=== PATIENT | male | born 1960 | race Caucasian/White ===

== ENCOUNTER 2017-02-06 14:15 | Inpatient (IN) | payer OTHER ==
[2017-02-06 14:24] VITALS: BMI 28.8
--- NOTE | 2017-02-06 14:26 | HP ---
CIWA Score - CIWA Score Nausea/Vomitin-Mild Nausea/No Vomiting Muscle Tremors: 4-Moderate,w/Arms Extend Anxiety: 4-Mod. Anxious/Guarded Agitation: 4-Moderately Restless Paroxysmal Sweats: 1-Minimal Palms Moist Orientation: 1-Uncertain about Date Tacttile Disturbances: 0-None Auditory Disturbances: 0-None Visual Disturbances: 0-None Headache: 1-Very Mild CIWA-Ar Total Score: 16 Admission ROS BHS - HPI Chief Complaint: withdrawal sx Allergies/Adverse Reactions: Allergies Allergy/AdvReac Type Severity Reaction Status Date / Time No Known Allergies Allergy Verified 02/06/17 14:22 History of Present Illness: 57 years old male with long history of alcohol nicotine dependence has hypertension history of pulmonary embolism treated with coumadin bipolar ii is admitted to detox Exam Limitations: No Limitations - Ebola screening Have you traveled outside of the country in the last 21 days: No Have you had contact with anyone from an Ebola affected area: No Have you been sick,other than usual withdrawal symptoms: No Do you have a fever: No - Review of Systems Constitutional: Changes in sleep, Weight Stable EENT: reports: Blurred Vision (eye glasses) Respiratory: reports: SOB with Exertion Cardiac: reports: No Symptoms Reported GI: reports: Diarrhea, Nausea, Poor Fluid Intake, Indigestion, Abdominal cramping : reports: No Symptoms Reported Musculoskeletal: reports: Back Pain, Joint Pain, Muscle Pain, Neck Pain Integumentary: reports: No Symptoms Reported, Other (history of skin cancer) Neuro: reports: Seizure (2014 alcohol withdrawal), Tremors Endocrine: reports: No Symptoms Reported Hematology: reports: Blood Clots (pulmonary) Psychiatric: reports: Judgement Intact, Anxious, Depressed Other Systems: Reviewed and Negative Patient History - Patient Medical History Hx Anemia: No Hx Asthma: No Hx Chronic Obstructive Pulmonary Disease (COPD): No Hx Cancer: No Hx Cardiac Disorders: No Hx Congestive Heart Failure: No Hx Hypertension: Yes Hx Hypercholesterolemia: Yes (non compliance) Hx Pacemaker: No HX Cerebrovascular Accident: No Hx Seizures: Yes (etoh related) Hx Dementia: No Hx Diabetes: No Hx Gastrointestinal Disorders: Yes Hx Liver Disease: No Hx Genitourinary Disorders: No Hx Sexually Transmitted Disorders: No Hx Renal Disease (ESRD): No Hx Thyroid Disease: No Hx Human Immunodeficiency Virus (HIV): No Hx Hepatitis C: No Hx Depression: No (manic) Hx Suicide Attempt: Yes (jump [place] bridge 12 years) Hx Bipolar Disorder: Yes Hx Schizophrenia: No - Patient Surgical History Past Surgical History: Yes Hx Neurologic Surgery: No Hx Cataract Extraction: No Hx Cardiac Surgery: No Hx Lung Surgery: No Hx Breast Surgery: No Hx Breast Biopsy: No Hx Abdominal Surgery: Yes (s/p repair of right inguinal hernia repair ) Hx Appendectomy: No Hx Cholecystectomy: No Hx Genitourinary Surgery: No Hx Orthopedic Surgery: No Other Surgical History: arthroscopic surgery right knee for torn meniscus 20 years ago Anesthesia Reaction: No - PPD History Previous Implant?: Yes Documented Results: Negative w/proof Implanted On Prior R Admission?: Yes Date: 08/21/13 PPD to be Administered?: Yes - Smoking Cessation Smoking history: Current every day smoker Have you smoked in the past 12 months: Yes Aproximately how many cigarettes per day: 20 Cigars Per Day: 0 Hx Chewing Tobacco Use: No Initiated information on smoking cessation: Yes 'Breaking Loose' booklet given: 02/06/17 - Substance & Tx. History Hx Alcohol Use: Yes Hx Substance Use: No Substance Use Type: Alcohol Hx Substance Use Treatment: Yes (07/2016 [facility]) - Substances Abused Alcohol Route: Oral Frequency: Daily Amount used: 2-3 PINTS HARD LIQUOR Age of first use: 15 Date of Last Use: 02/05/17 Family Disease History - Family Disease History Family Disease History: Diabetes: Father, Mother (alzheimer), Heart Disease: Father, Other: Grandparent (alcohol), Mother Admission Physical Exam S - Physical General Appearance: Yes: Appropriately Dressed, Mild Distress, Tremorous, Irritable, Sweating, Anxious HEENTM: Yes: Hearing grossly Normal, Normal ENT Inspection, Normocephalic, Normal Voice Respiratory: Yes: Chest Non-Tender, Lungs Clear, Normal Breath Sounds, No Respiratory Distress, No Accessory Muscle Use Neck: Yes: Supple, Trachea in good position Breast: Yes: Breasts Symetrical Cardiology: Yes: Regular Rhythm, S1, S2, Tachycardia Abdominal: Yes: Non Tender, Soft, Increased Bowel Sounds Genitourinary: Yes: Within Normal Limits Back: Yes: Normal Inspection Musculoskeletal: Yes: full range of Motion, Gait Steady, Back pain, Muscle Pain Extremities: Yes: Normal Inspection, Normal Range of Motion, Non-Tender, Tremors Neurological: Yes: Alert, Motor Strength 5/5, Normal Response, Depressed Affect Integumentary: Yes: Warm, Other (history of alcohol seizure) Lymphatic: Yes: Within Normal Limits - Diagnostic (1) Alcohol dependence with uncomplicated withdrawal Current Visit: Yes Status: Acute (2) Bipolar II disorder Current Visit: Yes Status: Suspected (3) Neuropathy, alcoholic Current Visit: Yes Status: Chronic (4) Seizure due to alcohol withdrawal Current Visit: Yes Status: Inactive (5) Pulmonary embolism Current Visit: Yes Status: Resolved Qualifiers: Pulmonary embolism type: other Chronicity: chronic Acute cor pulmonale presence: without acute cor pulmonale Qualified Code(s): I27.82 - Chronic pulmonary embolism (6) Essential hypertension Current Visit: Yes Status: Chronic (7) Gastroesophageal reflux disease Current Visit: Yes Status: Chronic (8) Hypercholesterolemia Current Visit: Yes Status: Chronic (9) Nicotine dependence Current Visit: Yes Status: Acute Qualifiers: Nicotine product type: cigarettes Substance use status: in withdrawal Qualified Code(s): F17.213 - Nicotine dependence, cigarettes, with withdrawal Cleared for Admission BHS - Detox or Rehab S Level of Care: Medically Managed Detox Regimen/Protocol: Librium S Breath Alcohol Content Breath Alcohol Content: 0
[2017-02-06] MEDS ORDERED: MAGNESIUM CITRATE 300 ML BOTTLE PO PRN (14:27)
[2017-02-06] MEDS ORDERED: MAG HYDROX/AL HYDROX/SIMETH 30 ML UNIT-DOSE CUP PO PRN (14:27)
[2017-02-06] MEDS ORDERED: ACETAMINOPHEN 325 MG TABLET (FP) PO PRN (14:27)
[2017-02-06] MEDS ORDERED: MENTHOL/PHENOL 1 EACH UD MM PRN (14:27)
[2017-02-06] MEDS ORDERED: chlordiazePOXIDE HCL 25 MG CAPSULE PO PRN (14:27)
[2017-02-06] MEDS ORDERED: MAGNESIUM HYDROX 2400MG/30ML ORAL SUSPENSION 30 ML CUP PO PRN (14:27)
[2017-02-06] MEDS ORDERED: guaiFENesin/D-METHORPHAN HB 10 ML UNIT-DOSE CUPS PO PRN (14:27)
[2017-02-06] MEDS ORDERED: NICOTINE POLACRILEX 4 MG GUM BUC PRN (14:27)
[2017-02-06] MEDS ORDERED: P-EPHED 60MG/TRIPROLIDI 2.5MG TABLET PO PRN (14:27)
[2017-02-06] MEDS ORDERED: chlordiazePOXIDE HCL 25 MG CAPSULE PO ONE (14:35)
[2017-02-06] MEDS ORDERED: chlordiazePOXIDE HCL 25 MG CAPSULE ONE (17:25)
[2017-02-06] MEDS ORDERED: ENALAPRIL MALEATE 10 MG TABLET (FP) PO ONE (17:38)
[2017-02-06] MEDS: RANITIDINE HCL 150 MG TABLET (FP) PO SCH (22:05)
[2017-02-06] MEDS: chlordiazePOXIDE HCL 25 MG CAPSULE PO SCH (22:05)
[2017-02-06] MEDS: THIAMINE HCL 100 MG TABLET (FP) PO SCH (22:05)
[2017-02-06 22:51] LABS: URINE APPEARANCE SLCLOUDY; URINE BILIRUBIN NEGATIVE (NEGATIVE); URINE BLOOD NEGATIVE (NEGATIVE); URINE COLOR AMBER; URINE GLUCOSE (UA) NEGATIVE (NEGATIVE); URINE KETONE NEGATIVE (NEGATIVE); URINE LEUK ESTERASE NEGATIVE (NEGATIVE); URINE NITRITE NEGATIVE (NEGATIVE); URINE PROTEIN NEGATIVE (NEGATIVE); URINE UROBILINOGEN NEGATIVE mg/dL (0.2-1.0)
[2017-02-07] MEDS: chlordiazePOXIDE HCL 25 MG CAPSULE PO SCH ×4 (05:22→22:04)
[2017-02-07 09:56] LABS: MCHC 32.4 g/dl (32.0-35.9); MEAN CELL VOLUME 92.4 fl (80-96); MEAN PLT VOLUME 7.9 fl (7.5-11.1); PLATELET COUNT 184 K/MM3 (134-434); RDW 15.9 % (11.9-15.9); WHITE BLOOD COUNT 5.9 K/mm3 (4.0-10.0)
[2017-02-07] MEDS: PRENATAL VITAMINS W/ FOLIC ACID TABLET (FP) PO SCH (10:02)
[2017-02-07] MEDS: RANITIDINE HCL 150 MG TABLET (FP) PO SCH ×2 (10:02→22:04)
[2017-02-07] MEDS: ENALAPRIL MALEATE 10 MG TABLET (FP) PO SCH (10:02)
[2017-02-07] MEDS: NICOTINE 21 MG/24 HOURS TOPICAL PATCH TD SCH (10:03)
[2017-02-07 10:20] LABS: INR 0.94 (0.82-1.09); PROTHROMBIN TIME (PATIENT) 10.6 SEC (9.98-11.88)
[2017-02-07 10:24] LABS: ALBUMIN 3.3 g/dl (3.4-5.0); ALK PHOS 77 U/L (45-117); ANION GAP 8 (8-16); BILIRUBIN,TOTAL 0.7 mg/dL (0.2-1.0); CALCIUM 8.6 mg/dL (8.5-10.1); CO2 28 mmol/L (21-32); GLUCOSE,RANDOM 100 mg/dL (74-106); SGOT/AST 12 U/L (15-37); SGPT/ALT 15 U/L (12-78); TOT PROT 6.3 g/dl (6.4-8.2)
--- NOTE | 2017-02-07 10:40 | CONSULT ---
[facility] Psychiatric Consult - Data Date of interview: 02/07/17 Admission source: [facility] Identifying data: Readmission to [facility] for this 57 y/o male seeking detox treatment on for alcohol dependence.Patient is ,a father of one,domiciled,unemployed andcurrently supported by relatives. Substance Abuse History: Discussed in this session.Mr Ortega admits to active use of alcohol on a daily basis.See current [facility] report for details : Smoking history: Current every day smoker. Have you smoked in the past 12 months: Yes. Aproximately how many cigarettes per day: 20. Cigars Per Day: 0. Hx Chewing Tobacco Use: No. Initiated information on smoking cessation: Yes. 'Breaking Loose' booklet given: 02/06/17. - Substance & Tx. History. Hx Alcohol Use: Yes. Hx Substance Use: No. Substance Use Type: Alcohol. Hx Substance Use Treatment: Yes (07/2016 [facility]). - Substances Abused. Alcohol. Route: Oral. Frequency: Daily. Amount used: 2-3 PINTS HARD LIQUOR. Age of first use : 15. Date of Last Use: 02/05/17 Medical History: Hypertension,dyslipidemia,withdrawal-related seizures,GERD, neuropathy,past history of right inguinal herniorraphy and arthroscopic surgery of right knee (years ago). Psychiatric History: Patient admits to a history of multiple psychiatric hospitalizations ([facility], [facility]).Diagnosed with Bipolar Disorder,OCD,ADHD as per self-report.Prescibed lamictal 150 mg po bid + trazodone 200 mg/hs + wellbutrin XL 300 mg/daily.Last taken in early December 2016.Mr Ortega reports that he stopped taking his medications immediately after his release from correction (four months of incarceration at the [facility]).Prior to his incarceration,the patient was followed at the [facility] clinic in [facility].No suicide attempt reported (was prevented by Police on the [facility],years ago,from attempting suicide). Physical/Sexual Abuse/Trauma History: Patient denies history of abuse. Additional Comment: No toxicology available on admission. Mental Status Exam - Mental Status Exam Alert and Oriented to: Time, Place, Person Cognitive Function: Good Patient Appearance: Unkempt, Disheveled (unshaven) Mood: Hopeful, Euthymic Affect: Appropriate, Normal Range Patient Behavior: Fatigued, Appropriate (pleasant and friendly), Cooperative Speech Pattern: Clear, Appropriate Voice Loudness: Normal Thought Process: Goal Oriented Thought Disorder: Not Present Hallucinations: Denies Suicidal Ideation: Denies Homicidal Ideation: Denies Insight/Judgement: Poor Sleep: Poorly, Difficulty falling asleep Appetite: Good Muscle strength/Tone: Normal Gait/Station: Normal Psychiatric Findings - Problem List ([place] 1, 2,3) (1) Alcohol dependence with uncomplicated withdrawal Current Visit: Yes Status: Acute (2) Nicotine dependence Current Visit: Yes Status: Acute Qualifiers: Nicotine product type: cigarettes Substance use status: in withdrawal Qualified Code(s): F17.213 - Nicotine dependence, cigarettes, with withdrawal (3) Substance induced mood disorder Current Visit: Yes Status: Acute (4) Bipolar disorder Current Visit: Yes Status: Chronic Comment: Self-report.Non-adherent to prescribed medications. (5) Insomnia Current Visit: Yes Status: Acute - Initial Treatment Plan Initial Treatment Plan: Psychoeducation.Detoxification.Sleep hygiene.Medications : wellbutrin XL 150 mg po hs + trazodone 100 mg po hs.Lamictal not restarted (patient declines to have the drug resumed at a reduced dose).Side effects/benefits of lamictal,wellbutrin/trazodone are discussed with patient (including risks for Smyth Sreekanth's syndrome,seizures and priapism) are discussed with the patient.Mr Ortega agrees with this careplan.Observation.Contact made with [employer] # [id number] ([phone]) for review of pharmacy claims : patient NOT on file.
--- NOTE | 2017-02-07 11:08 | PN ---
[facility] CIWA - CIWA Score Nausea/Vomitin-No Nausea/No Vomiting Muscle Tremors: 4-Moderate,w/Arms Extend Anxiety: 4-Mod. Anxious/Guarded Agitation: 4-Moderately Restless Paroxysmal Sweats: 1-Minimal Palms Moist Orientation: 0-Oriented Tacttile Disturbances: 3-Moderate Itch/Numb/Burn Auditory Disturbances: 0-None Visual Disturbances: 0-None Headache: 0-None Present CIWA-Ar Total Score: 16 BHS Progress Note (SOAP) Subjective: ANXIETY,SWEATS,TREMORS, INTERMITTENT SLEEP. Objective: 02/07/17 11:08 Vital Signs Temperature 97.6 F 02/07/17 09:15 Pulse Rate 83 02/07/17 09:15 Respiratory Rate 18 02/07/17 09:15 Blood Pressure 113/82 02/07/17 09:15 O2 Sat by Pulse Oximetry (%) Laboratory Last Values WBC 5.9 K/mm3 (4.0-10.0) 02/07/17 07:00 RBC 4.76 M/mm3 (4.00-5.60) 02/07/17 07:00 Hgb 14.3 GM/dL (11.7-16.9) 02/07/17 07:00 Hct 44.0 % (35.4-49) 02/07/17 07:00 MCV 92.4 fl (80-96) 02/07/17 07:00 MCH 30.0 pg (25.7-33.7) 02/07/17 07:00 MCHC 32.4 g/dl (32.0-35.9) 02/07/17 07:00 RDW 15.9 % (11.9-15.9) 02/07/17 07:00 Plt Count 184 K/MM3 (134-434) 02/07/17 07:00 MPV 7.9 fl (7.5-11.1) 02/07/17 07:00 PT with INR 10.60 SEC (9.98-11.88) 02/07/17 07:00 INR 0.94 (0.82-1.09) 02/07/17 07:00 Sodium 140 mmol/L (136-145) 02/07/17 07:00 Potassium 4.1 mmol/L (3.5-5.1) 02/07/17 07:00 Chloride 104 mmol/L (98-107) 02/07/17 07:00 Carbon Dioxide 28 mmol/L (21-32) 02/07/17 07:00 Anion Gap 8 (8-16) 02/07/17 07:00 BUN 14 mg/dL (7-18) D 02/07/17 07:00 Creatinine 1.0 mg/dL (0.7-1.3) 02/07/17 07:00 Creat Clearance w eGFR > 60 (>60) 02/07/17 07:00 Random Glucose 100 mg/dL (74-106) D 02/07/17 07:00 Calcium 8.6 mg/dL (8.5-10.1) 02/07/17 07:00 Total Bilirubin 0.7 mg/dL (0.2-1.0) 02/07/17 07:00 AST 12 U/L (15-37) L D 02/07/17 07:00 ALT 15 U/L (12-78) D 02/07/17 07:00 Alkaline Phosphatase 77 U/L (45-117) 02/07/17 07:00 Total Protein 6.3 g/dl (6.4-8.2) L 02/07/17 07:00 Albumin 3.3 g/dl (3.4-5.0) L 02/07/17 07:00 Urine Color Eli 02/06/17 20:00 Urine Appearance Slcloudy 02/06/17 20:00 Urine pH 5.0 (5.0-8.0) 02/06/17 20:00 Ur Specific [place] 1.020 (1.001-1.035) 02/06/17 20:00 Urine Protein Negative (NEGATIVE) 02/06/17 20:00 Urine Glucose (UA) Negative (NEGATIVE) 02/06/17 20:00 Urine Ketones Negative (NEGATIVE) 02/06/17 20:00 Urine Blood Negative (NEGATIVE) 02/06/17 20:00 Urine Nitrite Negative (NEGATIVE) 02/06/17 20:00 Urine Bilirubin Negative (NEGATIVE) 02/06/17 20:00 Urine Urobilinogen Negative mg/dL (0.2-1.0) 02/06/17 20:00 Assessment: 02/07/17 11:08 WITHDRAWAL SX Plan: CONTINUE DETOX
[2017-02-07] MEDS ORDERED: chlordiazePOXIDE HCL 25 MG CAPSULE PO ONE (14:30)
[2017-02-07] MEDS: WARFARIN NA 3 MG TABLET PO SCH (17:01)
[2017-02-07 17:17] LABS: URINE LEUK ESTERASE Negative (NEGATIVE)
[2017-02-07] MEDS: traZODone HCL 100 MG TABLET (FP) PO SCH (22:04)
[2017-02-07] MEDS: THIAMINE HCL 100 MG TABLET (FP) PO SCH (22:04)
--- NOTE | 2017-02-08 01:55 | EKG ---
Test Reason : Blood Pressure : / mmHG Vent. Rate : 100 BPM Atrial Rate : 100 BPM P-R Int : 156 ms QRS Dur : 114 ms QT Int : 382 ms P-R-T Axes : -10 -04 -01 degrees QTc Int : 492 ms NORMAL SINUS RHYTHM INCOMPLETE RIGHT BUNDLE BRANCH BLOCK INFERIOR INFARCT , AGE UNDETERMINED CANNOT RULE OUT ANTERIOR INFARCT , AGE UNDETERMINED ABNORMAL ECG NO PREVIOUS ECGS AVAILABLE Confirmed by MAYCO PRITCHETT MD ([id number]) on 02/08/2017 1:55:11 AM Referred By: Confirmed By:MAYCO PRITCHETT MD
[2017-02-08] MEDS: chlordiazePOXIDE HCL 25 MG CAPSULE PO SCH ×3 (05:34→17:19)
[2017-02-08] MEDS: PRENATAL VITAMINS W/ FOLIC ACID TABLET (FP) PO SCH (10:09)
[2017-02-08] MEDS: RANITIDINE HCL 150 MG TABLET (FP) PO SCH ×2 (10:09→22:04)
[2017-02-08] MEDS: NICOTINE 21 MG/24 HOURS TOPICAL PATCH TD SCH (10:09)
[2017-02-08] MEDS: ENALAPRIL MALEATE 10 MG TABLET (FP) PO SCH (10:10)
--- NOTE | 2017-02-08 10:57 | PN ---
[facility] CIWA - CIWA Score Nausea/Vomitin-No Nausea/No Vomiting Muscle Tremors: 4-Moderate,w/Arms Extend Anxiety: 5 Agitation: 4-Moderately Restless Paroxysmal Sweats: 1-Minimal Palms Moist Orientation: 0-Oriented Tacttile Disturbances: 3-Moderate Itch/Numb/Burn Auditory Disturbances: 0-None Visual Disturbances: 0-None Headache: 0-None Present CIWA-Ar Total Score: 17 S Progress Note (SOAP) Subjective: TREMULOUS, ANXIETY,CHILLS, FATIGUE. Objective: 02/08/17 10:56 Vital Signs Temperature 97.2 F L 02/08/17 08:59 Pulse Rate 76 02/08/17 08:59 Respiratory Rate 18 02/08/17 08:59 Blood Pressure 107/75 02/08/17 08:59 O2 Sat by Pulse Oximetry (%) Laboratory Last Values WBC 5.9 K/mm3 (4.0-10.0) 02/07/17 07:00 RBC 4.76 M/mm3 (4.00-5.60) 02/07/17 07:00 Hgb 14.3 GM/dL (11.7-16.9) 02/07/17 07:00 Hct 44.0 % (35.4-49) 02/07/17 07:00 MCV 92.4 fl (80-96) 02/07/17 07:00 MCH 30.0 pg (25.7-33.7) 02/07/17 07:00 MCHC 32.4 g/dl (32.0-35.9) 02/07/17 07:00 RDW 15.9 % (11.9-15.9) 02/07/17 07:00 Plt Count 184 K/MM3 (134-434) 02/07/17 07:00 MPV 7.9 fl (7.5-11.1) 02/07/17 07:00 PT with INR 10.60 SEC (9.98-11.88) 02/07/17 07:00 INR 0.94 (0.82-1.09) 02/07/17 07:00 Sodium 140 mmol/L (136-145) 02/07/17 07:00 Potassium 4.1 mmol/L (3.5-5.1) 02/07/17 07:00 Chloride 104 mmol/L (98-107) 02/07/17 07:00 Carbon Dioxide 28 mmol/L (21-32) 02/07/17 07:00 Anion Gap 8 (8-16) 02/07/17 07:00 BUN 14 mg/dL (7-18) D 02/07/17 07:00 Creatinine 1.0 mg/dL (0.7-1.3) 02/07/17 07:00 Creat Clearance w eGFR > 60 (>60) 02/07/17 07:00 Random Glucose 100 mg/dL (74-106) D 02/07/17 07:00 Calcium 8.6 mg/dL (8.5-10.1) 02/07/17 07:00 Total Bilirubin 0.7 mg/dL (0.2-1.0) 02/07/17 07:00 AST 12 U/L (15-37) L D 02/07/17 07:00 ALT 15 U/L (12-78) D 02/07/17 07:00 Alkaline Phosphatase 77 U/L (45-117) 02/07/17 07:00 Total Protein 6.3 g/dl (6.4-8.2) L 02/07/17 07:00 Albumin 3.3 g/dl (3.4-5.0) L 02/07/17 07:00 Urine Color Eli 02/06/17 20:00 Urine Appearance Slcloudy 02/06/17 20:00 Urine pH 5.0 (5.0-8.0) 02/06/17 20:00 Ur Specific [place] 1.020 (1.001-1.035) 02/06/17 20:00 Urine Protein Negative (NEGATIVE) 02/06/17 20:00 Urine Glucose (UA) Negative (NEGATIVE) 02/06/17 20:00 Urine Ketones Negative (NEGATIVE) 02/06/17 20:00 Urine Blood Negative (NEGATIVE) 02/06/17 20:00 Urine Nitrite Negative (NEGATIVE) 02/06/17 20:00 Urine Bilirubin Negative (NEGATIVE) 02/06/17 20:00 Urine Urobilinogen Negative mg/dL (0.2-1.0) 02/06/17 20:00 Ur Leukocyte Esterase Negative (NEGATIVE) 02/06/17 20:00 RPR Titer Nonreactive (NONREACTIVE) 02/07/17 07:00 Assessment: 02/08/17 10:56 WITHDRAWAL SX Plan: CONTINUE DETOX
[2017-02-08] MEDS: WARFARIN NA 3 MG TABLET PO SCH (17:19)
--- NOTE | 2017-02-08 18:00 | PN ---
[facility] Progress Note Note: received nurse call that the patient refuses his Coumadin needed to be seen by a provider inr 0.94, last dose 12/22/16 no shortness of breath, no difficulty in breathing patient is eating dinner and talking to the provider, denies dizziness, alert oriented x 3, no acute distress patient requests ultrasound recommend complete detox is priority at this time may follow up with the primary care provider continue detox
[2017-02-08] MEDS: traZODone HCL 100 MG TABLET (FP) PO SCH (22:04)
[2017-02-08] MEDS: chlordiazePOXIDE 5 MG CAPSULE PO SCH (22:04)
[2017-02-08] MEDS: THIAMINE HCL 100 MG TABLET (FP) PO SCH (22:04)
[2017-02-09] MEDS: chlordiazePOXIDE 5 MG CAPSULE PO SCH ×3 (07:17→18:00)
[2017-02-09] MEDS: LOPERAMIDE HCL 2 MG CAPSULE PO PRN ×3 (07:35→23:18)
[2017-02-09] MEDS ORDERED: TRIMETHOBENZAMIDE HCL 200MG/2ML INJ IM ONE (08:19)
[2017-02-09] MEDS: NICOTINE 21 MG/24 HOURS TOPICAL PATCH TD SCH (10:31)
[2017-02-09] MEDS: RANITIDINE HCL 150 MG TABLET (FP) PO SCH ×2 (10:31→22:11)
[2017-02-09] MEDS: ENALAPRIL MALEATE 10 MG TABLET (FP) PO SCH (10:31)
[2017-02-09] MEDS: PRENATAL VITAMINS W/ FOLIC ACID TABLET (FP) PO SCH (10:31)
--- NOTE | 2017-02-09 10:34 | PN ---
S Progress Note (SOAP) Subjective: ANXIETY,DIARRHEA,NAUSEA/VOMITING,INTERMITTENT SLEEP. Objective: 02/09/17 10:30 Vital Signs 02/09/17 02/09/17 02/09/17 03:38 05:54 09:04 Temperature 97.7 F 98.4 F Pulse Rate 107 H 99 H Respiratory 18 18 20 Rate Blood Pressure 110/76 93/69 Laboratory Last Values WBC 5.9 K/mm3 (4.0-10.0) 02/07/17 07:00 RBC 4.76 M/mm3 (4.00-5.60) 02/07/17 07:00 Hgb 14.3 GM/dL (11.7-16.9) 02/07/17 07:00 Hct 44.0 % (35.4-49) 02/07/17 07:00 MCV 92.4 fl (80-96) 02/07/17 07:00 MCH 30.0 pg (25.7-33.7) 02/07/17 07:00 MCHC 32.4 g/dl (32.0-35.9) 02/07/17 07:00 RDW 15.9 % (11.9-15.9) 02/07/17 07:00 Plt Count 184 K/MM3 (134-434) 02/07/17 07:00 MPV 7.9 fl (7.5-11.1) 02/07/17 07:00 PT with INR 10.60 SEC (9.98-11.88) 02/07/17 07:00 INR 0.94 (0.82-1.09) 02/07/17 07:00 Sodium 140 mmol/L (136-145) 02/07/17 07:00 Potassium 4.1 mmol/L (3.5-5.1) 02/07/17 07:00 Chloride 104 mmol/L (98-107) 02/07/17 07:00 Carbon Dioxide 28 mmol/L (21-32) 02/07/17 07:00 Anion Gap 8 (8-16) 02/07/17 07:00 BUN 14 mg/dL (7-18) D 02/07/17 07:00 Creatinine 1.0 mg/dL (0.7-1.3) 02/07/17 07:00 Creat Clearance w eGFR > 60 (>60) 02/07/17 07:00 Random Glucose 100 mg/dL (74-106) D 02/07/17 07:00 Calcium 8.6 mg/dL (8.5-10.1) 02/07/17 07:00 Total Bilirubin 0.7 mg/dL (0.2-1.0) 02/07/17 07:00 AST 12 U/L (15-37) L D 02/07/17 07:00 ALT 15 U/L (12-78) D 02/07/17 07:00 Alkaline Phosphatase 77 U/L (45-117) 02/07/17 07:00 Total Protein 6.3 g/dl (6.4-8.2) L 02/07/17 07:00 Albumin 3.3 g/dl (3.4-5.0) L 02/07/17 07:00 Urine Color Eli 02/06/17 20:00 Urine Appearance Slcloudy 02/06/17 20:00 Urine pH 5.0 (5.0-8.0) 02/06/17 20:00 Ur Specific [place] 1.020 (1.001-1.035) 02/06/17 20:00 Urine Protein Negative (NEGATIVE) 02/06/17 20:00 Urine Glucose (UA) Negative (NEGATIVE) 02/06/17 20:00 Urine Ketones Negative (NEGATIVE) 02/06/17 20:00 Urine Blood Negative (NEGATIVE) 02/06/17 20:00 Urine Nitrite Negative (NEGATIVE) 02/06/17 20:00 Urine Bilirubin Negative (NEGATIVE) 02/06/17 20:00 Urine Urobilinogen Negative mg/dL (0.2-1.0) 02/06/17 20:00 Ur Leukocyte Esterase Negative (NEGATIVE) 02/06/17 20:00 RPR Titer Nonreactive (NONREACTIVE) 02/07/17 07:00 Assessment: 02/09/17 10:31 WITHDRAWAL SX Plan: CONTINUE DETOX INCREASE PO FLUIDS. TIGAN DIRECTED IMODIUM PRN
[2017-02-09 14:35] LABS: INR 0.9 (0.82-1.09); PROTHROMBIN TIME (PATIENT) 10.2 SEC (9.98-11.88)
[2017-02-09] MEDS: WARFARIN NA 2 MG TABLET (UD) PO SCH (18:18)
[2017-02-09] MEDS: chlordiazePOXIDE HCL 10 MG CAPSULE PO SCH (22:11)
[2017-02-09] MEDS: THIAMINE HCL 100 MG TABLET (FP) PO SCH (22:11)
[2017-02-09] MEDS: traZODone HCL 100 MG TABLET (FP) PO SCH (22:11)
[2017-02-10] MEDS: chlordiazePOXIDE HCL 10 MG CAPSULE PO SCH ×3 (05:09→17:46)
[2017-02-10] MEDS ORDERED: TRIMETHOBENZAMIDE HCL 200MG/2ML INJ IM PRN (10:14)
[2017-02-10] MEDS: NICOTINE 21 MG/24 HOURS TOPICAL PATCH TD SCH (10:14)
[2017-02-10] MEDS: RANITIDINE HCL 150 MG TABLET (FP) PO SCH ×2 (10:14→22:09)
[2017-02-10] MEDS: PRENATAL VITAMINS W/ FOLIC ACID TABLET (FP) PO SCH (10:14)
[2017-02-10 11:13] LABS: INR 0.93 (0.82-1.09); PROTHROMBIN TIME (PATIENT) 10.5 SEC (9.98-11.88)
--- NOTE | 2017-02-10 11:45 | PN ---
[facility] Progress Note (SOAP) Subjective: Chills, tremor, sweating, interrupted sleep Objective: 02/10/17 11:43 Last Vital Signs Temp Pulse Resp BP Pulse Ox 98.0 F 104 H 18 100/72 02/10/17 09:13 02/10/17 09:13 02/10/17 09:13 02/10/17 09:13 Laboratory Tests 02/06/17 02/07/17 02/07/17 20:00 07:00 07:00 WBC 5.9 RBC 4.76 Hgb 14.3 Hct 44.0 MCV 92.4 MCH 30.0 MCHC 32.4 RDW 15.9 Plt Count 184 MPV 7.9 PT with INR 10.60 INR 0.94 Sodium Potassium Chloride Carbon Dioxide Anion Gap BUN Creatinine Creat Clearance w eGFR Random Glucose Calcium Total Bilirubin AST ALT Alkaline Phosphatase Total Protein Albumin Urine Color Eli Urine Appearance Slcloudy Urine pH 5.0 Ur Specific [place] 1.020 Urine Protein Negative Urine Glucose (UA) Negative Urine Ketones Negative Urine Blood Negative Urine Nitrite Negative Urine Bilirubin Negative Urine Urobilinogen Negative Ur Leukocyte Esterase Negative RPR Titer 02/07/17 02/07/17 02/09/17 07:00 07:00 12:40 WBC RBC Hgb Hct MCV MCH MCHC RDW Plt Count MPV PT with INR 10.20 INR 0.90 Sodium 140 Potassium 4.1 Chloride 104 Carbon Dioxide 28 Anion Gap 8 BUN 14 D Creatinine 1.0 Creat Clearance w eGFR > 60 Random Glucose 100 D Calcium 8.6 Total Bilirubin 0.7 AST 12 L D ALT 15 D Alkaline Phosphatase 77 Total Protein 6.3 L Albumin 3.3 L Urine Color Urine Appearance Urine pH Ur Specific [place] Urine Protein Urine Glucose (UA) Urine Ketones Urine Blood Urine Nitrite Urine Bilirubin Urine Urobilinogen Ur Leukocyte Esterase RPR Titer Nonreactive 02/10/17 07:00 WBC RBC Hgb Hct MCV MCH MCHC RDW Plt Count MPV PT with INR 10.50 INR 0.93 Sodium Potassium Chloride Carbon Dioxide Anion Gap BUN Creatinine Creat Clearance w eGFR Random Glucose Calcium Total Bilirubin AST ALT Alkaline Phosphatase Total Protein Albumin Urine Color Urine Appearance Urine pH Ur Specific [place] Urine Protein Urine Glucose (UA) Urine Ketones Urine Blood Urine Nitrite Urine Bilirubin Urine Urobilinogen Ur Leukocyte Esterase RPR Titer Labs noted Assessment: 02/10/17 11:44 Withdrawal symptoms Plan: Continue detox Encouraged to drink lots of water (at least 8 cups daily) for hydration
[2017-02-10] MEDS: WARFARIN NA 2 MG TABLET (UD) PO SCH (18:07)
[2017-02-10] MEDS: THIAMINE HCL 100 MG TABLET (FP) PO SCH (22:09)
[2017-02-10] MEDS: traZODone HCL 100 MG TABLET (FP) PO SCH (22:09)
[2017-02-11 10:14] LABS: INR 0.95 (0.82-1.09); PROTHROMBIN TIME (PATIENT) 10.7 SEC (9.98-11.88)
[2017-02-11] MEDS: NICOTINE 21 MG/24 HOURS TOPICAL PATCH TD SCH (10:33)
[2017-02-11] MEDS: PRENATAL VITAMINS W/ FOLIC ACID TABLET (FP) PO SCH (10:33)
[2017-02-11] MEDS: RANITIDINE HCL 150 MG TABLET (FP) PO SCH (10:33)
[2017-02-11] MEDS ORDERED: DIPHENOXYLATE 2.5/ATROPINE.025 1 COMBO TABLET PO PRN (13:04)
--- NOTE | 2017-02-11 13:13 | PN ---
S Progress Note (SOAP) Subjective: n/v/D (vomited x 2 this morning), interrupted sleep, tremor. Patient refused to continue imodium stating it doesn't help his diarrhea. Objective: 02/11/17 13:11 Last Vital Signs Temp Pulse Resp BP Pulse Ox 97.8 F 104 H 18 117/86 02/11/17 06:23 02/11/17 06:23 02/11/17 06:23 02/11/17 06:23 Laboratory Tests 02/06/17 02/07/17 02/07/17 20:00 07:00 07:00 WBC 5.9 RBC 4.76 Hgb 14.3 Hct 44.0 MCV 92.4 MCH 30.0 MCHC 32.4 RDW 15.9 Plt Count 184 MPV 7.9 PT with INR 10.60 INR 0.94 Sodium Potassium Chloride Carbon Dioxide Anion Gap BUN Creatinine Creat Clearance w eGFR Random Glucose Calcium Total Bilirubin AST ALT Alkaline Phosphatase Total Protein Albumin Urine Color Eli Urine Appearance Slcloudy Urine pH 5.0 Ur Specific [place] 1.020 Urine Protein Negative Urine Glucose (UA) Negative Urine Ketones Negative Urine Blood Negative Urine Nitrite Negative Urine Bilirubin Negative Urine Urobilinogen Negative Ur Leukocyte Esterase Negative RPR Titer 02/07/17 02/07/17 02/09/17 07:00 07:00 12:40 WBC RBC Hgb Hct MCV MCH MCHC RDW Plt Count MPV PT with INR 10.20 INR 0.90 Sodium 140 Potassium 4.1 Chloride 104 Carbon Dioxide 28 Anion Gap 8 BUN 14 D Creatinine 1.0 Creat Clearance w eGFR > 60 Random Glucose 100 D Calcium 8.6 Total Bilirubin 0.7 AST 12 L D ALT 15 D Alkaline Phosphatase 77 Total Protein 6.3 L Albumin 3.3 L Urine Color Urine Appearance Urine pH Ur Specific [place] Urine Protein Urine Glucose (UA) Urine Ketones Urine Blood Urine Nitrite Urine Bilirubin Urine Urobilinogen Ur Leukocyte Esterase RPR Titer Nonreactive 02/10/17 02/11/17 07:00 07:00 WBC RBC Hgb Hct MCV MCH MCHC RDW Plt Count MPV PT with INR 10.50 10.70 INR 0.93 0.95 Sodium Potassium Chloride Carbon Dioxide Anion Gap BUN Creatinine Creat Clearance w eGFR Random Glucose Calcium Total Bilirubin AST ALT Alkaline Phosphatase Total Protein Albumin Urine Color Urine Appearance Urine pH Ur Specific [place] Urine Protein Urine Glucose (UA) Urine Ketones Urine Blood Urine Nitrite Urine Bilirubin Urine Urobilinogen Ur Leukocyte Esterase RPR Titer Labs noted Assessment: 02/11/17 13:11 Withdrawal symptoms Plan: Continue detox Encouraged to drink lots of water for hydration Repeat BMP in AM D/C imodium and start lomotil q8hr prn (mdd 8 tablets) Hold off on discharge due to withdrawal symptoms
[2017-02-11] MEDS ORDERED: ONDANSETRON *ODT* 4 MG TABLET SL SCH (13:15)
[2017-02-11 13:29] VITALS: BP 105/78; PULSE 108; TEMP 97.5
--- NOTE | 2017-02-11 15:12 | DS ---
[facility] Detox Discharge Summary Admission Date: 02/06/17 Discharge Date: 02/11/17 - History Present History: Alcohol Dependence Additional Comments: Patient seen earlier today and discharge canceled as patient reported withdrawal symptoms. Patient now stating that he is feeling much better except for a little nausea but he is now ready for discharge. As per patient, a friend is coming to pick him up. Patient presently reported feeling better and insisted on leaving. Authorization Rep spoke with patient about his withdrawal symptoms and instructed patient to follow up with his PCP within 3 days and to proceed to ER if he feels sick. Patient verbalized understanding. Patient is tachycardic but still insisted on leaving. He is aware that he should at least stay until tomorrow morning but again insisted on leaving. - Physical Exam Results Vital Signs: Vital Signs Temperature 97.5 F L 02/11/17 13:28 Pulse Rate 108 H 02/11/17 13:28 Respiratory Rate 18 02/11/17 13:28 Blood Pressure 105/78 02/11/17 13:28 O2 Sat by Pulse Oximetry (%) Pertinent Admission Physical Exam Findings: Withdrawal symptoms Laboratory Tests 02/06/17 02/07/17 02/07/17 20:00 07:00 07:00 WBC 5.9 RBC 4.76 Hgb 14.3 Hct 44.0 MCV 92.4 MCH 30.0 MCHC 32.4 RDW 15.9 Plt Count 184 MPV 7.9 PT with INR 10.60 INR 0.94 Sodium Potassium Chloride Carbon Dioxide Anion Gap BUN Creatinine Creat Clearance w eGFR Random Glucose Calcium Total Bilirubin AST ALT Alkaline Phosphatase Total Protein Albumin Urine Color Eli Urine Appearance Slcloudy Urine pH 5.0 Ur Specific [place] 1.020 Urine Protein Negative Urine Glucose (UA) Negative Urine Ketones Negative Urine Blood Negative Urine Nitrite Negative Urine Bilirubin Negative Urine Urobilinogen Negative Ur Leukocyte Esterase Negative RPR Titer 02/07/17 02/07/17 02/09/17 07:00 07:00 12:40 WBC RBC Hgb Hct MCV MCH MCHC RDW Plt Count MPV PT with INR 10.20 INR 0.90 Sodium 140 Potassium 4.1 Chloride 104 Carbon Dioxide 28 Anion Gap 8 BUN 14 D Creatinine 1.0 Creat Clearance w eGFR > 60 Random Glucose 100 D Calcium 8.6 Total Bilirubin 0.7 AST 12 L D ALT 15 D Alkaline Phosphatase 77 Total Protein 6.3 L Albumin 3.3 L Urine Color Urine Appearance Urine pH Ur Specific Townsend Urine Protein Urine Glucose (UA) Urine Ketones Urine Blood Urine Nitrite Urine Bilirubin Urine Urobilinogen Ur Leukocyte Esterase RPR Titer Nonreactive 02/10/17 02/11/17 07:00 07:00 WBC RBC Hgb Hct MCV MCH MCHC RDW Plt Count MPV PT with INR 10.50 10.70 INR 0.93 0.95 Sodium Potassium Chloride Carbon Dioxide Anion Gap BUN Creatinine Creat Clearance w eGFR Random Glucose Calcium Total Bilirubin AST ALT Alkaline Phosphatase Total Protein Albumin Urine Color Urine Appearance Urine pH Ur Specific Townsend Urine Protein Urine Glucose (UA) Urine Ketones Urine Blood Urine Nitrite Urine Bilirubin Urine Urobilinogen Ur Leukocyte Esterase RPR Titer Labs noted - Treatment Hospital Course: Detox Protocol Followed, Detoxed Safely, Responded well, Discharged Condition Good - Medication Discharge Medications: Ambulatory Orders Enalapril Maleate [Vasotec -] 20 mg PO DAILY 08/19/13 Pravastatin Sodium [Pravachol -] 20 mg PO HS 08/19/13 Bupropion HCl [Wellbutrin Xl -] 300 mg PO DAILY #30 tab.sr.24h 08/20/13 Lamotrigine [Lamotrigine -] 150 mg PO BID #60 tablet 08/20/13 Trazodone HCl [Desyrel -] 300 mg PO HS #30 tablet 08/20/13 Warfarin Na [Coumadin] 3 mg PO DAILY 02/06/17 - Diagnosis (1) Alcohol dependence with uncomplicated withdrawal Current Visit: Yes Status: Acute (2) Nicotine dependence Current Visit: Yes Status: Chronic Qualifiers: Nicotine product type: cigarettes Substance use status: in withdrawal Qualified Code(s): F17.213 - Nicotine dependence, cigarettes, with withdrawal (3) Essential hypertension Current Visit: Yes Status: Chronic (4) Gastroesophageal reflux disease Current Visit: Yes Status: Chronic (5) Hypercholesterolemia Current Visit: Yes Status: Chronic (6) Neuropathy Current Visit: Yes Status: Chronic (7) Seizure due to alcohol withdrawal Current Visit: Yes Status: Chronic Qualifiers: Complication of substance-induced condition: with unspecified complication Qualified Code(s): F10.239 - Alcohol dependence with withdrawal, unspecified; R56.9 - Unspecified convulsions; R56.9 - Unspecified convulsions; R56.9 - Unspecified convulsions; R56.9 - Unspecified convulsions - AMA Did Patient Leave Against Medical Advice: No (F/U with PCP within 3 days, go to ER stat if feels sick)
--- NOTE | 2017-02-11 17:59 | PN ---
S Progress Note Note: Psychiatry Attending's note : Met briefly with patient earlier during the day. Issue : scripts for medications at discharge. Mr Ortega has declined to accept scripts for trazodone and wellbutrin.
== END 2017-02-11 15:33 | disposition home or self-care (01) | DRG 775 ==
LOC: YASAS 14:15 → Y3N 15:21
PROVIDERS: ADMIT Internal Medicine; ATTEND Internal Medicine
PROC: HZ2ZZZZ Detoxification Services for Substance Abuse Treatment (ICD-10-PCS; principal; 2017-02-06)
DX: F10.230 Alcohol dependence with withdrawal, uncomplicated (principal); F17.213 Nicotine dependence, cigarettes, with withdrawal; F31.81 Bipolar II disorder; I10 Essential (primary) hypertension; K21.9 Gastro-esophageal reflux disease without esophagitis; E78.5 Hyperlipidemia, unspecified; G62.9 Polyneuropathy, unspecified; G47.00 Insomnia, unspecified; Z86.69 Personal history of other diseases of the nervous system and sense organs; Z86.711 Personal history of pulmonary embolism; Z91.14 Patient's other noncompliance with medication regimen; Z91.5 Personal history of self-harm
CPT/HCPCS: 36415; 80053; 81003; 85027; 85610; 86593; 93005; 93010

== ENCOUNTER 2017-03-06 21:46 | Emergency (ER) | payer OTHER ==
[2017-03-06] MEDS ORDERED: FOLIC ACID INJECTION - 1 MG, THIAMINE HCL 100 MG, MULTIVIT INJECTION ADULT 10 ML in SOD... IVPB ONE (22:34)
--- NOTE | 2017-03-06 22:43 | PDOC ---
Attending Attestation - Resident Resident Name: Julio Wylie - ED Attending Attestation I have performed the following: I have examined & evaluated the patient, The case was reviewed & discussed with the resident, I agree w/resident's findings & plan - HPI HPI: 03/07/17 00:04 Pt comes with alcohol intox -tachy, slight withdrawal - and he wants detox. He is A+Ox3 No distress. - Physicial Exam PE: 03/07/17 00:04 Agree with resident exam. - Medical Decision Making 03/07/17 00:04 Pt's labs are normal; pt will be sent to detox with our hospital security. 03/07/17 00:05 Alcohol level 100.5 in the ER. Stabke to go to the other side. 03/07/17 00:06 K+ given by me
--- NOTE | 2017-03-06 22:58 | PDOC ---
History of Present Illness - General Chief Complaint: Alcohol intoxication Stated Complaint: INTOX Time Seen by Provider: 03/06/17 21:54 History Source: Patient Exam Limitations: No Limitations - History of Present Illness Initial Comments: 03/06/17 22:53 57m with pmh of hypertension, hcl and depression presents to the ED by foot, looking anxious asking to go to rehab and get detoxed. He admits to had just had alcohol but his hands show tremors. He states that he has high blood pressure but hasnt had it checked in a while. Used to be on sertraline, trazodone. Drinks a pint of vodka a day, but today drank 2 pints. wants to be rehabilitated. 03/06/17 22:58 03/06/17 23:32 Past History - Past Medical History Allergies/Adverse Reactions: Allergies Allergy/AdvReac Type Severity Reaction Status Date / Time No Known Allergies Allergy Verified 03/06/17 22:27 Home Medications: Ambulatory Orders Enalapril Maleate [Vasotec -] 20 mg PO DAILY 08/19/13 Pravastatin Sodium [Pravachol -] 20 mg PO HS 08/19/13 Bupropion HCl [Wellbutrin Xl -] 300 mg PO DAILY #30 tab.sr.24h 08/20/13 Lamotrigine [Lamotrigine -] 150 mg PO BID #60 tablet 08/20/13 Trazodone HCl [Desyrel -] 300 mg PO HS #30 tablet 08/20/13 Warfarin Na [Coumadin] 3 mg PO DAILY 02/06/17 Anemia: No Asthma: No Cancer: No Cardiac Disorders: No CVA: Yes (Brain bleed 2016) COPD: No CHF: No Dementia: No Diabetes: No GI Disorders: Yes Disorders: No HTN: Yes Hypercholesterolemia: Yes (non compliance) Kidney Stones: No Liver Disease: No Seizures: Yes (etoh related) Thyroid Disease: No - Surgical History Abdominal Surgery: Yes (s/p repair of right inguinal hernia repair ) Appendectomy: No Cardiac Surgery: No Cholecystectomy: No Lung Surgery: No Neurologic Surgery: No Orthopedic Surgery: No - Reproductive History Testicular Surgery: No - Suicide/Smoking/Psychosocial Hx Smoking History: Current every day smoker Have you smoked in the past 12 months: Yes Number of Cigarettes Smoked Daily: 20 Cigars Per Day: 0 Information on smoking cessation initiated: No 'Breaking Loose' booklet given: 02/06/17 Hx Alcohol Use: Yes (Daily 2 pints vodka) Drug/Substance Use Hx: No Substance Use Type: Alcohol Hx Substance Use Treatment: Yes (07/[facility]) Review of Systems - Review of Systems Able to Perform ROS?: Yes Constitutional: No: Symptoms Reported HEENTM: No: Symptoms Reported Respiratory: No: Symptoms reported Cardiac (ROS): No: Symptoms Reported ABD/GI: No: Symptoms Reported : No: Symptoms Reported Musculoskeletal: No: Symptoms Reported Integumentary: No: Symptoms Reported Neurological: Yes: Tingling, Tremors Psychiatric: Yes: Depression Endocrine: No: Symptoms Reported All Other Systems: Reviewed and Negative *Physical Exam - Vital Signs Last Vital Signs Temp Pulse Resp BP Pulse Ox 98.4 F 122 H 18 127/94 98 03/06/17 22:28 03/06/17 22:28 03/06/17 22:28 03/06/17 22:28 03/06/17 22:28 - Physical Exam General Appearance: Yes: Alcohol on Breath HEENT: positive: EOMI, LILIYA Respiratory/Chest: positive: Lungs Clear, Normal Breath Sounds. negative: Chest Tender Cardiovascular: positive: Regular Rhythm, S1, S2, Tachycardia Gastrointestinal/Abdominal: positive: Normal Bowel Sounds, Flat, Soft. negative : Tender ED Treatment Course - LABORATORY CBC & Chemistry Diagram: 03/06/17 23:00 03/06/17 23:00 Medical Decision Making - Medical Decision Making 03/06/17 23:00 etoh level, basic labs banana bag, ativan for etoh withdrawal 03/06/17 23:01 EKG: Accelerated Junctional rhythm with fusion complexes incomplete right bundle branch block possible lateral infarct, age undetermined Inferior infarct, age undertermined 03/06/17 23:41 03/06/17 23:52 [facility] called. Confirmed they have a bed for the patient. 03/06/17 23:58 PAtient d/c to [facility] will be taken to security *DC/Admit/Observation/Transfer Diagnosis at time of Disposition: Alcohol dependence, episodic drinking behavior, Alcohol dependence with uncomplicated withdrawal - Discharge Dispostion Disposition: HOME Admit: No - Referrals - Patient Instructions Printed Discharge Instructions: DI for Alcohol Abuse Additional Instructions: Good luck with your rehab at [facility]. Come back to the ER for any new, worsening or concerning symptoms unmanageable at the facility. - Post Discharge Activity
[2017-03-06 23:11] VITALS: BP 127/94; PULSE 122; TEMP 98.4; BMI 27.7
[2017-03-06 23:11] LABS: BASO % 0.6 % (0-2.0); EOS % 0.3 % (0-4.5); HEMATOCRIT 44.3 % (35.4-49); LYMPH % 23.1 % (8-40); MCH 30.8 pg (25.7-33.7); MCHC 33.9 g/dl (32.0-35.9); MEAN CELL VOLUME 90.9 fl (80-96); MEAN PLT VOLUME 7.6 fl (7.5-11.1); MONO % 5.9 % (3.8-10.2); NEUT % 70.1 % (42.8-82.8); PLATELET COUNT 218 K/MM3 (134-434); RBC 4.88 M/mm3 (4.00-5.60); RDW 15.2 % (11.9-15.9); WHITE BLOOD COUNT 7.5 K/mm3 (4.0-10.0)
[2017-03-06 23:42] LABS: ALBUMIN 3.4 g/dl (3.4-5.0); ALK PHOS 100 U/L (45-117); ANION GAP 14 (8-16); BILIRUBIN,TOTAL 0.5 mg/dL (0.2-1.0); BLOOD UREA NITROGEN 14 mg/dL (7-18); CALCIUM 8.5 mg/dL (8.5-10.1); CHLORIDE 108 mmol/L (98-107); CO2 21 mmol/L (21-32); CREATININE 0.9 mg/dL (0.7-1.3); GLUCOSE,RANDOM 113 mg/dL (74-106); POTASSIUM 3.2 mmol/L (3.5-5.1); SGOT/AST 20 U/L (15-37); SGPT/ALT 19 U/L (12-78); SODIUM 143 mmol/L (136-145)
--- NOTE | 2017-03-07 10:37 | EKG ---
Test Reason : Blood Pressure : / mmHG Vent. Rate : 117 BPM Atrial Rate : 058 BPM P-R Int : 000 ms QRS Dur : 112 ms QT Int : 346 ms P-R-T Axes : 000 -25 007 degrees QTc Int : 482 ms NORMAL SINUS RHYTHM FREQUENT PREMATURE VENTRICULAR BEATS INCOMPLETE RIGHT BUNDLE BRANCH BLOCK INFERIOR INFARCT (CITED ON OR BEFORE 06-FEB-2017) ABNORMAL ECG WHEN COMPARED WITH ECG OF 06-FEB-2017 17:59, FREQUENT PREMATURE VENTRICULAR COMPLEXES ARE NOW SEEN Confirmed by TAO PRATHER MD ([id number]) on 03/07/2017 10:36:50 AM Referred By: Confirmed By:TAO PRATHER MD
== END 2017-03-07 00:04 | disposition home or self-care (01) ==
LOC: JER 21:46
PROC: 3E033GC Introduction of Other Therapeutic Substance into Peripheral Vein, Percutaneous Approach (ICD-10-PCS; principal; 2017-03-06)
PROC: 3E033NZ Introduction of Analgesics, Hypnotics, Sedatives into Peripheral Vein, Percutaneous Approach (ICD-10-PCS; 2017-03-06)
DX: F10.230 Alcohol dependence with withdrawal, uncomplicated (principal); I10 Essential (primary) hypertension; E78.00 Pure hypercholesterolemia, unspecified; Z86.73 Personal history of transient ischemic attack (TIA), and cerebral infarction without residual deficits; Z79.01 Long term (current) use of anticoagulants; F17.210 Nicotine dependence, cigarettes, uncomplicated
CPT/HCPCS: 36415; 80053; 80307; 85025; 93005; 93010; 99283-25

== ENCOUNTER 2017-03-07 00:50 | Inpatient (IN) | payer OTHER ==
--- NOTE | 2017-03-07 01:11 | HP ---
CIWA Score - CIWA Score Nausea/Vomitin Muscle Tremors: 5 Anxiety: 4-Mod. Anxious/Guarded Agitation: 4-Moderately Restless Paroxysmal Sweats: 4-Forehead w/Sweat Beads Orientation: 1-Uncertain about Date Tacttile Disturbances: 3-Moderate Itch/Numb/Burn Auditory Disturbances: 0-None Visual Disturbances: 0-None Headache: 3-Moderate CIWA-Ar Total Score: 27 Admission ROS BHS - HPI Chief Complaint: seeking detox and rehab for alcohoilsm and withdrawal sx's. Allergies/Adverse Reactions: Allergies Allergy/AdvReac Type Severity Reaction Status Date / Time No Known Allergies Allergy Verified 03/06/17 22:27 History of Present Illness: 57 Y.O. MALE WITH ALCOHOLISM HERE FOR DETOX. CLIENT WAS SENT BY [facility] AFTER PRESENTING THERE FOR ALCOHOL INTOXICATION. CLIENT IS KNOWN TO THIS PROGRAM. LAST HERE 3 WEEKS AGO BUT HAS RELAPSED SINCE DC. REPORTS LONGEST CLEAN TIME 8 MONTHS. REPORTS PMHX OF HTN, HLD,AND PULMONARY EMBOLISM. CLIENT REPORTS HE IS NON COMPLAINT WITH HIS MED MGMT Exam Limitations: No Limitations - Ebola screening Have you traveled outside of the country in the last 21 days: No Have you had contact with anyone from an Ebola affected area: No Have you been sick,other than usual withdrawal symptoms: No Do you have a fever: No - Review of Systems Constitutional: Chills, Loss of Appetite, Malaise, Night Sweats, Changes in sleep EENT: reports: Dental Problems (MISSING TEETH) Respiratory: reports: No Symptoms reported Cardiac: reports: No Symptoms Reported GI: reports: Nausea, Poor Appetite, Poor Fluid Intake, Vomiting, Abdominal cramping : reports: No Symptoms Reported Musculoskeletal: reports: Back Pain, Joint Pain Integumentary: reports: Sweating Neuro: reports: Seizure (R/T ETOH WITHDRAWAL) Endocrine: reports: No Symptoms Reported Hematology: reports: Blood Clots (07/2016 DX WITH PULMONARY EMBOLISM NON COMPLAINT WITH PE), Easy Bleeding Psychiatric: reports: Anxious, Depressed Other Systems: Reviewed and Negative Patient History - Patient Medical History Hx Anemia: No Hx Asthma: No Hx Chronic Obstructive Pulmonary Disease (COPD): No Hx Cancer: No Hx Cardiac Disorders: No Hx Congestive Heart Failure: No Hx Hypertension: Yes (NON COMPLAITN WITH MEDS) Hx Hypercholesterolemia: Yes (non compliance) Hx Pacemaker: No HX Cerebrovascular Accident: Yes (Brain bleed 2017) Hx Seizures: Yes (etoh related) Hx Dementia: No Hx Diabetes: No Hx Gastrointestinal Disorders: Yes (GERD, GI BLEED, ? ULCERS) Hx Liver Disease: No Hx Genitourinary Disorders: No Hx Sexually Transmitted Disorders: No Hx Renal Disease (ESRD): No Hx Thyroid Disease: No Hx Human Immunodeficiency Virus (HIV): No Hx Hepatitis C: No Hx Depression: No (manic) Hx Suicide Attempt: Yes (jump off bridge 12 years) Hx Bipolar Disorder: Yes Hx Schizophrenia: No Other Medical History: PULMONARY EMBOLISM DX 07/2016 NON COMPLIANT WITH AC - Patient Surgical History Past Surgical History: Yes Hx Neurologic Surgery: No Hx Cataract Extraction: No Hx Cardiac Surgery: No Hx Lung Surgery: No Hx Breast Surgery: No Hx Breast Biopsy: No Hx Abdominal Surgery: Yes (s/p repair of right inguinal hernia repair ) Hx Appendectomy: No Hx Cholecystectomy: No Hx Genitourinary Surgery: No Hx Orthopedic Surgery: No Other Surgical History: arthroscopic surgery right knee for torn meniscus 20 years ago Anesthesia Reaction: No - PPD History Previous Implant?: Yes Documented Results: Negative w/proof Implanted On Prior [facility] Admission?: Yes Date: 02/08/17 Results: 0 MM PPD to be Administered?: No - Smoking Cessation Smoking history: Current every day smoker Have you smoked in the past 12 months: Yes Aproximately how many cigarettes per day: 20 Cigars Per Day: 0 Hx Chewing Tobacco Use: No Initiated information on smoking cessation: Yes 'Breaking Loose' booklet given: 03/07/17 - Substance & Tx. History Hx Alcohol Use: Yes Hx Substance Use: Yes Substance Use Type: Alcohol Hx Substance Use Treatment: Yes ([facility]) - Substances Abused VODKA Route: Oral Frequency: Daily Amount used: 2-4 PINT Age of first use: 14 Date of Last Use: 03/06/17 Family Disease History - Family Disease History Family Disease History: Diabetes: Father, Mother (alzheimer), Heart Disease: Father, Other: Grandparent (alcohol), Mother Admission Physical Exam [facility] - Physical General Appearance: Yes: Disheveled, Mild Distress, Alcohol on Breath, Intoxicated, Tremorous, Sweating, Anxious HEENTM: Yes: EOMI, Normocephalic, LILIYA, Pharynx Normal, Other (MISSING TEETH) Respiratory: Yes: Chest Non-Tender, Decreased Breath Sounds, No Respiratory Distress Neck: Yes: No masses,lesions,Nodules, Supple Breast: Yes: Breast Exam Deferred Cardiology: Yes: Regular Rhythm, S1, S2, Tachycardia Abdominal: Yes: Normal Bowel Sounds, Non Tender, Protuberent Genitourinary: Yes: Within Normal Limits Back: Yes: Normal Inspection Musculoskeletal: Yes: full range of Motion, Gait Steady Extremities: Yes: Normal Range of Motion, Non-Tender, Tremors Neurological: Yes: Alert, Motor Strength 5/5 Integumentary: Yes: Warm, Moist Lymphatic: Yes: Within Normal Limits - Diagnostic (1) Alcohol dependence with uncomplicated withdrawal Current Visit: No Status: Chronic (2) Essential hypertension Current Visit: No Status: Chronic (3) Gastroesophageal reflux disease Current Visit: No Status: Chronic (4) Hypercholesterolemia Current Visit: No Status: Chronic (5) Neuropathy Current Visit: No Status: Chronic (6) Nicotine dependence Current Visit: No Status: Chronic Qualifiers: Nicotine product type: cigarettes Substance use status: in withdrawal Qualified Code(s): F17.213 - Nicotine dependence, cigarettes, with withdrawal (7) Seizure due to alcohol withdrawal Current Visit: No Status: Chronic Qualifiers: Complication of substance-induced condition: with unspecified complication Qualified Code(s): F10.239 - Alcohol dependence with withdrawal, unspecified; R56.9 - Unspecified convulsions; R56.9 - Unspecified convulsions; R56.9 - Unspecified convulsions; R56.9 - Unspecified convulsions (8) Pulmonary embolism Current Visit: No Status: Suspected Qualifiers: Pulmonary embolism type: other Chronicity: chronic Cleared for Admission [facility] - Detox or Rehab [facility] Level of Care: Medically Managed Detox Regimen/Protocol: Librium [facility] Breath Alcohol Content Breath Alcohol Content: 0.078 Vital Signs - Vital Signs Vital Signs Refused: Yes Temperature: 97.7 F Temperature Source: Oral Pulse Rate: 113 Respiratory Rate: 22 Blood Pressure: 145/78 BP Location: Left Arm Blood Pressure Position: Sitting - Height Height: 6 ft 2 in - Weight Weight: 97.976 kg Weight Measurement Method: Stated by Patient Body Mass Index (BMI): 27.7 - Bowel Function Bowel Movement: No Urine Drug Screen - Test Device Lot Number: [id number] Expiration Date: 11/20/18 - Results Drug Screen Negative: No Urine Drug Screen Results: BZO-Benzodiazepines (GIVEN ATIVAN WHILE AT [facility])
[2017-03-07 01:18] VITALS: BMI 27.7
[2017-03-07] MEDS ORDERED: P-EPHED 60MG/TRIPROLIDI 2.5MG TABLET PO PRN (01:21)
[2017-03-07] MEDS ORDERED: NICOTINE POLACRILEX 2 MG GUM BC PRN (01:21)
[2017-03-07] MEDS ORDERED: MAGNESIUM CITRATE 300 ML BOTTLE PO PRN (01:21)
[2017-03-07] MEDS ORDERED: ACETAMINOPHEN 325 MG TABLET (FP) PO PRN (01:21)
[2017-03-07] MEDS ORDERED: IBUPROFEN 400 MG TABLET (FP) PO PRN (01:21)
[2017-03-07] MEDS ORDERED: MAG HYDROX/AL HYDROX/SIMETH 30 ML UNIT-DOSE CUP PO PRN (01:21)
[2017-03-07] MEDS ORDERED: MENTHOL/PHENOL 1 EACH UD MM PRN (01:21)
[2017-03-07] MEDS ORDERED: guaiFENesin/D-METHORPHAN HB 10 ML UNIT-DOSE CUPS PO PRN (01:21)
[2017-03-07] MEDS ORDERED: MAGNESIUM HYDROX 2400MG/30ML ORAL SUSPENSION 30 ML CUP PO PRN (01:21)
[2017-03-07] MEDS: chlordiazePOXIDE HCL 25 MG CAPSULE PO PRN (02:09)
[2017-03-07] MEDS: chlordiazePOXIDE HCL 25 MG CAPSULE PO SCH ×4 (05:33→22:02)
[2017-03-07 10:10] LABS: INR 0.96 (0.82-1.09); PROTHROMBIN TIME (PATIENT) 10.8 SEC (9.98-11.88)
[2017-03-07] MEDS: NICOTINE 21 MG/24 HOURS TOPICAL PATCH TD SCH (10:38)
--- NOTE | 2017-03-07 10:38 | EKG ---
Test Reason : Blood Pressure : / mmHG Vent. Rate : 108 BPM Atrial Rate : 108 BPM P-R Int : 162 ms QRS Dur : 118 ms QT Int : 370 ms P-R-T Axes : -02 -42 028 degrees QTc Int : 495 ms SINUS TACHYCARDIA LEFT AXIS DEVIATION LOW VOLTAGE QRS INCOMPLETE RIGHT BUNDLE BRANCH BLOCK INFERIOR INFARCT (CITED ON OR BEFORE 06-FEB-2017) CANNOT RULE OUT ANTERIOR INFARCT (CITED ON OR BEFORE 06-FEB-2017) ABNORMAL ECG WHEN COMPARED WITH ECG OF 06-MAR-2017 23:31, FREQUENT PREMATURE VENTRICULAR COMPLEXES ARE NO LONGER SEEN Confirmed by TAO PRATHER MD ([id number]) on 03/07/2017 10:38:00 AM Referred By: Confirmed By:TAO PRATHER MD
[2017-03-07] MEDS: ENALAPRIL MALEATE 10 MG TABLET (FP) PO SCH (10:39)
[2017-03-07] MEDS: PRENATAL VITAMINS W/ FOLIC ACID TABLET (FP) PO SCH (10:39)
--- NOTE | 2017-03-07 10:48 | CONSULT ---
[facility] Psychiatric Consult - Data Date of interview: 03/07/17 Admission source: Self-referred Identifying data: Mr Ortega is a 57 years old male, father of a 25 years old son, unemployed Substance Abuse History: Reports history of alcohol use. He started drinking alcohol at age 14, consumed 2-4 pints of vodka daily. Last Drank on 03/06/16 Medical History: Significant for hypertension, hyperlipdemia, GERD/ bleeding ulcer and a history of pulmonary emboli, cva(sudbdural hematoma) from a fall and surgery for right inguinal hernia repair and arthroscopic for torn meniscus right knee. Smokes cigarettes 1ppd Psychiatric History: Reports being diagnosed with ADHD at age 10 and Bipolar Disorder & OCD in his late 20's. Reports multiple psychiatric admissions to [facility](many times with 9 months stay once), [facility] in [place] and most recently to [facility] in 2017. Reports non-compliance with OPD care. Reports that he is on Wellbutrin XL 300 mg po daily, Lamictal 150 mg po BID and Trazadone 200 mg po HS. Claims that he last took medications when he was admitted to this facility last month. Record shows that he saw Dr No on 02/07/17 and only Wellbutrin XL 150 mg po daily and Trazadone 150 mg po HS were ordered. Lamictal was not given because he declined the drug to be given at a reduced dose. Reportedly, he has a history of suicidal attempt by trying to jump off a bridge. At present, reports feeling depressed and sleeping poorly Mental Status Exam - Mental Status Exam Alert and Oriented to: Time, Place, Person Cognitive Function: Fair Patient Appearance: Disheveled Mood: Depressed Affect: Appropriate Patient Behavior: Cooperative Speech Pattern: Clear Voice Loudness: Normal Thought Process: Intact, Goal Oriented Thought Disorder: Not Present Hallucinations: Denies Suicidal Ideation: Denies Homicidal Ideation: Denies Insight/Judgement: Poor Sleep: Poorly Appetite: Fair Muscle strength/Tone: Normal Gait/Station: Normal Psychiatric Findings - Problem List ([place] 1, 2,3) (1) Bipolar disorder Current Visit: No Status: Chronic Comment: Self-report.Non-adherent to prescribed medications. (2) OCD (obsessive compulsive disorder) Current Visit: Yes Status: Chronic - Initial Treatment Plan Initial Treatment Plan: 1) Start Wellbutrin XL 150 mg po daily and Trazadone 100 mg po HS. 2) Continue inpatient detoxification
[2017-03-07] MEDS ORDERED: FLU VACCINE QUAD 60 MCG/0.5 ML (MDV 17-18) IM ONE (12:00)
[2017-03-07] MEDS ORDERED: PNEUMOCOCCAL 23 VACCINE 0.5 ML VIAL IM ONE (12:00)
[2017-03-07] MEDS ORDERED: PNEUMOC 13-VAL CONJ-DIP CRM/PF 0.5 ML DISP.SYRIN IM ONE (12:00)
--- NOTE | 2017-03-07 14:40 | PN ---
[facility] Progress Note Note: PT WAS ADMITTED EARLIER TODAY. SLIGHT FATIGUE.INTERMITTENT SLEEP,TREMOR. ALERT O X3. Vital Signs Temperature 96.3 F L 03/07/17 09:54 Pulse Rate 89 03/07/17 09:54 Respiratory Rate 17 03/07/17 09:54 Blood Pressure 152/104 03/07/17 09:54 O2 Sat by Pulse Oximetry (%) Laboratory Last Values PT with INR 10.80 SEC (9.98-11.88) 03/07/17 07:30 INR 0.96 (0.82-1.09) 03/07/17 07:30 HIV 1&2 Antibody Screen Negative 03/07/17 07:30 HIV P24 Antigen Negative 03/07/17 07:30 OTHER LABS PENDING. CONTINUE DETOX. INCREASE PO FLUIDS.
[2017-03-07] MEDS: hydrOXYzine PAMOATE 50 MG CAPSULE (FP) PO PRN (21:22)
[2017-03-07] MEDS: traZODone HCL 100 MG TABLET (FP) PO SCH (21:22)
[2017-03-07] MEDS: THIAMINE HCL 100 MG TABLET (FP) PO SCH (21:22)
[2017-03-07] MEDS: ATORVASTATIN CA 10 MG TABLET (FP) PO SCH (21:22)
[2017-03-08] MEDS: chlordiazePOXIDE HCL 25 MG CAPSULE PO SCH ×4 (05:48→22:30)
[2017-03-08] MEDS: PRENATAL VITAMINS W/ FOLIC ACID TABLET (FP) PO SCH (10:37)
[2017-03-08] MEDS: NICOTINE 21 MG/24 HOURS TOPICAL PATCH TD SCH (10:38)
[2017-03-08] MEDS: ENALAPRIL MALEATE 10 MG TABLET (FP) PO SCH (10:38)
--- NOTE | 2017-03-08 11:17 | PN ---
[facility] CIWA - CIWA Score Nausea/Vomitin-No Nausea/No Vomiting Muscle Tremors: 4-Moderate,w/Arms Extend Anxiety: 4-Mod. Anxious/Guarded Agitation: 4-Moderately Restless Paroxysmal Sweats: 1-Minimal Palms Moist Orientation: 0-Oriented Tacttile Disturbances: 3-Moderate Itch/Numb/Burn Auditory Disturbances: 0-None Visual Disturbances: 0-None Headache: 0-None Present CIWA-Ar Total Score: 16 [facility] Progress Note (SOAP) Subjective: ANXIETY,SWEATS,DIARRHEA,TREMORS,NAUSEA,BODY ACHES. Objective: 03/08/17 11:13 Vital Signs Temperature 97.2 F L 03/08/17 10:13 Pulse Rate 83 03/08/17 10:13 Respiratory Rate 18 03/08/17 10:13 Blood Pressure 146/94 03/08/17 10:13 O2 Sat by Pulse Oximetry (%) Laboratory Last Values PT with INR 10.80 SEC (9.98-11.88) 03/07/17 07:30 INR 0.96 (0.82-1.09) 03/07/17 07:30 HIV 1&2 Antibody Screen Negative 03/07/17 07:30 HIV P24 Antigen Negative 03/07/17 07:30 PT HAD LABS DRAWN IN THE ER 03/06/17, IMMEDIATELY FOLLOWING ADMISSION TO DETOX ON 02/25/17. Assessment: 03/08/17 11:15 WITHDRAWAL SX Plan: CONTINUE DETOX
[2017-03-08 16:35] LABS: URINE APPEARANCE SLCLOUDY; URINE BILIRUBIN NEGATIVE (NEGATIVE); URINE BLOOD NEGATIVE (NEGATIVE); URINE COLOR DKYELLOW; URINE GLUCOSE (UA) NEGATIVE (NEGATIVE); URINE KETONE NEGATIVE (NEGATIVE); URINE LEUK ESTERASE NEGATIVE (NEGATIVE); URINE NITRITE NEGATIVE (NEGATIVE); URINE PROTEIN NEGATIVE (NEGATIVE); URINE UROBILINOGEN NEGATIVE mg/dL (0.2-1.0)
[2017-03-08] MEDS: chlordiazePOXIDE HCL 25 MG CAPSULE PO PRN (18:42)
[2017-03-08] MEDS: LOPERAMIDE HCL 2 MG CAPSULE PO PRN (20:03)
[2017-03-08] MEDS: ATORVASTATIN CA 10 MG TABLET (FP) PO SCH (22:30)
[2017-03-08] MEDS: traZODone HCL 100 MG TABLET (FP) PO SCH (22:30)
[2017-03-08] MEDS: THIAMINE HCL 100 MG TABLET (FP) PO SCH (22:31)
[2017-03-09] MEDS ORDERED: TRIMETHOBENZAMIDE HCL 200MG/2ML INJ IM ONE (00:02)
[2017-03-09] MEDS: chlordiazePOXIDE HCL 25 MG CAPSULE PO PRN ×2 (03:27→10:49)
[2017-03-09] MEDS: hydrOXYzine PAMOATE 50 MG CAPSULE (FP) PO PRN (03:27)
[2017-03-09] MEDS: LOPERAMIDE HCL 2 MG CAPSULE PO PRN ×2 (03:27→22:54)
[2017-03-09] MEDS: chlordiazePOXIDE 5 MG CAPSULE PO SCH ×4 (05:20→22:54)
[2017-03-09] MEDS ORDERED: WARFARIN NA 3 MG TABLET PO ONE (10:00)
[2017-03-09] MEDS ORDERED: WARFARIN NA 3 MG TABLET PO SCH (10:00)
[2017-03-09] MEDS ORDERED: DIPHENOXYLATE 2.5/ATROPINE.025 1 COMBO TABLET PO ONE (10:42)
[2017-03-09] MEDS: ENALAPRIL MALEATE 10 MG TABLET (FP) PO SCH (10:49)
[2017-03-09] MEDS: NICOTINE 21 MG/24 HOURS TOPICAL PATCH TD SCH (10:49)
[2017-03-09] MEDS: PRENATAL VITAMINS W/ FOLIC ACID TABLET (FP) PO SCH (10:49)
--- NOTE | 2017-03-09 12:16 | PN ---
[facility] CIWA - CIWA Score Nausea/Vomitin-No Nausea/No Vomiting Muscle Tremors: 4-Moderate,w/Arms Extend Anxiety: 4-Mod. Anxious/Guarded Agitation: 4-Moderately Restless Paroxysmal Sweats: 1-Minimal Palms Moist Orientation: 0-Oriented Tacttile Disturbances: 3-Moderate Itch/Numb/Burn Auditory Disturbances: 0-None Visual Disturbances: 0-None Headache: 0-None Present CIWA-Ar Total Score: 16 S Progress Note (SOAP) Subjective: ANXIETY,SWEATS,TREMORS,IRRITABILITY,DIARRHEA,INTERMITTENT SLEEP. PT ON COUMADIN 3 MG DAILY WITH LAST DOSE IN 01/2017. PT IS VERY NONCOMPLIANT WITH HIS TREATMENT. DOES NOT SEE WHY TAKING IT AND WANTS TO GET OFF. EXPLAINED TO PT HE HAS TO FOLLOW UP WITH HIS PMD TO PLAN ON APPRORIATE STRATEGY SINCE WE ARE HERE TO DETOX HIM AND MAINTAIN HIM MEDICALLY WHILE DETOXING. Objective: 03/09/17 12:11 Vital Signs Temperature 98.3 F 03/09/17 09:18 Pulse Rate 109 H 03/09/17 09:18 Respiratory Rate 20 03/09/17 09:18 Blood Pressure 123/83 03/09/17 09:18 O2 Sat by Pulse Oximetry (%) Laboratory Last Values PT with INR 10.80 SEC (9.98-11.88) 03/07/17 07:30 INR 0.96 (0.82-1.09) 03/07/17 07:30 Urine Color Dkyellow 03/08/17 14:11 Urine Appearance Slcloudy 03/08/17 14:11 Urine pH 5.0 (5.0-8.0) 03/08/17 14:11 Ur Specific [place] 1.026 (1.001-1.035) 03/08/17 14:11 Urine Protein Negative (NEGATIVE) 03/08/17 14:11 Urine Glucose (UA) Negative (NEGATIVE) 03/08/17 14:11 Urine Ketones Negative (NEGATIVE) 03/08/17 14:11 Urine Blood Negative (NEGATIVE) 03/08/17 14:11 Urine Nitrite Negative (NEGATIVE) 03/08/17 14:11 Urine Bilirubin Negative (NEGATIVE) 03/08/17 14:11 Urine Urobilinogen Negative mg/dL (0.2-1.0) 03/08/17 14:11 Ur Leukocyte Esterase Negative (NEGATIVE) 03/08/17 14:11 HIV 1&2 Antibody Screen Negative 03/07/17 07:30 HIV P24 Antigen Negative 03/07/17 07:30 CBC WNL ON 03/07/17 K+ = 3.2 ON 03/06/17 BANANA BAG TREATMENT GIVEN IN ER 03/06/17 CMP AND PT/INR REPEATED TODAY. AWAITING RESULT. Assessment: 03/09/17 12:16 WITHDRAWAL SX Plan: CONTINUE DETOX
[2017-03-09 13:42] LABS: ANION GAP 6 (8-16); BILIRUBIN,TOTAL 0.6 mg/dL (0.2-1.0); BLOOD UREA NITROGEN 11 mg/dL (7-18); CALCIUM 8.5 mg/dL (8.5-10.1); CHLORIDE 108 mmol/L (98-107); CO2 29 mmol/L (21-32); GLUCOSE,RANDOM 111 mg/dL (74-106); POTASSIUM 3.1 mmol/L (3.5-5.1); SGOT/AST 11 U/L (15-37); SODIUM 143 mmol/L (136-145); TOT PROT 6.1 g/dl (6.4-8.2)
[2017-03-09 13:43] LABS: ALK PHOS 77 U/L (45-117); SGPT/ALT 11 U/L (12-78)
[2017-03-09 13:48] LABS: INR 0.9 (0.82-1.09); PROTHROMBIN TIME (PATIENT) 10.2 SEC (9.98-11.88)
[2017-03-09] MEDS ORDERED: chlordiazePOXIDE HCL 25 MG CAPSULE PO ONE (14:00)
[2017-03-09] MEDS ORDERED: ASPIRIN COATED 81 MG TABLET.EC PO ONE (17:15)
[2017-03-09] MEDS: POTASSIUM CHLORIDE TABS 20 MEQ TABLET.ER (FP) PO SCH (17:59)
[2017-03-09] MEDS: ATORVASTATIN CA 10 MG TABLET (FP) PO SCH (22:54)
[2017-03-09] MEDS: traZODone HCL 100 MG TABLET (FP) PO SCH (22:54)
[2017-03-09] MEDS: THIAMINE HCL 100 MG TABLET (FP) PO SCH (22:54)
[2017-03-10] MEDS: chlordiazePOXIDE HCL 10 MG CAPSULE PO SCH ×4 (05:20→22:19)
[2017-03-10] MEDS: POTASSIUM CHLORIDE TABS 20 MEQ TABLET.ER (FP) PO SCH (05:20)
[2017-03-10] MEDS ORDERED: DIPHENOXYLATE 2.5/ATROPINE.025 1 COMBO TABLET PO PRN (09:28)
[2017-03-10] MEDS ORDERED: DIPHENOXYLATE 2.5/ATROPINE.025 1 COMBO TABLET PO ONE (09:28)
[2017-03-10] MEDS: PRENATAL VITAMINS W/ FOLIC ACID TABLET (FP) PO SCH (10:46)
[2017-03-10] MEDS: ENALAPRIL MALEATE 10 MG TABLET (FP) PO SCH (10:47)
[2017-03-10] MEDS: NICOTINE 21 MG/24 HOURS TOPICAL PATCH TD SCH (10:47)
--- NOTE | 2017-03-10 11:21 | PN ---
[facility] Progress Note (SOAP) Subjective: PT STILL C/O WITHDRAWAL SX-MODERATE ANXIETY, TREMORS, DIARRHEA,FATIGUE. MOSTLY IN BED. ALERT O X 3. DENIES CP,HEADACHE OR DIZZINESS. Objective: 03/10/17 11:17 Vital Signs 03/10/17 03/10/17 03/10/17 03:30 06:03 09:11 Temperature 97.8 F 97.6 F Pulse Rate 74 98 H Respiratory 18 18 19 Rate Blood Pressure 123/78 122/82 Laboratory Last Values PT with INR 10.20 SEC (9.98-11.88) 03/09/17 10:00 INR 0.90 (0.82-1.09) 03/09/17 10:00 Sodium 143 mmol/L (136-145) 03/09/17 10:00 Potassium 3.1 mmol/L (3.5-5.1) L 03/09/17 10:00 Chloride 108 mmol/L (98-107) H 03/09/17 10:00 Carbon Dioxide 29 mmol/L (21-32) D 03/09/17 10:00 Anion Gap 6 (8-16) L 03/09/17 10:00 BUN 11 mg/dL (7-18) D 03/09/17 10:00 Creatinine 1.0 mg/dL (0.7-1.3) 03/09/17 10:00 Creat Clearance w eGFR > 60 (>60) 03/09/17 10:00 Random Glucose 111 mg/dL (74-106) H 03/09/17 10:00 Calcium 8.5 mg/dL (8.5-10.1) 03/09/17 10:00 Total Bilirubin 0.6 mg/dL (0.2-1.0) 03/09/17 10:00 AST 11 U/L (15-37) L D 03/09/17 10:00 ALT 11 U/L (12-78) L D 03/09/17 10:00 Alkaline Phosphatase 77 U/L (45-117) D 03/09/17 10:00 Total Protein 6.1 g/dl (6.4-8.2) L 03/09/17 10:00 Albumin 3.0 g/dl (3.4-5.0) L 03/09/17 10:00 Urine Color Dkyellow 03/08/17 14:11 Urine Appearance Slcloudy 03/08/17 14:11 Urine pH 5.0 (5.0-8.0) 03/08/17 14:11 Ur Specific [place] 1.026 (1.001-1.035) 03/08/17 14:11 Urine Protein Negative (NEGATIVE) 03/08/17 14:11 Urine Glucose (UA) Negative (NEGATIVE) 03/08/17 14:11 Urine Ketones Negative (NEGATIVE) 03/08/17 14:11 Urine Blood Negative (NEGATIVE) 03/08/17 14:11 Urine Nitrite Negative (NEGATIVE) 03/08/17 14:11 Urine Bilirubin Negative (NEGATIVE) 03/08/17 14:11 Urine Urobilinogen Negative mg/dL (0.2-1.0) 03/08/17 14:11 Ur Leukocyte Esterase Negative (NEGATIVE) 03/08/17 14:11 HIV 1&2 Antibody Screen Negative 03/07/17 07:30 HIV P24 Antigen Negative 03/07/17 07:30 LABS NOTED. INR = 0.90 K+ =3.1 ON 03/09/17 Assessment: 03/10/17 11:18 WITHDRAWAL SX HYPOKALEMIA Plan: CONTINUE DETOX D/C IMODIUM LOMOTIL DIRECTED WARFARIN RESTARTED KCL LIQUID 20 MEQ PO BID DIRECTED MONITOR PATIENT'S STATUS. RE-EVALUATE IN THE MORNING
[2017-03-10] MEDS ORDERED: chlordiazePOXIDE HCL 25 MG CAPSULE PO ONE (14:00)
[2017-03-10] MEDS: POTASSIUM CHLORIDE ORAL LIQUID 20 MEQ/15 ML PO SCH (17:44)
[2017-03-10] MEDS ORDERED: WARFARIN NA 3 MG TABLET PO SCH (18:00)
[2017-03-10] MEDS: ATORVASTATIN CA 10 MG TABLET (FP) PO SCH (22:19)
[2017-03-10] MEDS: THIAMINE HCL 100 MG TABLET (FP) PO SCH (22:19)
[2017-03-10] MEDS: traZODone HCL 100 MG TABLET (FP) PO SCH (22:19)
[2017-03-11] MEDS: POTASSIUM CHLORIDE ORAL LIQUID 20 MEQ/15 ML PO SCH (06:20)
[2017-03-11] MEDS: NICOTINE 21 MG/24 HOURS TOPICAL PATCH TD SCH (10:46)
[2017-03-11] MEDS: ENALAPRIL MALEATE 10 MG TABLET (FP) PO SCH (10:46)
[2017-03-11] MEDS: PRENATAL VITAMINS W/ FOLIC ACID TABLET (FP) PO SCH (10:46)
--- NOTE | 2017-03-11 12:15 | DS ---
[facility] Detox Discharge Summary Admission Date: 03/07/17 Discharge Date: 03/11/17 - History Present History: Alcohol Dependence Additional Comments: DETOX COMPLETED. ALERT O X 3. PT READY FOR NEXT LEVEL OF CARE-REHAB. PT REPORTS HIS PRIMARY CARE PROVIDER DR NIMCO NAVARRO AT [place], [place]. PT HAS BEEN INSTRUCTED TO FOLLOW UP WITH HIS PCP RE:BLOOD MONITORING FOR WARFARIN MANAGEMENT. PT STATES CURRENT USE BESIDES PAST LAST ADMISSION HERE IN JANUARY AND REPORTS [facility] HAS NEVER DISCONTINUED IT WHEN ASKED BY THIS ASSOCIATE PROFESSOR OF KINESIOLOGY. Pertinent Past History: SEE DX BELOW - Physical Exam Results Vital Signs: Vital Signs Temperature 98.0 F 03/11/17 09:44 Pulse Rate 88 03/11/17 09:44 Respiratory Rate 20 03/11/17 09:44 Blood Pressure 115/87 03/11/17 09:44 O2 Sat by Pulse Oximetry (%) Pertinent Admission Physical Exam Findings: WITHDRAWAL SX Laboratory Last Values PT with INR 10.20 SEC (9.98-11.88) 03/09/17 10:00 INR 0.90 (0.82-1.09) 03/09/17 10:00 Sodium 143 mmol/L (136-145) 03/09/17 10:00 Potassium 3.1 mmol/L (3.5-5.1) L 03/09/17 10:00 Chloride 108 mmol/L (98-107) H 03/09/17 10:00 Carbon Dioxide 29 mmol/L (21-32) D 03/09/17 10:00 Anion Gap 6 (8-16) L 03/09/17 10:00 BUN 11 mg/dL (7-18) D 03/09/17 10:00 Creatinine 1.0 mg/dL (0.7-1.3) 03/09/17 10:00 Creat Clearance w eGFR > 60 (>60) 03/09/17 10:00 Random Glucose 111 mg/dL (74-106) H 03/09/17 10:00 Calcium 8.5 mg/dL (8.5-10.1) 03/09/17 10:00 Total Bilirubin 0.6 mg/dL (0.2-1.0) 03/09/17 10:00 AST 11 U/L (15-37) L D 03/09/17 10:00 ALT 11 U/L (12-78) L D 03/09/17 10:00 Alkaline Phosphatase 77 U/L (45-117) D 03/09/17 10:00 Total Protein 6.1 g/dl (6.4-8.2) L 03/09/17 10:00 Albumin 3.0 g/dl (3.4-5.0) L 03/09/17 10:00 Urine Color Dkyellow 03/08/17 14:11 Urine Appearance Slcloudy 03/08/17 14:11 Urine pH 5.0 (5.0-8.0) 03/08/17 14:11 Ur Specific [place] 1.026 (1.001-1.035) 03/08/17 14:11 Urine Protein Negative (NEGATIVE) 03/08/17 14:11 Urine Glucose (UA) Negative (NEGATIVE) 03/08/17 14:11 Urine Ketones Negative (NEGATIVE) 03/08/17 14:11 Urine Blood Negative (NEGATIVE) 03/08/17 14:11 Urine Nitrite Negative (NEGATIVE) 03/08/17 14:11 Urine Bilirubin Negative (NEGATIVE) 03/08/17 14:11 Urine Urobilinogen Negative mg/dL (0.2-1.0) 03/08/17 14:11 Ur Leukocyte Esterase Negative (NEGATIVE) 03/08/17 14:11 HIV 1&2 Antibody Screen Negative 03/07/17 07:30 HIV P24 Antigen Negative 03/07/17 07:30 INR TO BE REPEATED ON 03/12/17 - Treatment Hospital Course: Detox Protocol Followed, Detoxed Safely, Responded well, Discharged Condition Good, Rehab Referral Accepted Patient has Accepted a Rehab Referral to: [facility] - Medication Discharge Medications: Ambulatory Orders Enalapril Maleate [Vasotec -] 20 mg PO DAILY 08/19/13 Pravastatin Sodium [Pravachol -] 20 mg PO HS 08/19/13 Bupropion HCl [Wellbutrin Xl -] 300 mg PO DAILY #30 tab.sr.24h 08/20/13 Lamotrigine [Lamotrigine -] 150 mg PO BID #60 tablet 08/20/13 Warfarin Na [Coumadin] 3 mg PO DAILY 02/06/17 Trazodone HCl 200 mg PO HS 03/07/17 - Diagnosis (1) Seizure Current Visit: Yes Status: Chronic (2) Alcohol dependence with uncomplicated withdrawal Current Visit: Yes Status: Acute (3) Essential hypertension Current Visit: Yes Status: Chronic (4) Gastroesophageal reflux disease Current Visit: Yes Status: Chronic (5) Hypercholesterolemia Current Visit: Yes Status: Chronic (6) Neuropathy Current Visit: Yes Status: Chronic (7) Nicotine dependence Current Visit: Yes Status: Chronic Qualifiers: Nicotine product type: cigarettes Substance use status: in withdrawal Qualified Code(s): F17.213 - Nicotine dependence, cigarettes, with withdrawal (8) Pulmonary embolism Current Visit: Yes Status: Suspected Qualifiers: Pulmonary embolism type: other Chronicity: chronic (9) History of warfarin therapy Current Visit: Yes Status: Chronic - AMA Did Patient Leave Against Medical Advice: No
[2017-03-11 13:58] VITALS: BP 115/86; PULSE 84; TEMP 97.6
== END 2017-03-11 01:55 | disposition other institution (70) | DRG 775 ==
LOC: YASAS 00:50 → Y3N 01:27
PROVIDERS: ADMIT Internal Medicine; ATTEND Internal Medicine
PROC: HZ2ZZZZ Detoxification Services for Substance Abuse Treatment (ICD-10-PCS; principal; 2017-03-07)
DX: F10.230 Alcohol dependence with withdrawal, uncomplicated (principal); F17.213 Nicotine dependence, cigarettes, with withdrawal; I10 Essential (primary) hypertension; K21.9 Gastro-esophageal reflux disease without esophagitis; E78.00 Pure hypercholesterolemia, unspecified; G62.9 Polyneuropathy, unspecified; F31.9 Bipolar disorder, unspecified; F42.9 Obsessive-compulsive disorder, unspecified; Z86.711 Personal history of pulmonary embolism; Z79.01 Long term (current) use of anticoagulants; Z86.73 Personal history of transient ischemic attack (TIA), and cerebral infarction without residual deficits; Z86.69 Personal history of other diseases of the nervous system and sense organs; Z91.5 Personal history of self-harm
CPT/HCPCS: 36415; 80053; 81003; 85610; 87389; 93005; 93010

== ENCOUNTER 2017-03-11 14:26 | Inpatient (IN) | payer OTHER ==
[2017-03-11] MEDS ORDERED: MAGNESIUM CITRATE 300 ML BOTTLE PO PRN (17:25)
[2017-03-11] MEDS ORDERED: MAG HYDROX/AL HYDROX/SIMETH 30 ML UNIT-DOSE CUP PO PRN (17:25)
[2017-03-11] MEDS ORDERED: LOPERAMIDE HCL 2 MG CAPSULE PO PRN (17:25)
[2017-03-11] MEDS ORDERED: guaiFENesin/D-METHORPHAN HB 10 ML UNIT-DOSE CUPS PO PRN (17:25)
[2017-03-11] MEDS ORDERED: P-EPHED 60MG/TRIPROLIDI 2.5MG TABLET PO PRN (17:25)
[2017-03-11] MEDS ORDERED: MENTHOL/PHENOL 1 EACH UD MM PRN (17:25)
[2017-03-11] MEDS ORDERED: MAGNESIUM HYDROX 2400MG/30ML ORAL SUSPENSION 30 ML CUP PO PRN (17:25)
--- NOTE | 2017-03-11 17:36 | HP ---
[facility] Rehab Assess/Revision - Admission History Admitted to Rehab from: [facility] Date of Admission to Rehab: 03/11/2017 - Vital signs Vital Signs: NOTED; STABLE. - Findings Detox History & Physical reviewed: Yes Concur with findings: Yes Comments/Additional Findings: PATIENT'S MEDICAL / MEDICATION HISTORY REVIWED PRIOR TO DISCHARGE FROM DETOX UNIT. PATIENT WAS DISCHARGED FROM DETOX UNIT TO BE TAKEN OVER TO REHAB UNIT IN STABLE MEDICAL CONDITION. PT/INR ORDERED FOR TOMORROW (03/12/2017) AM FOR EVALUATION OF EFFECT OF COUMADIN USE. Inpatient Rehab Admission - Initial Determination Are CD services needed?: Yes Free of communicable disease: Yes Not in need of hospitalization: Yes - Rehab Admission Criteria Previous failed treatment: Yes Comorbidities: Yes Patient is meeting Inpatient Rehab admission criteria:: Yes
[2017-03-11] MEDS: WARFARIN NA 3 MG TABLET PO SCH (18:00)
[2017-03-11] MEDS: traZODone HCL 100 MG TABLET (FP) PO SCH (22:17)
[2017-03-11] MEDS: THIAMINE HCL 100 MG TABLET (FP) PO SCH (22:17)
[2017-03-11] MEDS: ATORVASTATIN CA 10 MG TABLET (FP) PO SCH (22:17)
[2017-03-12 10:24] LABS: INR 1.03 (0.82-1.09); PROTHROMBIN TIME (PATIENT) 11.6 SEC (9.98-11.88)
[2017-03-12] MEDS: PRENATAL VITAMINS W/ FOLIC ACID TABLET (FP) PO SCH (10:31)
[2017-03-12] MEDS: NICOTINE 21 MG/24 HOURS TOPICAL PATCH TD SCH (10:31)
[2017-03-12] MEDS: ENALAPRIL MALEATE 10 MG TABLET (FP) PO SCH (10:31)
[2017-03-12] MEDS ORDERED: FLU VACCINE QUAD 60 MCG/0.5 ML (MDV 17-18) IM ONE (12:00)
[2017-03-12] MEDS: WARFARIN NA 3 MG TABLET PO SCH (17:04)
[2017-03-12] MEDS: THIAMINE HCL 100 MG TABLET (FP) PO SCH (21:42)
[2017-03-12] MEDS: traZODone HCL 100 MG TABLET (FP) PO SCH (21:42)
[2017-03-12] MEDS: ATORVASTATIN CA 10 MG TABLET (FP) PO SCH (21:42)
[2017-03-13] MEDS: hydrOXYzine PAMOATE 50 MG CAPSULE (FP) PO PRN (03:00)
[2017-03-13] MEDS: ACETAMINOPHEN 325 MG TABLET (FP) PO PRN (06:23)
[2017-03-13] MEDS: PRENATAL VITAMINS W/ FOLIC ACID TABLET (FP) PO SCH (10:11)
[2017-03-13] MEDS: NICOTINE 21 MG/24 HOURS TOPICAL PATCH TD SCH (10:12)
[2017-03-13] MEDS: ENALAPRIL MALEATE 10 MG TABLET (FP) PO SCH (10:12)
[2017-03-13] MEDS: WARFARIN NA 3 MG TABLET PO SCH (17:00)
[2017-03-13] MEDS: THIAMINE HCL 100 MG TABLET (FP) PO SCH (21:55)
[2017-03-13] MEDS: traZODone HCL 100 MG TABLET (FP) PO SCH (21:55)
[2017-03-13] MEDS: ATORVASTATIN CA 10 MG TABLET (FP) PO SCH (21:55)
--- NOTE | 2017-03-14 06:17 | HP ---
Psychiatrist Admission - Data Date of interview: 03/14/17 Admission source: 3N Identifying data: This is the first [facility] admission for this 57 years old male, father of a 25 years old son, unemployed with no source of income, homeless Medical History: Significant for hypertension, hyperlipdemia, GERD/ bleeding ulcer and a history of pulmonary emboli, cva(sudbdural hematoma) from a fall and surgery for right inguinal hernia repair and arthroscopic for torn meniscus right knee. Smokes cigarettes 1ppd Psychiatric History: Reports being diagnosed with ADHD at age 10 and Bipolar Disorder & OCD in his late 20's. Reports multiple psychiatric admissions to [facility](many times with 9 months stay once), [facility] in [place] and most recently to [facility] in 2017. Reports non-compliance with OPD care. Reports that he is on Wellbutrin XL 300 mg po daily, Lamictal 150 mg po BID and Trazadone 200 mg po HS. Claims that he last took medications when he was admitted to this facility last month. Record shows that he saw Dr No on 02/07/17 and only Wellbutrin XL 150 mg po daily and Trazadone 150 mg po HS were ordered. Lamictal was not given because he declined the drug to be given at a reduced dose. Reportedly, he has a history of suicidal attempt by trying to jump off a bridge. At present, reports feeling depressed and sleeping poorly Physical/Sexual Abuse/Trauma History: Denies history of verbal, physical or sexual abuse as well as DV relationship. Reports serving one year in the [employer] with honorable discharge Additional Comment: Reports multiple previous misdemeanor arrests. No probation at present Vital Signs: Vital Signs - 24 hr 03/13/17 03/14/17 03/14/17 06:45 00:30 03:30 Temperature 99.5 F Pulse Rate 107 H Respiratory 20 18 18 Rate Blood Pressure 107/68 Allergies/Adverse Reactions: Allergies Allergy/AdvReac Type Severity Reaction Status Date / Time No Known Allergies Allergy Verified 03/06/17 22:27 Date of last physical exam: 03/07/17 Concur with the findings of this exam: Yes - Substance Abuse/Tx History Hx Alcohol Use: Yes Hx Substance Use: No Substance Use Type: Alcohol (Started drinking alcohol at age 14, consumes 2-4 pints daily. Last drank on 03/06/17) Hx Substance Use Treatment: Yes (4 previous inpt detox admission) Mental Status Exam - Mental Status Exam Alert and Oriented to: Time, Place, Person Cognitive Function: Fair Patient Appearance: Disheveled Mood: Depressed Affect: Appropriate Patient Behavior: Cooperative Speech Pattern: Clear Voice Loudness: Normal Thought Process: Intact, Goal Oriented Hallucinations: Denies Suicidal Ideation: Denies Homicidal Ideation: Denies Insight/Judgement: Fair Sleep: Poorly Appetite: Good Muscle strength/Tone: Normal Gait/Station: Normal Psychiatric Findings - Problem List ([place] 1, 2,3) (1) Alcohol dependence Current Visit: No Status: Active (2) Nicotine dependence Current Visit: No Status: Chronic Qualifiers: Nicotine product type: cigarettes Substance use status: in withdrawal Qualified Code(s): F17.213 - Nicotine dependence, cigarettes, with withdrawal (3) Bipolar disorder Current Visit: No Status: Chronic Comment: Self-report.Non-adherent to prescribed medications. (4) OCD (obsessive compulsive disorder) Current Visit: No Status: Chronic (5) Substance induced mood disorder Current Visit: Yes Status: Acute (6) Substance-induced sleep disorder Current Visit: Yes Status: Acute (7) s/p arthroscopic surgery of right knee Current Visit: No Status: Active (8) Essential hypertension Current Visit: No Status: Chronic (9) Gastroesophageal reflux disease Current Visit: No Status: Chronic (10) Hypercholesterolemia Current Visit: No Status: Chronic (11) Neuropathy Current Visit: No Status: Chronic (12) Seizure due to alcohol withdrawal Current Visit: No Status: Chronic Qualifiers: Complication of substance-induced condition: with unspecified complication Qualified Code(s): F10.239 - Alcohol dependence with withdrawal, unspecified; R56.9 - Unspecified convulsions; R56.9 - Unspecified convulsions; R56.9 - Unspecified convulsions; R56.9 - Unspecified convulsions (13) s/p repair of right inguinal hernia Current Visit: No Status: Chronic - Initial Treatment Plan Initial Treatment Plan: 1) Start Wellbutrin XL 300 mg po daily, Lamictal 25 mg po daily, Trazadone 100 mg po HS and Belsomra 10 mg po HS prn for insomnia. 2) Monitor progress
[2017-03-14] MEDS: NICOTINE 21 MG/24 HOURS TOPICAL PATCH TD SCH (09:51)
[2017-03-14] MEDS: ENALAPRIL MALEATE 10 MG TABLET (FP) PO SCH (09:51)
[2017-03-14] MEDS: PRENATAL VITAMINS W/ FOLIC ACID TABLET (FP) PO SCH (09:51)
[2017-03-14] MEDS: WARFARIN NA 3 MG TABLET PO SCH (17:05)
[2017-03-14] MEDS: traZODone HCL 100 MG TABLET (FP) PO SCH (22:09)
[2017-03-14] MEDS: THIAMINE HCL 100 MG TABLET (FP) PO SCH (22:09)
[2017-03-14] MEDS: ATORVASTATIN CA 10 MG TABLET (FP) PO SCH (22:09)
[2017-03-14] MEDS: SUVOREXANT 10 MG TABLET PO PRN (22:09)
[2017-03-14] MEDS: NICOTINE POLACRILEX 2 MG GUM BUC PRN (22:09)
[2017-03-15] MEDS: lamoTRIgine 25 MG TABLET PO SCH (09:55)
[2017-03-15] MEDS: ENALAPRIL MALEATE 10 MG TABLET (FP) PO SCH (09:55)
[2017-03-15] MEDS: NICOTINE 21 MG/24 HOURS TOPICAL PATCH TD SCH (09:55)
[2017-03-15] MEDS: PRENATAL VITAMINS W/ FOLIC ACID TABLET (FP) PO SCH (09:55)
[2017-03-15] MEDS: WARFARIN NA 3 MG TABLET PO SCH (18:18)
[2017-03-15] MEDS: traZODone HCL 100 MG TABLET (FP) PO SCH (22:18)
[2017-03-15] MEDS: THIAMINE HCL 100 MG TABLET (FP) PO SCH (22:18)
[2017-03-15] MEDS: ATORVASTATIN CA 10 MG TABLET (FP) PO SCH (22:18)
[2017-03-15] MEDS: SUVOREXANT 10 MG TABLET PO PRN (22:19)
[2017-03-16] MEDS: ACETAMINOPHEN 325 MG TABLET (FP) PO PRN (03:31)
[2017-03-16] MEDS ORDERED: SUVOREXANT 10 MG TABLET PO PRN (09:51)
[2017-03-16] MEDS: ENALAPRIL MALEATE 10 MG TABLET (FP) PO SCH (09:52)
[2017-03-16] MEDS: PRENATAL VITAMINS W/ FOLIC ACID TABLET (FP) PO SCH (09:52)
[2017-03-16] MEDS: NICOTINE 21 MG/24 HOURS TOPICAL PATCH TD SCH (09:52)
[2017-03-16] MEDS: lamoTRIgine 25 MG TABLET PO SCH (09:53)
--- NOTE | 2017-03-16 10:06 | PN ---
Psychiatric Progress Note Vital Signs: Vital Signs Period Temp Pulse Resp BP Sys/Herrera Pulse Ox Last 24 Hr 98.2 F 95 20 111/76 Date of Session: 03/16/17 Chief Complaint:: Insomnia HPI: Patient addressing Alcohol Dependence comorbid with Nicotine Dpendence, Bipolar Disorder, OCD, Substance-induced Mood Disorder and Substance-Indduced Sleep Disorder ROS: HTN, HLD, GERD, Neuropathy, Alcohol-related seizure Current Medications: Active Medications Generic Name Dose Route Start Last Admin Trade Name Freq PRN Reason Stop Dose Admin Acetaminophen 650 mg 03/11/17 17:25 03/16/17 03:31 Tylenol - PO 650 mg Q4H PRN Administration FEVER Al Hydroxide/Mg Hydroxide 30 ml 03/11/17 17:25 Mylanta Oral Suspension - PO Q6H PRN DYSPEPSIA Atorvastatin Calcium 10 mg 03/11/17 22:00 03/15/17 22:18 Lipitor - PO 10 mg HS MARY Administration Bupropion HCl 300 mg 03/15/17 10:00 03/16/17 09:53 Wellbutrin Xl - PO 300 mg DAILY MARY Administration Enalapril Maleate 20 mg 03/12/17 10:00 03/16/17 09:52 Vasotec - PO 20 mg DAILY MARY Administration Eucalyptus/Menthol/Phenol/Sorbitol 1 each 03/11/17 17:25 Cepastat Lozenge - MM Q4H PRN SORE THROAT Guaifenesin 10 ml 03/11/17 17:25 Robitussin Dm - PO Q6H PRN COUGH Hydroxyzine Pamoate 50 mg 03/13/17 02:53 03/13/17 03:00 Vistaril - PO 50 mg Q4H PRN Administration FOR ITCHING Lamotrigine 25 mg 03/15/17 10:00 03/16/17 09:53 Lamictal - PO 25 mg DAILY MARY Administration Loperamide HCl 4 mg 03/11/17 17:25 Imodium - PO Q6H PRN DIARRHEA Magnesium Citrate 300 ml 03/11/17 17:25 Citroma - PO Q48H PRN CONSTIPATION Magnesium Hydroxide 30 ml 03/11/17 17:25 Milk Of Magnesia - PO DAILY PRN CONSTIPATION Nicotine 21 mg 03/12/17 10:00 03/16/17 09:52 Nicoderm Patch - TD 21 mg DAILY MARY Administration Nicotine Polacrilex 2 mg 03/11/17 17:25 03/14/17 22:09 Nicorette Gum - BUC 2 mg Q2H PRN Administration NICOTINE REPLACEMENT RX Multivit/Folic Acid/Iron 1 tab 03/12/17 10:00 03/16/17 09:52 Vitamins (Sjr) - PO 1 tab DAILY MARY Administration Pseudoephedrine/Triprolidine 1 combo 03/11/17 17:25 Actifed - PO TID PRN NASAL CONGESTION Thiamine HCl 100 mg 03/11/17 22:00 03/15/17 22:18 Vitamin B1 - PO 100 mg HS MARY Administration Trazodone HCl 100 mg 03/14/17 22:00 03/15/17 22:18 Desyrel - PO 100 mg HS MARY Administration Warfarin Sodium 3 mg 03/11/17 18:00 03/15/17 18:18 Coumadin - PO 3 mg DAILY@1800 MARY Administration Medication(s) Change(s): Increased Belsomra dosage to 15 mg po HS prn for insomnia Current Side Effect: No Lab tests ordered: No Lab tests reviewed: Yes Provider note:: Patient reports experiencing difficulty to sleep. Told blog writer that he has been sleeping poorly despite taking Trazadone 100 mg po HS and Belsomra 10 mg po HS prn for insmnia. Requests that dosage of Belsomra be increased Total face to face time:: 15 Mental Status Exam - Mental Status Exam Alert and Oriented to: Time, Place, Person Cognitive Function: Fair Patient Appearance: Well Groomed Mood: Hopeful, Euthymic Affect: Appropriate Patient Behavior: Cooperative Speech Pattern: Clear Voice Loudness: Normal Thought Process: Intact, Goal Oriented Thought Disorder: Not Present Hallucinations: Denies Suicidal Ideation: Denies Homicidal Ideation: Denies Insight/Judgement: Fair Sleep: Poorly Appetite: Good Muscle strength/Tone: Normal Gait/Station: Normal Psychiatric Treatment Plan - Problem List (1) Alcohol dependence Current Visit: No (2) Nicotine dependence Current Visit: No Qualifiers: Nicotine product type: cigarettes Substance use status: in withdrawal Qualified Code(s): F17.213 - Nicotine dependence, cigarettes, with withdrawal (3) Bipolar disorder Current Visit: No Comment: Self-report.Non-adherent to prescribed medications. (4) OCD (obsessive compulsive disorder) Current Visit: No (5) Substance induced mood disorder Current Visit: Yes (6) Substance-induced sleep disorder Current Visit: Yes (7) s/p arthroscopic surgery of right knee Current Visit: No (8) Essential hypertension Current Visit: No (9) Gastroesophageal reflux disease Current Visit: No (10) Hypercholesterolemia Current Visit: No (11) Neuropathy Current Visit: No (12) Seizure due to alcohol withdrawal Current Visit: No Qualifiers: Complication of substance-induced condition: with unspecified complication Qualified Code(s): F10.239 - Alcohol dependence with withdrawal, unspecified; R56.9 - Unspecified convulsions; R56.9 - Unspecified convulsions; R56.9 - Unspecified convulsions; R56.9 - Unspecified convulsions (13) s/p repair of right inguinal hernia Current Visit: No Initial treatment plan: 1) Discontinue Belsomra 10 mg po HS prn. 2) Start Belsomra 15 mg po HS prn for insomnia. 3) Monitor progress
[2017-03-16] MEDS: WARFARIN NA 3 MG TABLET PO SCH (17:14)
[2017-03-16] MEDS ORDERED: SUVOREXANT 5 MG TABLET ONE (21:49)
[2017-03-16] MEDS: traZODone HCL 100 MG TABLET (FP) PO SCH (21:50)
[2017-03-16] MEDS ORDERED: SUVOREXANT 10 MG TABLET PO ONE (21:50)
[2017-03-16] MEDS: NICOTINE POLACRILEX 2 MG GUM BUC PRN (21:50)
[2017-03-16] MEDS: ATORVASTATIN CA 10 MG TABLET (FP) PO SCH (21:50)
[2017-03-16] MEDS: THIAMINE HCL 100 MG TABLET (FP) PO SCH (21:51)
[2017-03-17] MEDS: lamoTRIgine 25 MG TABLET PO SCH (09:49)
[2017-03-17] MEDS: PRENATAL VITAMINS W/ FOLIC ACID TABLET (FP) PO SCH (09:49)
[2017-03-17] MEDS: ENALAPRIL MALEATE 10 MG TABLET (FP) PO SCH (09:49)
[2017-03-17] MEDS: NICOTINE 21 MG/24 HOURS TOPICAL PATCH TD SCH (09:49)
[2017-03-17 10:18] LABS: INR 1.13 (0.82-1.09); PROTHROMBIN TIME (PATIENT) 12.8 SEC (9.98-11.88)
[2017-03-17] MEDS: NICOTINE POLACRILEX 2 MG GUM BUC PRN ×2 (13:08→15:54)
[2017-03-17] MEDS: WARFARIN NA 2 MG TABLET (UD) PO SCH (17:47)
[2017-03-17] MEDS ORDERED: WARFARIN NA 3 MG TABLET PO SCH (18:00)
[2017-03-17] MEDS: THIAMINE HCL 100 MG TABLET (FP) PO SCH (21:55)
[2017-03-17] MEDS: ATORVASTATIN CA 10 MG TABLET (FP) PO SCH (21:55)
[2017-03-17] MEDS: traZODone HCL 100 MG TABLET (FP) PO SCH (21:56)
[2017-03-17] MEDS ORDERED: SUVOREXANT 5 MG TABLET ONE (23:28)
[2017-03-17] MEDS ORDERED: SUVOREXANT 10 MG TABLET PO ONE (23:29)
[2017-03-17] MEDS: SUVOREXANT 5 MG, SUVOREXANT 10 MG PO PRN (23:30)
[2017-03-18] MEDS: NICOTINE POLACRILEX 2 MG GUM BUC PRN ×3 (06:06→22:00)
[2017-03-18] MEDS: lamoTRIgine 25 MG TABLET PO SCH (10:02)
[2017-03-18] MEDS: PRENATAL VITAMINS W/ FOLIC ACID TABLET (FP) PO SCH (10:02)
[2017-03-18] MEDS: ENALAPRIL MALEATE 10 MG TABLET (FP) PO SCH (10:02)
[2017-03-18] MEDS: NICOTINE 21 MG/24 HOURS TOPICAL PATCH TD SCH (10:03)
[2017-03-18] MEDS ORDERED: POTASSIUM CHLORIDE TABS 20 MEQ TABLET.ER (FP) PO ONE (14:15)
[2017-03-18] MEDS ORDERED: TETRAHYDROZOLINE HCL 1 DROP DROPS OD PRN (16:18)
[2017-03-18] MEDS: WARFARIN NA 2 MG TABLET (UD) PO SCH (17:09)
[2017-03-18] MEDS ORDERED: SUVOREXANT 5 MG TABLET ONE (21:58)
[2017-03-18] MEDS ORDERED: SUVOREXANT 10 MG TABLET PO ONE (21:58)
[2017-03-18] MEDS: THIAMINE HCL 100 MG TABLET (FP) PO SCH (21:59)
[2017-03-18] MEDS: ATORVASTATIN CA 10 MG TABLET (FP) PO SCH (21:59)
[2017-03-18] MEDS: traZODone HCL 100 MG TABLET (FP) PO SCH (21:59)
[2017-03-18] MEDS: SUVOREXANT 5 MG, SUVOREXANT 10 MG PO PRN (22:00)
[2017-03-19] MEDS: NICOTINE 21 MG/24 HOURS TOPICAL PATCH TD SCH (09:55)
[2017-03-19] MEDS: ENALAPRIL MALEATE 10 MG TABLET (FP) PO SCH (09:55)
[2017-03-19] MEDS: lamoTRIgine 25 MG TABLET PO SCH (09:56)
[2017-03-19] MEDS: PRENATAL VITAMINS W/ FOLIC ACID TABLET (FP) PO SCH (09:56)
[2017-03-19 10:09] LABS: ALBUMIN 3.5 g/dl (3.4-5.0); ANION GAP 7 (8-16); BLOOD UREA NITROGEN 18 mg/dL (7-18); CALCIUM 8.7 mg/dL (8.5-10.1); CHLORIDE 104 mmol/L (98-107); CO2 29 mmol/L (21-32); GLUCOSE,RANDOM 105 mg/dL (74-106); POTASSIUM 3.7 mmol/L (3.5-5.1); SGOT/AST 7 U/L (15-37); SGPT/ALT 18 U/L (12-78); SODIUM 140 mmol/L (136-145)
[2017-03-19 10:10] LABS: ALK PHOS 77 U/L (45-117); BILIRUBIN,TOTAL 0.5 mg/dL (0.2-1.0); TOT PROT 6.9 g/dl (6.4-8.2)
[2017-03-19 10:11] LABS: INR 1.38 (0.82-1.09); PROTHROMBIN TIME (PATIENT) 15.6 SEC (9.98-11.88)
[2017-03-19] MEDS: NICOTINE POLACRILEX 2 MG GUM BUC PRN (14:26)
[2017-03-19] MEDS: WARFARIN NA 2 MG TABLET (UD) PO SCH (19:15)
[2017-03-19] MEDS: THIAMINE HCL 100 MG TABLET (FP) PO SCH (22:00)
[2017-03-19] MEDS: traZODone HCL 100 MG TABLET (FP) PO SCH (22:00)
[2017-03-19] MEDS: ATORVASTATIN CA 10 MG TABLET (FP) PO SCH (22:00)
[2017-03-20] MEDS: hydrOXYzine PAMOATE 50 MG CAPSULE (FP) PO PRN (01:32)
[2017-03-20] MEDS: ENALAPRIL MALEATE 10 MG TABLET (FP) PO SCH (10:09)
[2017-03-20] MEDS: PRENATAL VITAMINS W/ FOLIC ACID TABLET (FP) PO SCH (10:09)
[2017-03-20] MEDS: NICOTINE 21 MG/24 HOURS TOPICAL PATCH TD SCH (10:09)
[2017-03-20] MEDS: lamoTRIgine 25 MG TABLET PO SCH (10:09)
[2017-03-20] MEDS: NICOTINE POLACRILEX 2 MG GUM BUC PRN (15:13)
[2017-03-20] MEDS: WARFARIN NA 2 MG TABLET (UD) PO SCH (17:40)
[2017-03-20] MEDS: THIAMINE HCL 100 MG TABLET (FP) PO SCH (21:32)
[2017-03-20] MEDS: traZODone HCL 100 MG TABLET (FP) PO SCH (21:33)
[2017-03-20] MEDS: ATORVASTATIN CA 10 MG TABLET (FP) PO SCH (21:33)
[2017-03-20] MEDS: SUVOREXANT 10 MG TABLET PO PRN (21:33)
[2017-03-21] MEDS: PRENATAL VITAMINS W/ FOLIC ACID TABLET (FP) PO SCH (10:34)
[2017-03-21] MEDS: ENALAPRIL MALEATE 10 MG TABLET (FP) PO SCH (10:34)
[2017-03-21] MEDS: NICOTINE 21 MG/24 HOURS TOPICAL PATCH TD SCH (10:34)
[2017-03-21] MEDS: lamoTRIgine 25 MG TABLET PO SCH (10:34)
[2017-03-21] MEDS: WARFARIN NA 2 MG TABLET (UD) PO SCH (17:07)
[2017-03-21] MEDS: NICOTINE POLACRILEX 2 MG GUM BUC PRN ×2 (17:08→20:32)
[2017-03-21] MEDS: ATORVASTATIN CA 10 MG TABLET (FP) PO SCH (22:00)
[2017-03-21] MEDS: THIAMINE HCL 100 MG TABLET (FP) PO SCH (22:00)
[2017-03-21] MEDS: traZODone HCL 100 MG TABLET (FP) PO SCH (22:00)
[2017-03-21] MEDS: SUVOREXANT 10 MG TABLET PO PRN (22:00)
[2017-03-22] MEDS: PRENATAL VITAMINS W/ FOLIC ACID TABLET (FP) PO SCH (09:53)
[2017-03-22] MEDS: NICOTINE 21 MG/24 HOURS TOPICAL PATCH TD SCH (09:54)
[2017-03-22] MEDS: ENALAPRIL MALEATE 10 MG TABLET (FP) PO SCH (09:54)
[2017-03-22] MEDS: lamoTRIgine 25 MG TABLET PO SCH (09:54)
[2017-03-22] MEDS: WARFARIN NA 2 MG TABLET (UD) PO SCH (17:04)
[2017-03-22] MEDS: NICOTINE POLACRILEX 2 MG GUM BUC PRN ×2 (17:04→21:38)
[2017-03-22] MEDS: SUVOREXANT 10 MG TABLET PO PRN (21:38)
[2017-03-22] MEDS: THIAMINE HCL 100 MG TABLET (FP) PO SCH (21:38)
[2017-03-22] MEDS: ATORVASTATIN CA 10 MG TABLET (FP) PO SCH (21:38)
[2017-03-22] MEDS: traZODone HCL 100 MG TABLET (FP) PO SCH (21:38)
--- NOTE | 2017-03-23 09:32 | PN ---
Psychiatric Progress Note Vital Signs: Vital Signs Period Temp Pulse Resp BP Sys/Herrera Pulse Ox Last 24 Hr 98.3 F 84-91 18 96-110/67-69 Date of Session: 03/23/17 Chief Complaint:: Follow up HPI: Patient addressing Alcohol Dependence comorbid with Nicotine Dpendence, Bipolar Disorder, OCD, Substance-induced Mood Disorder and Substance-Indduced Sleep Disorder ROS: HTN, HLD, GERD, Neuropathy, Alcohol-related seizure Current Medications: Active Medications Generic Name Dose Route Start Last Admin Trade Name Freq PRN Reason Stop Dose Admin Acetaminophen 650 mg 03/11/17 17:25 03/16/17 03:31 Tylenol - PO 650 mg Q4H PRN Administration FEVER Al Hydroxide/Mg Hydroxide 30 ml 03/11/17 17:25 Mylanta Oral Suspension - PO Q6H PRN DYSPEPSIA Atorvastatin Calcium 10 mg 03/11/17 22:00 03/22/17 21:38 Lipitor - PO 10 mg HS MARY Administration Bupropion HCl 300 mg 03/15/17 10:00 03/22/17 09:53 Wellbutrin Xl - PO 300 mg DAILY MARY Administration Enalapril Maleate 20 mg 03/12/17 10:00 03/22/17 09:54 Vasotec - PO 20 mg DAILY MARY Administration Eucalyptus/Menthol/Phenol/Sorbitol 1 each 03/11/17 17:25 Cepastat Lozenge - MM Q4H PRN SORE THROAT Guaifenesin 10 ml 03/11/17 17:25 Robitussin Dm - PO Q6H PRN COUGH Hydroxyzine Pamoate 50 mg 03/13/17 02:53 03/20/17 01:32 Vistaril - PO 50 mg Q4H PRN Administration FOR ITCHING Lamotrigine 50 mg 03/23/17 10:00 Lamictal - PO DAILY MARY Loperamide HCl 4 mg 03/11/17 17:25 Imodium - PO Q6H PRN DIARRHEA Magnesium Citrate 300 ml 03/11/17 17:25 Citroma - PO Q48H PRN CONSTIPATION Magnesium Hydroxide 30 ml 03/11/17 17:25 Milk Of Magnesia - PO DAILY PRN CONSTIPATION Nicotine 21 mg 03/12/17 10:00 03/22/17 09:54 Nicoderm Patch - TD 21 mg DAILY MARY Administration Nicotine Polacrilex 2 mg 03/11/17 17:25 03/22/17 21:38 Nicorette Gum - BUC 2 mg Q2H PRN Administration NICOTINE REPLACEMENT RX Multivit/Folic Acid/Iron 1 tab 03/12/17 10:00 03/22/17 09:53 Vitamins (Sjr) - PO 1 tab DAILY MARY Administration Pseudoephedrine/Triprolidine 1 combo 03/11/17 17:25 Actifed - PO TID PRN NASAL CONGESTION Tetrahydrozoline HCl 1 drop 03/18/17 16:18 Visine - OD BID PRN DRY EYES Thiamine HCl 100 mg 03/11/17 22:00 03/22/17 21:38 Vitamin B1 - PO 100 mg HS MARY Administration Trazodone HCl 100 mg 03/14/17 22:00 03/22/17 21:38 Desyrel - PO 100 mg HS MARY Administration Warfarin Sodium 4 mg 03/17/17 18:00 03/22/17 17:04 Coumadin - PO 4 mg DAILY@1800 MARY Administration Medication(s) Change(s): Increase Lamictal to 50 mg po daily Current Side Effect: No Lab tests ordered: Yes Lab tests reviewed: Yes Provider note:: Patient requests that lamictal dosage be increased. He used to be on Lamictal 150 mg po BID. Since he has rudolph off it in awhile, he was restarted on 25 mg/day on 03/14/17. Lamictal dosage will progressively be incrased starting today. Total face to face time:: 15 Mental Status Exam - Mental Status Exam Alert and Oriented to: Time, Place, Person Cognitive Function: Fair Patient Appearance: Well Groomed Mood: Hopeful, Euthymic Affect: Appropriate Patient Behavior: Cooperative Speech Pattern: Clear Voice Loudness: Normal, Limited Variation Thought Process: Goal Oriented Thought Disorder: Not Present Hallucinations: Denies Suicidal Ideation: Denies Homicidal Ideation: Denies Insight/Judgement: Fair Sleep: Fair Appetite: Good Muscle strength/Tone: Normal Gait/Station: Normal Psychiatric Treatment Plan - Problem List (1) Alcohol dependence Current Visit: No (2) Nicotine dependence Current Visit: No Qualifiers: Nicotine product type: cigarettes Substance use status: in withdrawal Qualified Code(s): F17.213 - Nicotine dependence, cigarettes, with withdrawal (3) Bipolar disorder Current Visit: No Comment: Self-report.Non-adherent to prescribed medications. (4) OCD (obsessive compulsive disorder) Current Visit: No (5) Substance induced mood disorder Current Visit: Yes (6) Substance-induced sleep disorder Current Visit: Yes (7) s/p arthroscopic surgery of right knee Current Visit: No (8) Essential hypertension Current Visit: No (9) Gastroesophageal reflux disease Current Visit: No (10) Hypercholesterolemia Current Visit: No (11) Neuropathy Current Visit: No (12) Seizure due to alcohol withdrawal Current Visit: No Qualifiers: Complication of substance-induced condition: with unspecified complication Qualified Code(s): F10.239 - Alcohol dependence with withdrawal, unspecified; R56.9 - Unspecified convulsions; R56.9 - Unspecified convulsions; R56.9 - Unspecified convulsions; R56.9 - Unspecified convulsions (13) s/p repair of right inguinal hernia Current Visit: No Initial treatment plan: 1) Discontinue Lamictal 25 mg po daily. 2) Start Lamictal 50 mg po daily. 3) Monitor progress
[2017-03-23] MEDS: PRENATAL VITAMINS W/ FOLIC ACID TABLET (FP) PO SCH (10:00)
[2017-03-23] MEDS: NICOTINE 21 MG/24 HOURS TOPICAL PATCH TD SCH (10:00)
[2017-03-23] MEDS: lamoTRIgine 25 MG TABLET PO SCH (10:00)
[2017-03-23] MEDS: ENALAPRIL MALEATE 10 MG TABLET (FP) PO SCH (10:00)
[2017-03-23 10:21] LABS: INR 1.47 (0.82-1.09); PROTHROMBIN TIME (PATIENT) 16.6 SEC (9.98-11.88)
--- NOTE | 2017-03-23 16:16 | PN ---
S Progress Note Note: INR IS 1,47,ON COUMADIN 4 MGS PO DAILY,WILL INCREASE TO 5 MGS PO DAILY,REPEAT INR IN AM
--- NOTE | 2017-03-23 17:20 | PN ---
S Progress Note (SOAP) Subjective: feeling depressed, overwelmed with medical conditions, had pe earlier this year non comp;iant with coumadin, dose raised again because of inr today Objective: 03/23/17 17:17 Vital Signs - 24 hr 03/23/17 03/23/17 06:46 10:00 Temperature 98.3 F Pulse Rate 84 94 H Respiratory 18 18 Rate Blood Pressure 96/69 109/66 Laboratory Tests 03/12/17 03/17/17 03/19/17 08:20 07:00 07:40 PT with INR 11.60 12.80 H INR 1.03 1.13 Sodium 140 Potassium 3.7 Chloride 104 Carbon Dioxide 29 Anion Gap 7 L BUN 18 D Creatinine 1.0 Creat Clearance w eGFR > 60 Random Glucose 105 Calcium 8.7 Total Bilirubin 0.5 AST 7 L D ALT 18 D Alkaline Phosphatase 77 Total Protein 6.9 Albumin 3.5 Hepatitis C Antibody 03/19/17 03/19/17 03/23/17 07:40 08:00 07:00 PT with INR 15.60 H 16.60 H INR 1.38 H 1.47 H Sodium Potassium Chloride Carbon Dioxide Anion Gap BUN Creatinine Creat Clearance w eGFR Random Glucose Calcium Total Bilirubin AST ALT Alkaline Phosphatase Total Protein Albumin Hepatitis C Antibody <0.1 03/23/17 17:18 revewied labs with patietn, hcv, hiv neg Assessment: 03/23/17 17:19 increase warfarin 5mg check inr and adjust ass needed.
[2017-03-23] MEDS: WARFARIN NA 5 MG TABLET (UD) PO SCH (17:23)
[2017-03-23] MEDS: traZODone HCL 100 MG TABLET (FP) PO SCH (23:28)
[2017-03-23] MEDS: ATORVASTATIN CA 10 MG TABLET (FP) PO SCH (23:28)
[2017-03-23] MEDS: THIAMINE HCL 100 MG TABLET (FP) PO SCH (23:28)
[2017-03-23] MEDS: SUVOREXANT 10 MG TABLET PO PRN (23:31)
[2017-03-24] MEDS: lamoTRIgine 25 MG TABLET PO SCH (10:44)
[2017-03-24] MEDS: ENALAPRIL MALEATE 10 MG TABLET (FP) PO SCH (10:44)
[2017-03-24] MEDS: PRENATAL VITAMINS W/ FOLIC ACID TABLET (FP) PO SCH (10:44)
[2017-03-24] MEDS: NICOTINE 21 MG/24 HOURS TOPICAL PATCH TD SCH (10:44)
[2017-03-24] MEDS: WARFARIN NA 5 MG TABLET (UD) PO SCH (17:29)
[2017-03-24] MEDS: NICOTINE POLACRILEX 2 MG GUM BUC PRN ×2 (19:04→21:41)
[2017-03-24] MEDS: THIAMINE HCL 100 MG TABLET (FP) PO SCH (21:39)
[2017-03-24] MEDS: ATORVASTATIN CA 10 MG TABLET (FP) PO SCH (21:39)
[2017-03-24] MEDS: traZODone HCL 100 MG TABLET (FP) PO SCH (21:39)
[2017-03-25] MEDS: SUVOREXANT 10 MG TABLET PO PRN (00:18)
[2017-03-25] MEDS: NICOTINE 21 MG/24 HOURS TOPICAL PATCH TD SCH (10:41)
[2017-03-25] MEDS: ENALAPRIL MALEATE 10 MG TABLET (FP) PO SCH (10:41)
[2017-03-25] MEDS: PRENATAL VITAMINS W/ FOLIC ACID TABLET (FP) PO SCH (10:41)
[2017-03-25] MEDS: lamoTRIgine 25 MG TABLET PO SCH (10:41)
[2017-03-25] MEDS: WARFARIN NA 5 MG TABLET (UD) PO SCH (17:32)
[2017-03-25] MEDS: NICOTINE POLACRILEX 2 MG GUM BUC PRN ×2 (17:33→22:02)
[2017-03-25] MEDS: ATORVASTATIN CA 10 MG TABLET (FP) PO SCH (22:02)
[2017-03-25] MEDS: THIAMINE HCL 100 MG TABLET (FP) PO SCH (22:02)
[2017-03-25] MEDS: traZODone HCL 100 MG TABLET (FP) PO SCH (22:02)
[2017-03-26] MEDS: SUVOREXANT 10 MG TABLET PO PRN ×2 (01:03→21:36)
[2017-03-26] MEDS: NICOTINE POLACRILEX 2 MG GUM BUC PRN ×2 (06:27→17:03)
[2017-03-26] MEDS: lamoTRIgine 25 MG TABLET PO SCH (10:03)
[2017-03-26] MEDS: PRENATAL VITAMINS W/ FOLIC ACID TABLET (FP) PO SCH (10:03)
[2017-03-26] MEDS: ENALAPRIL MALEATE 10 MG TABLET (FP) PO SCH (10:04)
[2017-03-26] MEDS: NICOTINE 21 MG/24 HOURS TOPICAL PATCH TD SCH (10:04)
[2017-03-26] MEDS ORDERED: SUVOREXANT 10 MG TABLET PO PRN (10:12)
[2017-03-26] MEDS: WARFARIN NA 5 MG TABLET (UD) PO SCH (17:01)
[2017-03-26] MEDS: traZODone HCL 100 MG TABLET (FP) PO SCH (21:36)
[2017-03-26] MEDS: THIAMINE HCL 100 MG TABLET (FP) PO SCH (21:36)
[2017-03-26] MEDS: ATORVASTATIN CA 10 MG TABLET (FP) PO SCH (21:36)
[2017-03-27] MEDS: NICOTINE 21 MG/24 HOURS TOPICAL PATCH TD SCH (10:01)
[2017-03-27] MEDS: lamoTRIgine 25 MG TABLET PO SCH (10:01)
[2017-03-27] MEDS: PRENATAL VITAMINS W/ FOLIC ACID TABLET (FP) PO SCH (10:01)
[2017-03-27] MEDS: ENALAPRIL MALEATE 10 MG TABLET (FP) PO SCH (10:03)
--- NOTE | 2017-03-27 14:54 | PN ---
Psychiatric Progress Note Vital Signs: Vital Signs Period Temp Pulse Resp BP Sys/Herrera Pulse Ox Last 24 Hr 98 F 89-95 18-20 90-105/55-60 Date of Session: 03/27/17 Chief Complaint:: Discharge Note HPI: Patient addressing Alcohol Dependence comorbid with Nicotine Dependence, Bipolar Disorder, OCD, Substance-induced Mood Disorder and Substance-induced Sleep Disorder ROS: HTN, GERD, HLD, Neuropathy, Alcohol-related seizure Current Medications: Active Medications Generic Name Dose Route Start Last Admin Trade Name Freq PRN Reason Stop Dose Admin Acetaminophen 650 mg 03/11/17 17:25 03/16/17 03:31 Tylenol - PO 650 mg Q4H PRN Administration FEVER Al Hydroxide/Mg Hydroxide 30 ml 03/11/17 17:25 Mylanta Oral Suspension - PO Q6H PRN DYSPEPSIA Atorvastatin Calcium 10 mg 03/11/17 22:00 03/26/17 21:36 Lipitor - PO 10 mg HS MARY Administration Bupropion HCl 300 mg 03/15/17 10:00 03/27/17 10:01 Wellbutrin Xl - PO 300 mg DAILY MARY Administration Enalapril Maleate 20 mg 03/12/17 10:00 03/27/17 10:03 Vasotec - PO Not Given DAILY MARY Eucalyptus/Menthol/Phenol/Sorbitol 1 each 03/11/17 17:25 Cepastat Lozenge - MM Q4H PRN SORE THROAT Guaifenesin 10 ml 03/11/17 17:25 Robitussin Dm - PO Q6H PRN COUGH Hydroxyzine Pamoate 50 mg 03/13/17 02:53 03/20/17 01:32 Vistaril - PO 50 mg Q4H PRN Administration FOR ITCHING Lamotrigine 50 mg 03/23/17 10:00 03/27/17 10:01 Lamictal - PO 50 mg DAILY MARY Administration Loperamide HCl 4 mg 03/11/17 17:25 Imodium - PO Q6H PRN DIARRHEA Magnesium Citrate 300 ml 03/11/17 17:25 Citroma - PO Q48H PRN CONSTIPATION Magnesium Hydroxide 30 ml 03/11/17 17:25 Milk Of Magnesia - PO DAILY PRN CONSTIPATION Nicotine 21 mg 03/12/17 10:00 03/27/17 10:01 Nicoderm Patch - TD 21 mg DAILY MARY Administration Nicotine Polacrilex 2 mg 03/11/17 17:25 03/26/17 17:03 Nicorette Gum - BUC 2 mg Q2H PRN Administration NICOTINE REPLACEMENT RX Multivit/Folic Acid/Iron 1 tab 03/12/17 10:00 03/27/17 10:01 Vitamins (Sjr) - PO 1 tab DAILY MARY Administration Pseudoephedrine/Triprolidine 1 combo 03/11/17 17:25 Actifed - PO TID PRN NASAL CONGESTION Tetrahydrozoline HCl 1 drop 03/18/17 16:18 Visine - OD BID PRN DRY EYES Thiamine HCl 100 mg 03/11/17 22:00 03/26/17 21:36 Vitamin B1 - PO 100 mg HS MARY Administration Trazodone HCl 100 mg 03/14/17 22:00 03/26/17 21:36 Desyrel - PO 100 mg HS MARY Administration Warfarin Sodium 5 mg 03/23/17 18:00 03/26/17 17:01 Coumadin - PO 5 mg DAILY@1800 MARY Administration Current Side Effect: No Lab tests ordered: Yes Lab tests reviewed: Yes Provider note:: Patient will complete this program on 03/28/17. He has met his treatment goals and will continue to address his issues in AA/NA. Told fha underwriter that from his participation in this program, he has learned the importance of establishing a sober support network in order to maintain abstinence. He responded well to Wellbutrin XL 300 mg po daily, Lamictal 50 mg po daily an Trazadone 100 mg po HS. Scripts for 30 days suppply of medications will be electronically transmitted to [facility] at [address] [place] [address]. He is stable for discharge on 03/28/17 Total face to face time:: 35 Mental Status Exam - Mental Status Exam Alert and Oriented to: Time, Place, Person Patient Appearance: Well Groomed Mood: Hopeful, Euthymic Affect: Appropriate Patient Behavior: Cooperative Speech Pattern: Clear Voice Loudness: Normal, Limited Variation Thought Process: Goal Oriented Thought Disorder: Not Present Hallucinations: Denies Suicidal Ideation: Denies Homicidal Ideation: Denies Insight/Judgement: Fair Sleep: Fair Appetite: Good Muscle strength/Tone: Rigidity Gait/Station: Normal Psychiatric Treatment Plan - Problem List (1) Alcohol dependence Current Visit: No (2) Nicotine dependence Current Visit: No Qualifiers: Nicotine product type: cigarettes Substance use status: in withdrawal Qualified Code(s): F17.213 - Nicotine dependence, cigarettes, with withdrawal (3) Bipolar disorder Current Visit: No Comment: Self-report.Non-adherent to prescribed medications. (4) OCD (obsessive compulsive disorder) Current Visit: No (5) Substance induced mood disorder Current Visit: Yes (6) Substance-induced sleep disorder Current Visit: Yes (7) s/p arthroscopic surgery of right knee Current Visit: No (8) Essential hypertension Current Visit: No (9) Gastroesophageal reflux disease Current Visit: No (10) Hypercholesterolemia Current Visit: No (11) Neuropathy Current Visit: No (12) Seizure due to alcohol withdrawal Current Visit: No Qualifiers: Complication of substance-induced condition: with unspecified complication Qualified Code(s): F10.239 - Alcohol dependence with withdrawal, unspecified; R56.9 - Unspecified convulsions; R56.9 - Unspecified convulsions; R56.9 - Unspecified convulsions; R56.9 - Unspecified convulsions (13) s/p repair of right inguinal hernia Current Visit: No Initial treatment plan: Patient will be discharged tomorrow and plans to go to AA/NA to address his issues
[2017-03-27] MEDS: NICOTINE POLACRILEX 2 MG GUM BUC PRN (15:36)
[2017-03-27] MEDS: WARFARIN NA 5 MG TABLET (UD) PO SCH (17:02)
[2017-03-27 20:45] LABS: INR 1.82 (0.82-1.09); PROTHROMBIN TIME (PATIENT) 20.6 SEC (9.98-11.88)
[2017-03-27] MEDS: THIAMINE HCL 100 MG TABLET (FP) PO SCH (21:51)
[2017-03-27] MEDS: traZODone HCL 100 MG TABLET (FP) PO SCH (21:51)
[2017-03-27] MEDS: ATORVASTATIN CA 10 MG TABLET (FP) PO SCH (21:51)
[2017-03-28 06:56] VITALS: TEMP 97.4
[2017-03-28 10:12] VITALS: BP 144/84; PULSE 101
[2017-03-28] MEDS: PRENATAL VITAMINS W/ FOLIC ACID TABLET (FP) PO SCH (10:39)
[2017-03-28] MEDS: lamoTRIgine 25 MG TABLET PO SCH (10:40)
[2017-03-28] MEDS: NICOTINE 21 MG/24 HOURS TOPICAL PATCH TD SCH (10:40)
[2017-03-28] MEDS: ENALAPRIL MALEATE 10 MG TABLET (FP) PO SCH (10:40)
--- NOTE | 2017-03-28 11:39 | PN ---
[place] Progress Note Note: INR 1,82 ON COUMADIN 5 MGS PO DAILY,PATIENT WILL BE DISCHARGED ON COUMADIN 5 MGS PO DAILY FOR 10 DAYS,FOLLOW UP WITH FAMILY DOCTOR FOR COUMADIN REGULATION
== END 2017-03-28 11:50 | disposition home or self-care (01) | DRG 772 ==
LOC: YASAS 14:26 → Y3W 15:13
PROVIDERS: ADMIT Psychiatry & Neurology Psychiatry; ATTEND Psychiatry & Neurology Psychiatry
PROC: HZ42ZZZ Group Counseling for Substance Abuse Treatment, Cognitive-Behavioral (ICD-10-PCS; principal; 2017-03-11)
DX: F10.20 Alcohol dependence, uncomplicated (principal); F17.213 Nicotine dependence, cigarettes, with withdrawal; F31.9 Bipolar disorder, unspecified; F42.9 Obsessive-compulsive disorder, unspecified; F19.24 Other psychoactive substance dependence with psychoactive substance-induced mood disorder; F19.282 Other psychoactive substance dependence with psychoactive substance-induced sleep disorder; I10 Essential (primary) hypertension; K21.9 Gastro-esophageal reflux disease without esophagitis; E78.00 Pure hypercholesterolemia, unspecified; G62.9 Polyneuropathy, unspecified; G40.509 Epileptic seizures related to external causes, not intractable, without status epilepticus
CPT/HCPCS: 36415; 80053; 85610; 86803; 90688

== ENCOUNTER 2017-08-01 00:25 | Emergency (ER) | payer SELFPAY ==
[2017-08-01 01:15] VITALS: BP 147/86; PULSE 119; TEMP 98.2; BMI 27.7
--- NOTE | 2017-08-01 02:26 | PDOC ---
History of Present Illness - General History Source: Patient Exam Limitations: No Limitations - History of Present Illness Initial Comments: 08/01/17 05:49 The patient is a 57 year old male, with a significant past medical history of alcoholism and HTN, who presents to the emergency department with, intoxication. As per patient, he is intoxicated and wants rehabilitation. His last time at rehab was a few months ago. He is currently homeless and reports that he wants to change. The patient reports a tremor of his right hand. He denies any recent fevers, chills, headache or dizziness. He denies any recent nausea, vomit, diarrhea or constipation. He denies any recent chest pain or shortness of breath. He denies any recent dysuria, frequency, urgency or hematuria. Allergies: NKA Past surgical history: None reported. Social History: Alcoholic. Nonsmoker. Denies recreational drug use. <Luanne Louise - Last Filed: 08/01/17 05:49> <Nita Ybarra - Last Filed: 08/01/17 06:17> - General Chief Complaint: Alcohol intoxication Stated Complaint: INTOX Time Seen by Provider: 08/01/17 02:22 Past History <Luanne Louise - Last Filed: 08/01/17 05:49> - Past Medical History Anemia: No Asthma: No Cancer: No Cardiac Disorders: No CVA: Yes (Brain bleed 2017) COPD: No CHF: No Dementia: No Diabetes: No GI Disorders: No Disorders: No HTN: Yes Hypercholesterolemia: Yes (non compliance) Kidney Stones: No Liver Disease: No Seizures: Yes Thyroid Disease: No - Surgical History Abdominal Surgery: Yes (s/p repair of right inguinal hernia repair ) Appendectomy: No Cardiac Surgery: No Cholecystectomy: No Lung Surgery: No Neurologic Surgery: No Orthopedic Surgery: No - Reproductive History Testicular Surgery: No - Suicide/Smoking/Psychosocial Hx Smoking History: Unknown if ever smoked Have you smoked in the past 12 months: No Number of Cigarettes Smoked Daily: 20 Cigars Per Day: 0 Information on smoking cessation initiated: No 'Breaking Loose' booklet given: 03/07/17 Hx Alcohol Use: Yes Drug/Substance Use Hx: No Substance Use Type: Alcohol (Started drinking alcohol at age 14, consumes 2-4 pints daily. Last drank on 03/06/17) Hx Substance Use Treatment: Yes (4 previous inpt detox admission) <Nita Ybarra - Last Filed: 08/01/17 06:17> - Past Medical History Allergies/Adverse Reactions: Allergies Allergy/AdvReac Type Severity Reaction Status Date / Time No Known Allergies Allergy Verified 08/01/17 01:13 Home Medications: Ambulatory Orders Enalapril Maleate [Vasotec -] 20 mg PO DAILY 08/19/13 Bupropion HCl [Wellbutrin Xl -] 300 mg PO DAILY #30 tab.sr.24h 08/20/13 Lamotrigine [Lamotrigine -] 150 mg PO BID #60 tablet 08/20/13 Warfarin Na [Coumadin] 3 mg PO DAILY 02/06/17 Bupropion HCl [Wellbutrin Xl -] 300 mg PO DAILY #30 tab.sr.24h 03/27/17 Lamotrigine [Lamictal -] 50 mg PO DAILY #60 tablet 03/27/17 traZODone HCL [Desyrel -] 100 mg PO HS #30 tablet 03/27/17 Enalapril Maleate [Vasotec -] 20 mg PO DAILY #30 tablet 03/28/17 Pravastatin Sodium [Pravachol -] 20 mg PO HS #30 tablet 03/28/17 Warfarin Na [Coumadin -] 5 mg PO DAILY@1800 #10 tablet 03/28/17 Review of Systems - Review of Systems Able to Perform ROS?: Yes Comments:: 08/01/17 05:49 +GENERAL/CONSTITUTIONAL: Intoxicated. No fever or chills. No weakness. HEAD, EYES, EARS, NOSE AND THROAT: No change in vision. No ear pain or discharge. No sore throat. CARDIOVASCULAR: No chest pain or shortness of breath. RESPIRATORY: No cough, wheezing, or hemoptysis. GASTROINTESTINAL: No nausea, vomiting, diarrhea or constipation. GENITOURINARY: No dysuria, frequency, or change in urination. MUSCULOSKELETAL: No joint or muscle swelling or pain. No neck or back pain. SKIN: No rash NEUROLOGIC: No headache, vertigo, loss of consciousness, or change in strength/ sensation. ENDOCRINE: No increased thirst. No abnormal weight change. HEMATOLOGIC/LYMPHATIC: No anemia, easy bleeding, or history of blood clots. ALLERGIC/IMMUNOLOGIC: No hives or skin allergy. All Other Systems: Reviewed and Negative <Luanne Louise - Last Filed: 08/01/17 05:49> *Physical Exam - Vital Signs Last Vital Signs Temp Pulse Resp BP Pulse Ox 98.2 F 119 H 16 147/86 96 08/01/17 00:30 08/01/17 00:30 08/01/17 00:30 08/01/17 00:30 08/01/17 00:30 - Physical Exam Comments: 08/01/17 05:50 GENERAL: Awake, alert, and fully oriented, in no acute distress HEAD: No signs of trauma EYES: PERRLA, EOMI, sclera anicteric, conjunctiva clear ENT: Auricles normal inspection, hearing grossly normal, nares patent, oropharynx clear without exudates. Moist mucosa NECK: Normal ROM, supple, no lymphadenopathy, JVD, or masses LUNGS: Breath sounds equal, clear to auscultation bilaterally. No wheezes, and no crackles HEART: Regular rate and rhythm, normal S1 and S2, no murmurs, rubs or gallops ABDOMEN: Soft, nontender, normoactive bowel sounds. No guarding, no rebound. No masses +EXTREMITIES: Right hand tremor. Normal range of motion, no edema. No clubbing or cyanosis. No cords, erythema, or tenderness NEUROLOGICAL: Cranial nerves II through XII grossly intact. Normal speech, normal gait SKIN: Warm, Dry, normal turgor, no rashes or lesions noted. <Luanne Louise - Last Filed: 08/01/17 05:49> - Vital Signs Last Vital Signs Temp Pulse Resp BP Pulse Ox 98.2 F 119 H 16 147/86 96 08/01/17 00:30 08/01/17 00:30 08/01/17 00:30 08/01/17 00:30 08/01/17 00:30 <Nita Ybarra - Last Filed: 08/01/17 06:17> ED Treatment Course - LABORATORY CBC & Chemistry Diagram: 08/01/17 02:43 08/01/17 02:43 - ADDITIONAL ORDERS Additional order review: Laboratory Results 08/01/17 08/01/17 02:43 02:43 Sodium 143 Potassium 3.3 L Chloride 107 Carbon Dioxide 26 Anion Gap 10 BUN 17 Creatinine 0.8 Creat Clearance w eGFR > 60 Random Glucose 114 H Calcium 8.2 L Total Bilirubin 0.4 AST 33 D ALT 37 D Alkaline Phosphatase 82 Total Protein 6.4 Albumin 3.3 L Alcohol, Quantitative 203.9 H* 08/01/17 02:43 RBC 4.67 MCV 89.0 MCHC 34.3 RDW 13.4 D MPV 7.3 L Neutrophils % 44.2 D Lymphocytes % 46.8 H D Monocytes % 8.0 Eosinophils % 0.4 Basophils % 0.6 - Medications Given in the ED: ED Medications Discontinued Medications Generic Name Dose Route Start Last Admin Trade Name Saurabhq PRN Reason Stop Dose Admin Potassium Chloride 40 meq 08/01/17 04:05 08/01/17 04:23 K-Dur - PO 08/01/17 04:06 40 meq ONCE ONE Administration <Luanne Louise - Last Filed: 08/01/17 05:49> - LABORATORY CBC & Chemistry Diagram: 08/01/17 02:43 08/01/17 02:43 <Nita Ybarra - Last Filed: 08/01/17 06:17> Medical Decision Making - Medical Decision Making 08/01/17 06:14 Pt comes with alcohol intox. Tachycardia. He is homeless. Pt's labs drawn. He was given Kdur and banana bag; he was also treated with librium, as he has withdrawal. I spoke to [facility] and they asked me to send the patient over there at 7AM, as they have nobody to intake the patient at this time. Pt agrees to go to detox. <Nita Ybarra - Last Filed: 08/01/17 06:17> *DC/Admit/Observation/Transfer - Attestations Scribe Attestion: 08/01/17 05:50 Documentation prepared by Luanne Louise, acting as medical receptionist medical assistant for Nita Ybarra MD. <Luanne Louise - Last Filed: 08/01/17 05:49> - Discharge Dispostion Decision to Admit order: No <Nita Ybarra - Last Filed: 08/01/17 06:17> Diagnosis at time of Disposition: Alcohol dependence with uncomplicated withdrawal - Discharge Dispostion Disposition: HOME Condition at time of disposition: Stable - Patient Instructions Printed Discharge Instructions: DI for Alcohol Abuse
[2017-08-01] MEDS ORDERED: FOLIC ACID INJECTION - 1 MG, THIAMINE HCL 100 MG, MULTIVIT INJECTION ADULT 10 ML in SOD... IVPB ONE (02:28)
[2017-08-01 03:01] LABS: BASO % 0.6 % (0-2.0); EOS % 0.4 % (0-4.5); HEMATOCRIT 41.6 % (35.4-49); HEMOGLOBIN 14.3 GM/dL (11.7-16.9); LYMPH % 46.8 % (8-40); MCH 30.5 pg (25.7-33.7); MCHC 34.3 g/dl (32.0-35.9); MEAN PLT VOLUME 7.3 fl (7.5-11.1); NEUT % 44.2 % (42.8-82.8); PLATELET COUNT 196 K/MM3 (134-434); RBC 4.67 M/mm3 (4.00-5.60); RDW 13.4 % (11.9-15.9); WHITE BLOOD COUNT 6.1 K/mm3 (4.0-10.0)
[2017-08-01 03:29] LABS: ALBUMIN 3.3 g/dl (3.4-5.0); ALK PHOS 82 U/L (45-117); ANION GAP 10 (8-16); BILIRUBIN,TOTAL 0.4 mg/dL (0.2-1.0); BLOOD UREA NITROGEN 17 mg/dL (7-18); CALCIUM 8.2 mg/dL (8.5-10.1); CHLORIDE 107 mmol/L (98-107); CO2 26 mmol/L (21-32); CREATININE 0.8 mg/dL (0.7-1.3); GLUCOSE,RANDOM 114 mg/dL (74-106); POTASSIUM 3.3 mmol/L (3.5-5.1); SGOT/AST 33 U/L (15-37); SGPT/ALT 37 U/L (12-78); SODIUM 143 mmol/L (136-145); TOT PROT 6.4 g/dl (6.4-8.2)
[2017-08-01] MEDS ORDERED: POTASSIUM CHLORIDE TABS 20 MEQ TABLET.ER (FP) PO ONE (04:05)
[2017-08-01] MEDS ORDERED: chlordiazePOXIDE HCL 25 MG CAPSULE PO ONE (05:26)
[2017-08-01] MEDS ORDERED: chlordiazePOXIDE HCL 25 MG CAPSULE ONE (06:46)
== END 2017-08-01 06:58 | disposition home or self-care (01) ==
LOC: JER 00:25
PROC: 3E033GC Introduction of Other Therapeutic Substance into Peripheral Vein, Percutaneous Approach (ICD-10-PCS; principal; 2017-08-01)
DX: F10.239 Alcohol dependence with withdrawal, unspecified (principal); I10 Essential (primary) hypertension; R25.1 Tremor, unspecified; Z86.73 Personal history of transient ischemic attack (TIA), and cerebral infarction without residual deficits; E78.00 Pure hypercholesterolemia, unspecified; F17.210 Nicotine dependence, cigarettes, uncomplicated
CPT/HCPCS: 36415; 80053; 80307; 85025; 99281-25; J7030

== ENCOUNTER 2017-08-01 08:17 | Inpatient (IN) | payer SELFPAY ==
[2017-08-01 09:23] VITALS: BMI 29.5
--- NOTE | 2017-08-01 10:21 | HP ---
CIWA Score - CIWA Score Nausea/Vomitin-Mild Nausea/No Vomiting Muscle Tremors: 3 Anxiety: 2 Agitation: 0-Normal Activity Paroxysmal Sweats: 2 Orientation: 0-Oriented Tacttile Disturbances: 2-Mild Itch/Numbness/Burn Auditory Disturbances: 0-None Visual Disturbances: 0-None Headache: 3-Moderate CIWA-Ar Total Score: 13 Admission ROS S - HPI Chief Complaint: ETOH WITHDRAWAL SYMPTOMS. Allergies/Adverse Reactions: Allergies Allergy/AdvReac Type Severity Reaction Status Date / Time No Known Allergies Allergy Verified 08/01/17 09:56 History of Present Illness: PATIENT PRESENTS WITH ETOH WITHDRAWAL SYMPTOMS. PATIENT WAS INCARCERATED FROM TO 07/22/17. PATIENT RELAPSED AFTER RELEASED AND WENT TO [facility] LAST NIGHT FOR WITHDRAWAL SYMPTOMS. STATES HE WAS GIVEN ONE DOSE OF LIBRIUM. PATIENT ADMITTED FOR DETOX IN 2017 AT [facility]. START DRINKING AT AGE 14 AND DRINKS UP TO 1/2 GALLON OF VODKA DAILY. HAS HX OF SEIZURES YEARS AGO FROM ETOH WITHDRAWAL. PMH INCLUDES PULMONARY EMBOLISM AND TREATED WITH COUMADIN. PT NONCOMPLIANT WITH MEDICATION. ALSO HAS HX OF GERD, HLD, HTN AND DEPRESSION. DENIES SI/HI. ATTEMPTED SUICIDE IN 2001 BY JUMPING OFF BRIDGE. Exam Limitations: Intoxication - Ebola screening Have you traveled outside of the country in the last 21 days: No (N) Have you had contact with anyone from an Ebola affected area: No Have you been sick,other than usual withdrawal symptoms: No Do you have a fever: No - Review of Systems Constitutional: Night Sweats, Changes in sleep, Unintentional Wgt. Loss EENT: reports: Recent change in vision, Nose Congestion Respiratory: reports: No Symptoms reported Cardiac: reports: No Symptoms Reported GI: reports: Diarrhea, Nausea, Poor Fluid Intake, Vomiting, Abdominal cramping : reports: No Symptoms Reported Musculoskeletal: reports: Back Pain, Muscle Pain Integumentary: reports: Sweating Neuro: reports: Headache, Numbness, Seizure, Tremors, Dizziness Endocrine: reports: Unexplained Weight Loss Hematology: reports: No Symptoms Reported Psychiatric: reports: Orientated x3, Anxious, Depressed Patient History - Patient Medical History Hx Anemia: No Hx Asthma: No Hx Chronic Obstructive Pulmonary Disease (COPD): No Hx Cancer: No Hx Cardiac Disorders: No Hx Congestive Heart Failure: No Hx Hypertension: Yes Hx Hypercholesterolemia: Yes (non compliance) Hx Pacemaker: No HX Cerebrovascular Accident: Yes (Brain bleed 2016) Hx Seizures: Yes (alcohol related-last episode was in 2013) Hx Dementia: No Hx Diabetes: No Hx Gastrointestinal Disorders: Yes (acid reflux) Hx Liver Disease: No Hx Genitourinary Disorders: No Hx Sexually Transmitted Disorders: No Hx Renal Disease (ESRD): No Hx Thyroid Disease: No Hx Human Immunodeficiency Virus (HIV): No Hx Hepatitis C: No Hx Depression: Yes Hx Suicide Attempt: Yes (thought of jumping off bridge in 2001) Hx Bipolar Disorder: Yes Hx Schizophrenia: No - Patient Surgical History Past Surgical History: Yes Hx Neurologic Surgery: No Hx Cataract Extraction: No Hx Cardiac Surgery: No Hx Lung Surgery: No Hx Breast Surgery: No Hx Breast Biopsy: No Hx Abdominal Surgery: Yes (s/p repair of right inguinal hernia repair ) Hx Appendectomy: No Hx Cholecystectomy: No Hx Genitourinary Surgery: No Hx Orthopedic Surgery: No Other Surgical History: arthroscopic surgery right knee for torn meniscus 20 years ago Anesthesia Reaction: No - PPD History Previous Implant?: Yes Documented Results: Negative w/proof Implanted On Prior [facility] Admission?: Yes Date: 02/08/17 Results: 0 mm PPD to be Administered?: No - Smoking Cessation Smoking history: Current every day smoker Have you smoked in the past 12 months: Yes Aproximately how many cigarettes per day: 20 Cigars Per Day: 0 Hx Chewing Tobacco Use: No Initiated information on smoking cessation: Yes 'Breaking Loose' booklet given: 08/01/17 - Substances Abused Alcohol-vodka Route: Oral Frequency: Daily Amount used: 4-5 pts. Age of first use: 15 Date of Last Use: 08/01/17 Family Disease History - Family Disease History Family Disease History: Diabetes: Father, Mother (alzheimer), Heart Disease: Father, Other: Grandparent (alcohol), Mother Admission Physical Exam B[facility] - Vital Signs Vital Signs: Vital Signs - 24 hr 08/01/17 09:21 Temperature 98.4 F Pulse Rate 108 H Respiratory 20 Rate Blood Pressure 149/100 - Physical General Appearance: Yes: Disheveled, Alcohol on Breath, Tremorous, Sweating, Anxious HEENTM: Yes: EOMI, Hearing grossly Normal, Normocephalic, Normal Voice, LILIYA, Pharynx Normal, Nasal Congestion Respiratory: Yes: Chest Non-Tender, Lungs Clear, Normal Breath Sounds, No Respiratory Distress, No Accessory Muscle Use Neck: Yes: No masses,lesions,Nodules, Supple Breast: Yes: Breast Exam Deferred Cardiology: Yes: Regular Rhythm, Regular Rate Abdominal: Yes: Normal Bowel Sounds, Non Tender, Soft Genitourinary: Yes: Within Normal Limits Back: Yes: Normal Inspection Musculoskeletal: Yes: full range of Motion, Gait Steady, Back pain, Muscle Pain Extremities: Yes: Normal Inspection, Normal Range of Motion, Non-Tender, Tremors 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 NML intact, Fully Oriented, Alert, Numbness, Depressed Affect Integumentary: Yes: Warm, Moist Lymphatic: Yes: Within Normal Limits - Diagnostic (1) Alcohol dependence with uncomplicated withdrawal Current Visit: Yes Status: Acute (2) Bipolar affective disorder, mixed Current Visit: Yes Status: Chronic (3) Essential hypertension Current Visit: Yes Status: Chronic (4) Gastroesophageal reflux disease Current Visit: Yes Status: Chronic (5) History of warfarin therapy Current Visit: Yes Status: Chronic (6) Hypercholesterolemia Current Visit: Yes Status: Chronic (7) Nicotine dependence Current Visit: Yes Status: Chronic Qualifiers: Nicotine product type: cigarettes Substance use status: uncomplicated Qualified Code(s): F17.210 - Nicotine dependence, cigarettes, uncomplicated (8) Seizure Current Visit: No Status: Chronic (9) Pulmonary embolism Current Visit: No Status: Suspected Qualifiers: Pulmonary embolism type: other Chronicity: chronic Cleared for Admission [facility] - Detox or Rehab [facility] Level of Care: Medically Managed Detox Regimen/Protocol: Librium [facility] Breath Alcohol Content Breath Alcohol Content: 0.054 Urine Drug Screen - Results Drug Screen Negative: Yes
[2017-08-01] MEDS ORDERED: guaiFENesin/D-METHORPHAN HB 10 ML UNIT-DOSE CUPS PO PRN (10:29)
[2017-08-01] MEDS ORDERED: MENTHOL/PHENOL 1 EACH UD MM PRN (10:29)
[2017-08-01] MEDS ORDERED: IBUPROFEN 400 MG TABLET (FP) PO PRN (10:29)
[2017-08-01] MEDS ORDERED: LOPERAMIDE HCL 2 MG CAPSULE PO PRN (10:29)
[2017-08-01] MEDS ORDERED: MAG HYDROX/AL HYDROX/SIMETH 30 ML UNIT-DOSE CUP PO PRN (10:29)
[2017-08-01] MEDS ORDERED: NICOTINE POLACRILEX 2 MG GUM BUC PRN (10:29)
[2017-08-01] MEDS ORDERED: ACETAMINOPHEN 325 MG TABLET (FP) PO PRN (10:29)
[2017-08-01] MEDS ORDERED: P-EPHED 60MG/TRIPROLIDI 2.5MG TABLET PO PRN (10:29)
[2017-08-01] MEDS ORDERED: MAGNESIUM CITRATE 300 ML BOTTLE PO PRN (10:29)
[2017-08-01] MEDS ORDERED: MAGNESIUM HYDROX 2400MG/30ML ORAL SUSPENSION 30 ML CUP PO PRN (10:29)
[2017-08-01] MEDS ORDERED: chlordiazePOXIDE HCL 25 MG CAPSULE PO ONE (11:35)
[2017-08-01] MEDS: chlordiazePOXIDE HCL 25 MG CAPSULE PO SCH ×3 (12:09→22:27)
[2017-08-01 15:25] LABS: INR 1.04 (0.82-1.09); PROTHROMBIN TIME (PATIENT) 11.7 SEC (9.7-13.0)
--- NOTE | 2017-08-01 16:32 | CONSULT ---
[facility] Psychiatric Consult - Data Date of interview: 08/01/17 Admission source: [facility] Identifying data: Readmission to [facility] for this 57 y/o male seeking detox treatment on for alcohol dependence.Patient is ,a father of one,domiciled,unemployed and reportedly deprived of any source of income. Substance Abuse History: Discussed in my interview.Patient confirms content of the following section of current [facility] report : Smoking history: Current every day smoker. Have you smoked in the past 12 months: Yes. Aproximately how many cigarettes per day: 20. Cigars Per Day: 0. Hx Chewing Tobacco Use: No. Initiated information on smoking cessation: Yes. 'Breaking Loose' booklet given : 08/01/17. - Substances Abused. Alcohol-vodka. Route: Oral. Frequency: Daily. Amount used: 4-5 pts. Age of first use: 15. Date of Last Use: 08/01/17 Medical History: Hypertension,dyslipidemia,antecedent of CVA (subdural hemorrhage from accidental fall) in 2017,past treatment for pulmonary embolism, withdrawal-related seizures,GERD,neuropathy,past history of right inguinal herniorraphy and arthroscopic surgery of right knee (torn meniscus : several years ago). Psychiatric History: Patient admits to a history of multiple psychiatric hospitalizations ([facility], [facility]).Diagnosed with Bipolar Disorder,OCD,ADHD.Patient reports that he " used to be " prescribed lamictal 150 mg po bid + trazodone 200 mg/hs + wellbutrin XL 300 mg/daily.Last taken two weeks ago as per self- report.Mr Ortega reports sporadic adherence to his medications (released from detention a week ago).He is known to the [facility] in [facility].Patient endorses a history of suicidal ideation with intent to jump off of a bridge (no actual attempts).In fact, he was prevented from jumping off of the [place] bridge by officers of the [place] [employer] department ([id number]). Physical/Sexual Abuse/Trauma History: Patient denies. Additional Comment: Drug Screen is negative. Mental Status Exam - Mental Status Exam Alert and Oriented to: Time, Place, Person Cognitive Function: Grossly Intact Patient Appearance: Unkempt, Disheveled Mood: Nervous, Withdrawn, Anxious Affect: Mood Congruent, Constricted Patient Behavior: Fatigued, Cooperative (superficially cooperative) Speech Pattern: Clear Voice Loudness: Normal Thought Process: Goal Oriented Thought Disorder: Not Present Hallucinations: Denies Suicidal Ideation: Denies Homicidal Ideation: Denies Insight/Judgement: Poor Sleep: Poorly, Difficulty falling asleep Appetite: Good Muscle strength/Tone: Normal Gait/Station: Normal (not observed : patient in bed throughout interview) Psychiatric Findings - Problem List ([place] 1, 2,3) (1) Alcohol dependence with uncomplicated withdrawal Current Visit: Yes Status: Acute (2) Nicotine dependence Current Visit: Yes Status: Acute Qualifiers: Nicotine product type: cigarettes Substance use status: uncomplicated Qualified Code(s): F17.210 - Nicotine dependence, cigarettes, uncomplicated (3) Substance induced mood disorder Current Visit: Yes Status: Acute (4) Bipolar disorder Current Visit: Yes Status: Chronic Comment: As per existing records. (5) ADHD (attention deficit hyperactivity disorder) Current Visit: Yes Status: Chronic Comment: As per self-report. (6) Insomnia Current Visit: Yes Status: Acute (7) Non compliance w medication regimen Current Visit: Yes Status: Chronic - Initial Treatment Plan Initial Treatment Plan: Psychoeducation.Sleep hygiene.Detoxification in progress.Medications : wellbutrin XL 150 mg po daily.Trazodone is held in view of abnormal EKG (prolonged Qtc).Lamotrigine is withdrawn (non-adherence for undetermined period of time).Side effects/benefits of wellbutrin and trazodone are explained to patient.Made aware of risk of seizures and priapism ( respectively).Mr Ortega consents (verbally) to this plan of care (wellbutrin) .Observation.
--- NOTE | 2017-08-01 16:49 | EKG ---
Test Reason : Blood Pressure : / mmHG Vent. Rate : 102 BPM Atrial Rate : 102 BPM P-R Int : 128 ms QRS Dur : 156 ms QT Int : 412 ms P-R-T Axes : -08 021 -20 degrees QTc Int : 536 ms SINUS TACHYCARDIA RIGHT BUNDLE BRANCH BLOCK T WAVE ABNORMALITY, CONSIDER INFEROLATERAL ISCHEMIA ABNORMAL ECG WHEN COMPARED WITH ECG OF 07-MAR-2017 03:14, QUESTIONABLE CHANGE IN QRS DURATION MINIMAL CRITERIA FOR ANTERIOR INFARCT ARE NO LONGER PRESENT CRITERIA FOR INFERIOR INFARCT ARE NO LONGER PRESENT Confirmed by TAO PRATHER MD ([id number]) on 08/01/2017 4:48:56 PM Referred By: Confirmed By:TAO PRATHER MD
[2017-08-01 18:14] LABS: URINE APPEARANCE TURBID; URINE BILIRUBIN NEGATIVE (<2.0 mg/dL); URINE BLOOD NEGATIVE (NEGATIVE); URINE COLOR AMBER; URINE GLUCOSE (UA) NEGATIVE (NEGATIVE); URINE KETONE NEGATIVE (NEGATIVE); URINE LEUK ESTERASE NEGATIVE (NEGATIVE); URINE NITRITE NEGATIVE (NEGATIVE); URINE PROTEIN NEGATIVE (NEGATIVE)
[2017-08-01] MEDS ORDERED: traZODone HCL 100 MG TABLET (FP) PO SCH (22:00)
[2017-08-01] MEDS ORDERED: MELATONIN 5 MG TABLETS PO PRN (22:00)
[2017-08-01] MEDS: hydrOXYzine PAMOATE 50 MG CAPSULE (FP) PO PRN (22:27)
[2017-08-01] MEDS: THIAMINE HCL 100 MG TABLET (FP) PO SCH (22:27)
[2017-08-02] MEDS: chlordiazePOXIDE HCL 25 MG CAPSULE PO SCH ×4 (05:24→22:04)
[2017-08-02] MEDS: PANTOPRAZOLE 40 MG TABLET (FP) PO SCH (10:25)
[2017-08-02] MEDS: ENALAPRIL MALEATE 10 MG TABLET (FP) PO SCH (10:25)
[2017-08-02] MEDS: PRENATAL VITAMINS W/ FOLIC ACID TABLET (FP) PO SCH (10:25)
[2017-08-02] MEDS: NICOTINE 21 MG/24 HOURS TOPICAL PATCH TD SCH (10:28)
--- NOTE | 2017-08-02 13:45 | PN ---
S CIWA - CIWA Score Nausea/Vomitin Muscle Tremors: 3 Anxiety: 3 Agitation: 2 Paroxysmal Sweats: 3 Orientation: 0-Oriented Tacttile Disturbances: 2-Mild Itch/Numbness/Burn Auditory Disturbances: 0-None Visual Disturbances: 0-None Headache: 3-Moderate CIWA-Ar Total Score: 19 S Progress Note (SOAP) Subjective: Tremors, H/A, Diarrhea, Nausea, Stomach Cramping, Sweating. Objective: PATIENT A & O X 3. NO ACUTE DISTRESS. 08/02/17 13:43 Vital Signs Temperature 97.3 F L 08/02/17 09:14 Pulse Rate 78 08/02/17 09:14 Respiratory Rate 20 08/02/17 09:14 Blood Pressure 116/76 08/02/17 09:14 O2 Sat by Pulse Oximetry (%) Laboratory Tests 08/01/17 08/01/17 11:00 15:00 PT with INR 11.70 INR 1.04 D Urine Color Eli Urine Appearance Turbid Urine pH 5.0 Ur Specific Sheldon 1.031 Urine Protein Negative Urine Glucose (UA) Negative Urine Ketones Negative Urine Blood Negative Urine Nitrite Negative Urine Bilirubin Negative Urine Urobilinogen 2.0 Ur Leukocyte Esterase Negative ADMISSION LABS NOTED. RESULTS OF PT/INR NOTED. 08/02/17 15:17 Assessment: 08/02/17 13:45 WITHDRAWAL SYMPTOMS. HYPOKALEMIA. 08/02/17 13:48 Plan: CONTINUE DETOX. K-DUR, 20 MEQ PO BID. PATIENT REPORTS THAT HE HAS NOT TAKEN COUMADIN (5 MG PO DAILY) FOR APPROX. LAST TWO (2) WEEKS PRIOR TO ADMISSION TO DETOX. ACCORDING TO PHARMACIST AT PATIENT'S HOME PHARMACY ([facility], STORE # [id number], [facility] [address]), PATIENT WAS LAST PRESCRIBED COUMADIN AT 5 MG PO DAILY x 10 DAYS BACK IN MARCH OF 2017. RE-START COUMADIN @ 5 MG PO DAILY @ 1800 FOR TIME BEING. RE-CHECK PT/INR TOMORROW (08/03/2017) AM, THEN IN AM ON 08/04/2017 FOR FOLLOW-UP EVALUATION OF EFFECT OF COUMADIN.
[2017-08-02] MEDS ORDERED: POTASSIUM CHLORIDE TABS 20 MEQ TABLET.ER (FP) PO ONE (14:05)
[2017-08-02] MEDS: POTASSIUM CHLORIDE TABS 20 MEQ TABLET.ER (FP) PO SCH (17:31)
[2017-08-02] MEDS ORDERED: WARFARIN NA 5 MG TABLET (UD) PO SCH (18:00)
[2017-08-02] MEDS: hydrOXYzine PAMOATE 50 MG CAPSULE (FP) PO PRN (22:04)
[2017-08-02] MEDS: THIAMINE HCL 100 MG TABLET (FP) PO SCH (22:04)
[2017-08-03] MEDS: chlordiazePOXIDE HCL 25 MG CAPSULE PO PRN ×2 (02:15→21:06)
[2017-08-03] MEDS: hydrOXYzine PAMOATE 50 MG CAPSULE (FP) PO PRN ×2 (02:15→21:07)
[2017-08-03] MEDS: chlordiazePOXIDE HCL 25 MG CAPSULE PO SCH (06:17)
[2017-08-03 10:07] LABS: INR 0.91 (0.82-1.09); PROTHROMBIN TIME (PATIENT) 10.3 SEC (9.7-13.0)
[2017-08-03] MEDS: NICOTINE 21 MG/24 HOURS TOPICAL PATCH TD SCH (10:25)
[2017-08-03] MEDS: PRENATAL VITAMINS W/ FOLIC ACID TABLET (FP) PO SCH (10:25)
[2017-08-03] MEDS: PANTOPRAZOLE 40 MG TABLET (FP) PO SCH (10:25)
[2017-08-03] MEDS: POTASSIUM CHLORIDE TABS 20 MEQ TABLET.ER (FP) PO SCH ×2 (10:25→17:46)
[2017-08-03] MEDS: ENALAPRIL MALEATE 10 MG TABLET (FP) PO SCH (10:27)
[2017-08-03] MEDS: chlordiazePOXIDE 5 MG CAPSULE PO SCH ×3 (10:28→22:34)
--- NOTE | 2017-08-03 12:10 | PN ---
[facility] CIWA - CIWA Score Nausea/Vomitin-No Nausea/No Vomiting Muscle Tremors: 3 Anxiety: 4-Mod. Anxious/Guarded Agitation: 0-Normal Activity Paroxysmal Sweats: 3 Orientation: 0-Oriented Tacttile Disturbances: 2-Mild Itch/Numbness/Burn Auditory Disturbances: 0-None Visual Disturbances: 3-Moderate Sensitivity Headache: 0-None Present CIWA-Ar Total Score: 15 S Progress Note (SOAP) Subjective: Fatigue, Sweating, Anxious, Tremors. Patient reports that he had not taken Coumadin for approx. 2 weeks prior to this Detox admission; however, he reports that he believes that he had been taking it while incarcerated for approx. 2 months prior to that time. Objective: PATIENT A & O X 3. NO ACUTE DISTRESS. 08/03/17 12:10 Vital Signs Temperature 98.4 F 08/03/17 09:31 Pulse Rate 82 08/03/17 09:31 Respiratory Rate 20 08/03/17 09:31 Blood Pressure 104/65 08/03/17 09:31 O2 Sat by Pulse Oximetry (%) Laboratory Tests 08/01/17 08/01/17 08/01/17 11:00 11:00 15:00 PT with INR 11.70 INR 1.04 D Urine Color Eli Urine Appearance Turbid Urine pH 5.0 Ur Specific [place] 1.031 Urine Protein Negative Urine Glucose (UA) Negative Urine Ketones Negative Urine Blood Negative Urine Nitrite Negative Urine Bilirubin Negative Urine Urobilinogen 2.0 Ur Leukocyte Esterase Negative RPR Titer Nonreactive 08/03/17 06:40 PT with INR 10.30 INR 0.91 Urine Color Urine Appearance Urine pH Ur Specific [place] Urine Protein Urine Glucose (UA) Urine Ketones Urine Blood Urine Nitrite Urine Bilirubin Urine Urobilinogen Ur Leukocyte Esterase RPR Titer LABS NOTED. RESULTS OF REPEAT PT/INR NOTED. Assessment: 08/03/17 12:12 WITHDRAWAL SYMPTOMS. HYPOKALEMIA. Plan: CONTINUE DETOX. INCREASE DOSE FOR COUMADIN FOR THIS EVENING TO 7.5 MG. REPEAT PT/INR TOMORROW AM. WILL TITRATE ACCORDINGLY, IF NECESSARY, AFTER THOSE RESULTS AVAILABLE. CONTINUE K-DUR.
[2017-08-03] MEDS: WARFARIN NA 7.5 MG TABLET (FP) PO SCH (17:46)
[2017-08-03] MEDS ORDERED: cloNIDine HCL 0.1 MG TABLET PO ONE (21:36)
[2017-08-03] MEDS: THIAMINE HCL 100 MG TABLET (FP) PO SCH (22:33)
[2017-08-04] MEDS: chlordiazePOXIDE 5 MG CAPSULE PO SCH (09:58)
[2017-08-04] MEDS: NICOTINE 21 MG/24 HOURS TOPICAL PATCH TD SCH (10:32)
[2017-08-04] MEDS: PANTOPRAZOLE 40 MG TABLET (FP) PO SCH (10:32)
[2017-08-04] MEDS: POTASSIUM CHLORIDE TABS 20 MEQ TABLET.ER (FP) PO SCH ×2 (10:32→17:31)
[2017-08-04] MEDS: ENALAPRIL MALEATE 10 MG TABLET (FP) PO SCH (10:32)
[2017-08-04] MEDS: chlordiazePOXIDE HCL 10 MG CAPSULE PO SCH ×2 (10:32→17:31)
[2017-08-04] MEDS: PRENATAL VITAMINS W/ FOLIC ACID TABLET (FP) PO SCH (10:32)
[2017-08-04] MEDS ORDERED: ONDANSETRON *ODT* 4 MG TABLET SL PRN (10:43)
--- NOTE | 2017-08-04 13:26 | PN ---
[facility] Progress Note (SOAP) Subjective: Fatigue, Tremors, Nausea, Body Aches. Objective: PATIENT A & O X 3, OBSERVED AMBULATING ON UNIT. NO ACUTE DISTRESS. 08/04/17 13:22 Vital Signs Temperature 97.7 F 08/04/17 09:45 Pulse Rate 80 08/04/17 09:45 Respiratory Rate 20 08/04/17 09:45 Blood Pressure 109/70 08/04/17 09:45 O2 Sat by Pulse Oximetry (%) Laboratory Tests 08/01/17 08/01/17 08/01/17 11:00 11:00 15:00 PT with INR 11.70 INR 1.04 D Urine Color Eli Urine Appearance Turbid Urine pH 5.0 Ur Specific [place] 1.031 Urine Protein Negative Urine Glucose (UA) Negative Urine Ketones Negative Urine Blood Negative Urine Nitrite Negative Urine Bilirubin Negative Urine Urobilinogen 2.0 Ur Leukocyte Esterase Negative RPR Titer Nonreactive 08/03/17 06:40 PT with INR 10.30 INR 0.91 Urine Color Urine Appearance Urine pH Ur Specific [place] Urine Protein Urine Glucose (UA) Urine Ketones Urine Blood Urine Nitrite Urine Bilirubin Urine Urobilinogen Ur Leukocyte Esterase RPR Titer LABS NOTED. RESULTS OF REPEAT PT/INR FROM EARLIER TODAY PENDING. 08/04/17 13:23 Assessment: 08/04/17 13:23 WITHDRAWAL SYMPTOMS. HYPOKALEMIA. 08/04/17 13:26 Plan: CONTINUE DETOX. CONTINUE K-DUR. ENCOURAGE AMBULATION.
[2017-08-04 15:22] LABS: INR 0.95 (0.82-1.09); PROTHROMBIN TIME (PATIENT) 10.7 SEC (9.7-13.0)
--- NOTE | 2017-08-04 16:03 | PN ---
S Progress Note Note: RESULTS REPEAT PT/INR FROM EARLIER TODAY NOTED. MAINTAIN PATIENT AT COUMADIN, 7.5 MG PO FOR THIS EVENING. RE-CHECK PT/INR TOMORROW AM. Kerri WOODWARD NP
[2017-08-04] MEDS: WARFARIN NA 7.5 MG TABLET (FP) PO SCH (17:31)
[2017-08-04 17:33] VITALS: BP 137/85; PULSE 80; TEMP 98.3
== END 2017-08-04 19:08 | disposition left against medical advice (07) | DRG 770 ==
LOC: YASAS 08:17 → Y3N 11:10
PROVIDERS: ADMIT Surgery; ATTEND Surgery
PROC: HZ2ZZZZ Detoxification Services for Substance Abuse Treatment (ICD-10-PCS; principal; 2017-08-01)
DX: F10.230 Alcohol dependence with withdrawal, uncomplicated (principal); F17.210 Nicotine dependence, cigarettes, uncomplicated; F19.24 Other psychoactive substance dependence with psychoactive substance-induced mood disorder; F90.9 Attention-deficit hyperactivity disorder, unspecified type; F31.60 Bipolar disorder, current episode mixed, unspecified; I10 Essential (primary) hypertension; K21.9 Gastro-esophageal reflux disease without esophagitis; E78.5 Hyperlipidemia, unspecified; E87.6 Hypokalemia; I27.82 Chronic pulmonary embolism; G47.00 Insomnia, unspecified; Z91.14 Patient's other noncompliance with medication regimen; Z79.01 Long term (current) use of anticoagulants; Z86.69 Personal history of other diseases of the nervous system and sense organs; Z91.5 Personal history of self-harm
CPT/HCPCS: 36415; 80175; 81003; 85610; 86593; 93005; 93010; J0735

== ENCOUNTER 2017-08-26 02:45 | Emergency (ER) | payer OTHER ==
[2017-08-26 03:00] VITALS: BMI 31.0
[2017-08-26] MEDS ORDERED: chlordiazePOXIDE HCL 25 MG CAPSULE ONE (03:47)
[2017-08-26] MEDS ORDERED: chlordiazePOXIDE HCL 25 MG CAPSULE PO ONE (03:55)
[2017-08-26 04:02] LABS: BASO % 0.7 % (0-2.0); EOS % 0.6 % (0-4.5); HEMATOCRIT 43.2 % (35.4-49); HEMOGLOBIN 14.5 GM/dL (11.7-16.9); LYMPH % 37.7 % (8-40); MCH 31.6 pg (25.7-33.7); MCHC 33.6 g/dl (32.0-35.9); MEAN PLT VOLUME 7.1 fl (7.5-11.1); MONO % 9.4 % (3.8-10.2); NEUT % 51.6 % (42.8-82.8); PLATELET COUNT 204 K/MM3 (134-434); RDW 21.4 % (11.9-15.9)
--- NOTE | 2017-08-26 04:06 | PDOC ---
History of Present Illness - General Chief Complaint: Alcohol intoxication Stated Complaint: INTOX Time Seen by Provider: 08/26/17 03:29 History Source: Patient - History of Present Illness Initial Comments: 08/26/17 06:50 57-year-old male brought in by EMS for alcohol intoxication. Patient reports that he would like to have inpatient rehabilitation and detox for chronic alcohol use.. Patient reports that he drinks 4-6 pints of vodka daily. Patient is currently undomiciled and is living in a [place]. Denies homicide ideation, suicidal ideation. "I am going to if I continue this I need to go to long- term rehabilitation " Past History - Past Medical History Allergies/Adverse Reactions: Allergies Allergy/AdvReac Type Severity Reaction Status Date / Time No Known Allergies Allergy Verified 08/01/17 09:56 Home Medications: Ambulatory Orders Lamotrigine [Lamotrigine -] 150 mg PO BID #60 tablet 08/20/13 traZODone HCL [Desyrel -] 100 mg PO HS #30 tablet 03/27/17 Enalapril Maleate [Vasotec -] 20 mg PO DAILY #30 tablet 03/28/17 Pravastatin Sodium [Pravachol -] 20 mg PO HS #30 tablet 03/28/17 Warfarin Na [Coumadin -] 5 mg PO DAILY@1800 #10 tablet 03/28/17 Omeprazole Magnesium 40 mg PO DAILY 08/01/17 Bupropion HCl [Wellbutrin Xl -] mg PO DAILY 08/26/17 Anemia: No Asthma: No Cancer: No Cardiac Disorders: No CVA: Yes (Brain bleed 2016) COPD: No CHF: No Dementia: No Diabetes: No GI Disorders: Yes (acid reflux) Disorders: No HTN: Yes Hypercholesterolemia: Yes (non compliance) Kidney Stones: No Liver Disease: No Seizures: Yes (alcohol related-last episode was in 2013) Thyroid Disease: No - Surgical History Abdominal Surgery: Yes (s/p repair of right inguinal hernia repair ) Appendectomy: No Cardiac Surgery: No Cholecystectomy: No Lung Surgery: No Neurologic Surgery: No Orthopedic Surgery: No - Reproductive History Testicular Surgery: No - Suicide/Smoking/Psychosocial Hx Smoking History: Never smoked Have you smoked in the past 12 months: No Number of Cigarettes Smoked Daily: 20 Cigars Per Day: 0 Information on smoking cessation initiated: No 'Breaking Loose' booklet given: 08/01/17 Hx Alcohol Use: No Drug/Substance Use Hx: No Substance Use Type: Alcohol (Started drinking alcohol at age 14, consumes 2-4 pints daily. Last drank on 03/06/17) Hx Substance Use Treatment: Yes (4 previous inpt detox admission) Review of Systems - Review of Systems Able to Perform ROS?: Yes Is the patient limited Macedonian proficient: No Constitutional: Yes: Other (no head injury) HEENTM: No: Symptoms Reported, See HPI, Eye Pain, Blurred Vision, Tearing, Recent change in vision, Double Vision, Cataracts, Ear Pain, Ocular Prothesis, Ear Discharge, Nose Pain, Nose Congestion, Tinnitus, Nose Bleeding, Hearing Loss , Throat Pain, Throat Swelling, Mouth Pain, Dental Problems, Difficulty Swallowing, Mouth Swelling, Other ABD/GI: No: Symptoms Reported, See HPI, Abdominal Distended, Abd. Pain w/ defecation, Blood Streaked Bowels, Constipated, Diarrhea, Difficulty Swallowing , Nausea, Poor Appetite, Poor Fluid Intake, Rectal Bleeding, Vomiting, Indigestion, Abdominal cramping, Tarry Stools, Other : No: Symptoms Reported, See HPI, Burning, Dysuria, Discharge, Frequency, Flank Pain, Hematuria, Incontinence, Pain, Urgency, Testicular Mass, Testicular Swelling, Lesions, Testicular Pain, Other *Physical Exam - Vital Signs Last Vital Signs Temp Pulse Resp BP Pulse Ox 98.8 F 117 H 20 134/91 94 L 08/26/17 02:59 08/26/17 02:59 08/26/17 02:59 08/26/17 02:59 08/26/17 02:59 - Physical Exam General Appearance: Yes: Disheveled, Alcohol on Breath, Other (talking in clear sentences). No: Intoxicated Respiratory/Chest: positive: Normal Breath Sounds Cardiovascular: positive: Tachycardia Gastrointestinal/Abdominal: positive: Normal Bowel Sounds, Soft Extremity: positive: Normal Capillary Refill, Normal Inspection, Normal Range of Motion, Other (+ tremors ) Integumentary: positive: Normal Color, Dry, Warm Neurologic: positive: Fully Oriented, Alert ED Treatment Course - LABORATORY CBC & Chemistry Diagram: 08/26/17 03:54 08/26/17 03:54 - ADDITIONAL ORDERS Additional order review: 08/26/17 03:54 RBC 4.60 MCV 94.0 MCHC 33.6 RDW 21.4 H MPV 7.1 L Neutrophils % 51.6 Lymphocytes % 37.7 Monocytes % 9.4 Eosinophils % 0.6 Basophils % 0.7 - Medications Given in the ED: ED Medications Discontinued Medications Generic Name Dose Route Start Last Admin Trade Name Saurabhq PRN Reason Stop Dose Admin Chlordiazepoxide HCl 50 mg 08/26/17 03:55 08/26/17 03:55 Librium - PO 08/26/17 03:56 50 mg NOW ONE Administration Medical Decision Making - Medical Decision Making 08/26/17 06:55 Kristen Mari [employer]ELOP[employer] SPECIALIST in [facility]. patient with recent detox admission. advised to speak to Dylon Colunga for admission. pending disposition plan *DC/Admit/Observation/Transfer Diagnosis at time of Disposition: Alcohol dependence, episodic drinking behavior - Referrals - Patient Instructions - Post Discharge Activity
--- NOTE | 2017-08-26 04:11 | PDOC ---
*Physical Exam - Vital Signs Last Vital Signs Temp Pulse Resp BP Pulse Ox 98.8 F 117 H 20 134/91 94 L 08/26/17 02:59 08/26/17 02:59 08/26/17 02:59 08/26/17 02:59 08/26/17 02:59 ED Treatment Course - LABORATORY CBC & Chemistry Diagram: 08/26/17 03:54 08/26/17 03:54 - ADDITIONAL ORDERS Additional order review: 08/26/17 03:54 RBC 4.60 MCV 94.0 MCHC 33.6 RDW 21.4 H MPV 7.1 L Neutrophils % 51.6 Lymphocytes % 37.7 Monocytes % 9.4 Eosinophils % 0.6 Basophils % 0.7 - Medications Given in the ED: ED Medications Discontinued Medications Generic Name Dose Route Start Last Admin Trade Name Freq PRN Reason Stop Dose Admin Chlordiazepoxide HCl 50 mg 08/26/17 03:55 08/26/17 03:55 Librium - PO 08/26/17 03:56 50 mg NOW ONE Administration Medical Decision Making - Medical Decision Making 08/26/17 04:11 agree with care from MARILYN Choi *DC/Admit/Observation/Transfer Diagnosis at time of Disposition: Alcohol dependence, episodic drinking behavior, Alcohol withdrawal - Discharge Dispostion Disposition: HOME - Referrals - Patient Instructions Printed Discharge Instructions: DI for Alcohol Abuse Additional Instructions: You were treated for alcohol withdrawal and were transferred to [facility] to detox - Post Discharge Activity
[2017-08-26 04:25] LABS: ALBUMIN 3.4 g/dl (3.4-5.0); ANION GAP 13 (8-16); BLOOD UREA NITROGEN 12 mg/dL (7-18); CALCIUM 8.4 mg/dL (8.5-10.1); CHLORIDE 103 mmol/L (98-107); CO2 29 mmol/L (21-32); CREATININE 0.8 mg/dL (0.7-1.3); GLUCOSE,RANDOM 107 mg/dL (74-106); MAGNESIUM 2.1 mg/dL (1.8-2.4); POTASSIUM 3.3 mmol/L (3.5-5.1); SGOT/AST 34 U/L (15-37); SGPT/ALT 30 U/L (12-78); SODIUM 145 mmol/L (136-145)
[2017-08-26 04:27] LABS: ALK PHOS 80 U/L (45-117); BILIRUBIN,TOTAL 0.3 mg/dL (0.2-1.0); TOT PROT 6.6 g/dl (6.4-8.2)
[2017-08-26] MEDS ORDERED: LORazepam 1 MG TABLET PO ONE (07:01)
[2017-08-26] MEDS ORDERED: LORazepam 0.5 MG TABLET ONE (07:12)
--- NOTE | 2017-08-26 08:36 | PDOC ---
*Physical Exam - Vital Signs Last Vital Signs Temp Pulse Resp BP Pulse Ox 97.8 F 105 H 20 122/88 96 08/26/17 07:24 08/26/17 07:24 08/26/17 07:24 08/26/17 07:24 08/26/17 07:24 - Physical Exam General Appearance: Yes: Appropriately Dressed HEENT: positive: Normal Voice Neck: positive: Supple Respiratory/Chest: negative: Respiratory Distress Gastrointestinal/Abdominal: positive: Soft. negative: Tender Integumentary: positive: Dry, Warm Neurologic: positive: Alert ED Treatment Course - LABORATORY CBC & Chemistry Diagram: 08/26/17 03:54 08/26/17 03:54 - ADDITIONAL ORDERS Additional order review: Laboratory Results 08/26/17 03:54 Sodium 145 Potassium 3.3 L Chloride 103 Carbon Dioxide 29 Anion Gap 13 BUN 12 Creatinine 0.8 Creat Clearance w eGFR > 60 Random Glucose 107 H Calcium 8.4 L Magnesium 2.1 Total Bilirubin 0.3 AST 34 ALT 30 Alkaline Phosphatase 80 Total Protein 6.6 Albumin 3.4 Alcohol, Quantitative 165.0 H* 08/26/17 03:54 RBC 4.60 MCV 94.0 MCHC 33.6 RDW 21.4 H MPV 7.1 L Neutrophils % 51.6 Lymphocytes % 37.7 Monocytes % 9.4 Eosinophils % 0.6 Basophils % 0.7 - Medications Given in the ED: ED Medications Discontinued Medications Generic Name Dose Route Start Last Admin Trade Name Freq PRN Reason Stop Dose Admin Chlordiazepoxide HCl 50 mg 08/26/17 03:55 08/26/17 03:55 Librium - PO 08/26/17 03:56 50 mg NOW ONE Administration Lorazepam 2 mg 08/26/17 07:01 08/26/17 07:21 Ativan - PO 08/26/17 07:02 2 mg ONCE ONE Administration Medical Decision Making - Medical Decision Making 08/26/17 08:34 Signed out to me at 7 AM 57-year-old male, history of bipolar disorder, ADHD, polysubstance abuse, status post recent admission to detox at [facility] for alcohol, here for ETOH withdrawal and requesting admission to detox. Heart rate 117 at triage. Has since been given Ativan. As per prior team, plan is to contact [facility] to see if facility will allow readmission given recent inpt stay. 08/26/17 09:54 On reassessment, patient appears tremulous and complaining of weakness. Repeat vitals pending. Will give another dose of Ativan as ED currently out of IV Valium. IVF in progress. Patient was given dose of 50 mg Librium less than 2 hours ago. Will contact hospitalist to admit. Of note, spoke to Dr. Osborne at [facility] at ext [phone], who states that they cannot currently admit pt given less than 30 days since last admission. 08/26/17 11:10 Per inpt team, Shira Stewart was able to call [facility] and discuss case and states facility will now be accepting patient. On reassessment, patient complaining of nausea. Had some PVCs on monitor, but stable otherwise. Banana bag still in progress. Will give dose of Zofran and if continues to be stable, will send over to [facility] to detox *DC/Admit/Observation/Transfer Diagnosis at time of Disposition: Alcohol dependence, episodic drinking behavior Alcohol withdrawal Qualifiers: Complication of substance-induced condition: uncomplicated Qualified Code(s): F10.230 - Alcohol dependence with withdrawal, uncomplicated - Discharge Dispostion Disposition: HOME - Referrals - Patient Instructions Printed Discharge Instructions: DI for Alcohol Abuse Additional Instructions: You were treated for alcohol withdrawal and were transferred to [facility] to detox - Post Discharge Activity
[2017-08-26] MEDS ORDERED: SODIUM CHLORIDE 1,000 ML IV STA (09:50)
[2017-08-26] MEDS ORDERED: FOLIC ACID INJECTION - 1 MG, THIAMINE HCL 100 MG, MULTIVIT INJECTION ADULT 10 ML in SOD... IVPB ONE (09:58)
[2017-08-26] MEDS ORDERED: LORazepam 2 MG/ML SDV VIAL ONE (10:13)
--- NOTE | 2017-08-26 11:39 | PDOC ---
*Physical Exam - Vital Signs Last Vital Signs Temp Pulse Resp BP Pulse Ox 98.5 F 98 H 22 123/90 96 08/26/17 10:42 08/26/17 10:42 08/26/17 10:42 08/26/17 10:11 08/26/17 10:42 - Physical Exam General Appearance: Yes: Nourished, Appropriately Dressed Neck: positive: Trachea midline Respiratory/Chest: positive: Chest Tender, Lungs Clear Cardiovascular: positive: Regular Rhythm, S1, S2, Tachycardia Musculoskeletal: positive: Normal Inspection Extremity: positive: Normal Capillary Refill, Normal Inspection Integumentary: positive: Normal Color, Dry, Warm Neurologic: positive: Other (tremulous) Heart Score/ECG Review #1 General ECG Interpretation: Sinus Rhythm, Normal Intervals, No acute ischemic changes Compared to previous ECG there are: Other (sinus tachycardia 105bpm) ED Treatment Course - LABORATORY CBC & Chemistry Diagram: 08/26/17 03:54 08/26/17 03:54 - ADDITIONAL ORDERS Additional order review: Laboratory Results 08/26/17 03:54 Sodium 145 Potassium 3.3 L Chloride 103 Carbon Dioxide 29 Anion Gap 13 BUN 12 Creatinine 0.8 Creat Clearance w eGFR > 60 Random Glucose 107 H Calcium 8.4 L Magnesium 2.1 Total Bilirubin 0.3 AST 34 ALT 30 Alkaline Phosphatase 80 Total Protein 6.6 Albumin 3.4 Alcohol, Quantitative 165.0 H* 08/26/17 03:54 RBC 4.60 MCV 94.0 MCHC 33.6 RDW 21.4 H MPV 7.1 L Neutrophils % 51.6 Lymphocytes % 37.7 Monocytes % 9.4 Eosinophils % 0.6 Basophils % 0.7 - Medications Given in the ED: ED Medications Discontinued Medications Generic Name Dose Route Start Last Admin Trade Name Freq PRN Reason Stop Dose Admin Chlordiazepoxide HCl 50 mg 08/26/17 03:55 08/26/17 03:55 Librium - PO 08/26/17 03:56 50 mg NOW ONE Administration Sodium Chloride 1,000 mls @ 1,000 mls/hr 08/26/17 09:50 08/26/17 10:10 Normal Saline - IV 08/26/17 10:49 1,000 mls/hr ASDIR STA Administration Lorazepam 2 mg 08/26/17 07:01 07/06/18 07:21 Ativan - PO 08/26/17 07:02 2 mg ONCE ONE Administration Lorazepam 2 mg 08/26/17 09:53 08/26/17 10:20 Ativan Injection - IVPUSH 08/26/17 09:54 2 mg ONCE ONE Administration Medical Decision Making - Medical Decision Making 08/26/17 11:39 pt with h/o etoh abuse, requesting detox. will be going to [facility] for detox. given supplements here. labs reviewed and unremarkable. awaiting transfer to [facility]. *DC/Admit/Observation/Transfer Diagnosis at time of Disposition: Alcohol dependence, episodic drinking behavior Alcohol withdrawal Qualifiers: Complication of substance-induced condition: uncomplicated Qualified Code(s): F10.230 - Alcohol dependence with withdrawal, uncomplicated - Referrals - Patient Instructions Printed Discharge Instructions: DI for Alcohol Abuse - Post Discharge Activity
[2017-08-26] MEDS ORDERED: POTASSIUM CHLORIDE TABS 20 MEQ TABLET.ER (FP) PO ONE ×2 (11:40→12:13)
[2017-08-26 12:37] VITALS: BP 127/90; PULSE 94; TEMP 98.1
--- NOTE | 2017-08-28 10:15 | EKG ---
Test Reason : Blood Pressure : / mmHG Vent. Rate : 105 BPM Atrial Rate : 105 BPM P-R Int : 170 ms QRS Dur : 112 ms QT Int : 382 ms P-R-T Axes : 029 -48 029 degrees QTc Int : 504 ms SINUS TACHYCARDIA WITH FREQUENT PREMATURE VENTRICULAR COMPLEXES LOW VOLTAGE QRS INCOMPLETE RIGHT BUNDLE BRANCH BLOCK LEFT ANTERIOR FASCICULAR BLOCK INFERIOR INFARCT , AGE UNDETERMINED CANNOT RULE OUT ANTERIOR INFARCT , AGE UNDETERMINED ABNORMAL ECG WHEN COMPARED WITH ECG OF 01-AUG-2017 11:52, SIGNIFICANT CHANGES HAVE OCCURRED Confirmed by ZEINA URIOSTEGUI MD ([id number]) on 08/28/2017 10:14:34 AM Referred By: Confirmed By:ZEINA URIOSTEGUI MD
== END 2017-08-26 13:00 | disposition home or self-care (01) ==
LOC: JER 02:45
PROC: 3E033GC Introduction of Other Therapeutic Substance into Peripheral Vein, Percutaneous Approach (ICD-10-PCS; principal; 2017-08-26)
PROC: 3E033NZ Introduction of Analgesics, Hypnotics, Sedatives into Peripheral Vein, Percutaneous Approach (ICD-10-PCS; 2017-08-26)
PROC: 3E0337Z Introduction of Electrolytic and Water Balance Substance into Peripheral Vein, Percutaneous Approach (ICD-10-PCS; 2017-08-26)
DX: F10.120 Alcohol abuse with intoxication, uncomplicated (principal); Y90.6 Blood alcohol level of 120-199 mg/100 ml; I10 Essential (primary) hypertension; E78.00 Pure hypercholesterolemia, unspecified; K21.9 Gastro-esophageal reflux disease without esophagitis; Z86.73 Personal history of transient ischemic attack (TIA), and cerebral infarction without residual deficits; Z86.69 Personal history of other diseases of the nervous system and sense organs; Z59.0 Homelessness
CPT/HCPCS: 36415; 71045-TC-FY; 80053; 80307; 83735; 85025; 93005; 93010; 96361; 96365; 96366; 96375; 99284-25; J7030

== ENCOUNTER 2017-08-30 14:02 | Inpatient (IN) | payer OTHER ==
[2017-08-30] MEDS ORDERED: ACETAMINOPHEN 325 MG TABLET (FP) PO PRN (14:19)
[2017-08-30] MEDS ORDERED: guaiFENesin/D-METHORPHAN HB 10 ML UNIT-DOSE CUPS PO PRN (14:19)
[2017-08-30] MEDS ORDERED: IBUPROFEN 400 MG TABLET (FP) PO PRN (14:19)
[2017-08-30] MEDS ORDERED: LOPERAMIDE HCL 2 MG CAPSULE PO PRN (14:19)
[2017-08-30] MEDS ORDERED: MAGNESIUM HYDROX 2400MG/30ML ORAL SUSPENSION 30 ML CUP PO PRN (14:19)
[2017-08-30] MEDS ORDERED: P-EPHED 60MG/TRIPROLIDI 2.5MG TABLET PO PRN (14:19)
[2017-08-30] MEDS ORDERED: MENTHOL/PHENOL 1 EACH UD MM PRN (14:19)
[2017-08-30] MEDS ORDERED: MAG HYDROX/AL HYDROX/SIMETH 30 ML UNIT-DOSE CUP PO PRN (14:19)
[2017-08-30] MEDS ORDERED: MAGNESIUM CITRATE 300 ML BOTTLE PO PRN (14:19)
--- NOTE | 2017-08-30 14:27 | HP ---
[facility] Rehab Assess/Revision - Admission History Admitted to Rehab from: [facility] Date of Admission to Rehab: 08/30/2017 - Vital signs Vital Signs: NOTED; STABLE. - Findings Detox History & Physical reviewed: Yes Concur with findings: Yes Comments/Additional Findings: PATIENT'S MEDICAL / MEDICATION HISTORY REVIEWED PRIOR TO DISCHARGE FROM DETOX UNIT. PATIENT HAS HISTORY OF COUMADIN USE FOR HISTORY OF PE. COUMADIN, 5 MG PO DAILY @ 1800 ORDERED X 3 DAYS. PT/INR ORDERED FOR 09/02/2017. PATIENT TO BE EVALUATED FOR EFFECT / DOSAGE MODIFICATION (IF NECESSARY) WHEN THOSE RESULTS ARE AVAILABLE. PATIENT ADVISED TO FOLLOW-UP WITH DISABILITY COORDINATOR DR. NIMCO NAVARRO [place] AFTER DISCHARGE FROM DETOX UNIT FOR MEDICAL ASSESSMENT AND FOR HISTORY OF PE AND TREATMENT WITH COUMADIN. PATIENT VERBALIZED UNDERSTANDING OF RECOMMENDATIONS. PATIENT WAS DISCHARGED FROM DETOX UNIT TO BE TAKEN TO REHAB UNIT IN STABLE MEDICAL CONDITION. Inpatient Rehab Admission - Initial Determination Are CD services needed?: Yes Free of communicable disease: Yes Not in need of hospitalization: Yes - Rehab Admission Criteria Previous failed treatment: Yes Comorbidities: Yes Patient is meeting Inpatient Rehab admission criteria:: Yes
[2017-08-30] MEDS: WARFARIN NA 5 MG TABLET (UD) PO SCH (19:08)
[2017-08-30] MEDS ORDERED: traZODone HCL 100 MG TABLET (FP) PO SCH (22:00)
[2017-08-30] MEDS: ATORVASTATIN CA 10 MG TABLET (FP) PO SCH (22:29)
[2017-08-30] MEDS: THIAMINE HCL 100 MG TABLET (FP) PO SCH (22:29)
[2017-08-30] MEDS: MELATONIN 5 MG TABLETS PO PRN (22:30)
--- NOTE | 2017-08-31 06:57 | HP ---
Psychiatrist Admission - Data Date of interview: 08/31/17 Admission source: Self-referred Identifying data: This is the second [facility] admision for this 57 years old male,father of a 256 years old son, unemployed, homeless Medical History: Significant for hypertension, dyslipidemia, antecedent of CVA ( subdural hemorrhage from accidental fall) in 2017, past treatment for pulmonary embolism, withdrawal-related seizures, GERD, neuropathy, past history of right inguinal herniorraphy and arthroscopic surgery of right knee (torn meniscus : several years ago). Smokes cigarettes 1 ppd Psychiatric History: Patient is well known to rfp writer from a previous admission to this unit marilynn this year(03/11/17-03/28/17). Reports that he was diagnosed with ADHD at age 10 and Bipolar, OCD in his late 20's. Reports history of multiple psychiatric hospitalizations ([facility], [facility], [facility]). He is generally non adherent to OPD care and medications because of his addiction. Reports that last [facility]PD attended was [facility] in [place]. Prior to his recent admission to detox, He claims that he was in residential and prescribed Wellbutin XL 300 mg po daily , Trazadone 200 mg po HS and Lamictal 150 mg po BID. Claims he was off medications for a month prior to that detox admission. In detox, he saw Dr No on 08/27/17 and was prescribed only Wellbutrin XL 150 mg po daily. Trazadone was withheld due to abnormal EKG and Lamictal was withdrawn. Known history of suicidal ideation with intent to jump off of a bridge (no actual attempts). He claims in 2001 he was prevented from jumping [place] of the [place] bridge by officers of the [place] [employer] department. At present, reports feeling depressed and sleeping poorly. Requests to resume his medications as he was getting them while in residential. Physical/Sexual Abuse/Trauma History: Denies history of verbal, physical or sexual abuse as well as DV relationship. Reports serving one year in the [employer] with honorable discharge Additional Comment: Reports multiple previous misdemeanor arrests. No probation at present Vital Signs: Vital Signs - 24 hr 08/31/17 08/31/17 00:30 03:30 Respiratory 20 18 Rate Allergies/Adverse Reactions: Allergies Allergy/AdvReac Type Severity Reaction Status Date / Time No Known Allergies Allergy Verified 08/26/17 18:48 Date of last physical exam: 08/26/17 Concur with the findings of this exam: Yes - Substance Abuse/Tx History Hx Alcohol Use: Yes Hx Substance Use: No Substance Use Type: Alcohol (Started drinking alcohol at age 10, consumes 4-6 pints daily. Last drank on 08/25/17) Hx Substance Use Treatment: Yes (6 previous inpt detox & one inpt rehab @ [facility]) Mental Status Exam - Mental Status Exam Alert and Oriented to: Time, Place, Person Cognitive Function: Fair Patient Appearance: Disheveled Mood: Depressed, Anxious Affect: Normal Range Patient Behavior: Cooperative Speech Pattern: Clear Voice Loudness: Normal Thought Process: Intact, Goal Oriented Thought Disorder: Not Present Hallucinations: Denies Suicidal Ideation: Denies Homicidal Ideation: Denies Insight/Judgement: Fair Sleep: Poorly Appetite: Fair Muscle strength/Tone: Normal Gait/Station: Normal Psychiatric Findings - Problem List ([place] 1, 2,3) (1) Alcohol dependence Current Visit: No Status: Active (2) Nicotine dependence Current Visit: No Status: Acute Qualifiers: Nicotine product type: cigarettes Substance use status: uncomplicated Qualified Code(s): F17.210 - Nicotine dependence, cigarettes, uncomplicated (3) Bipolar disorder Current Visit: No Status: Chronic Qualifiers: Active/Remission status: remission status unspecified Qualified Code(s): F31.9 - Bipolar disorder, unspecified Comment: As per existing records. (4) OCD (obsessive compulsive disorder) Current Visit: No Status: Chronic (5) Substance induced mood disorder Current Visit: Yes Status: Acute (6) Substance-induced sleep disorder Current Visit: Yes Status: Acute (7) Essential hypertension Current Visit: No Status: Chronic (8) Gastroesophageal reflux disease Current Visit: No Status: Chronic (9) Hypercholesterolemia Current Visit: No Status: Chronic (10) Neuropathy Current Visit: No Status: Chronic (11) Seizure due to alcohol withdrawal Current Visit: No Status: Resolved Qualifiers: Complication of substance-induced condition: with unspecified complication Qualified Code(s): F10.239 - Alcohol dependence with withdrawal, unspecified; R56.9 - Unspecified convulsions; R56.9 - Unspecified convulsions; R56.9 - Unspecified convulsions; R56.9 - Unspecified convulsions (12) s/p repair of right inguinal hernia Current Visit: No Status: Resolved (13) History of pulmonary embolism Current Visit: No Status: Resolved (14) s/p arthroscopic surgery of right knee Current Visit: No Status: Resolved - Initial Treatment Plan Initial Treatment Plan: 1) Start Wellbutrin XL 300 mg po daily, Trazadone 200 mg po HS and Belsomra 10 mg po HS prn for insomnia. 2) Monitor progress
[2017-08-31] MEDS: NICOTINE 21 MG/24 HOURS TOPICAL PATCH TD SCH (09:43)
[2017-08-31] MEDS: PRENATAL VITAMINS W/ FOLIC ACID TABLET (FP) PO SCH (09:43)
[2017-08-31] MEDS: PANTOPRAZOLE 40 MG TABLET (FP) PO SCH (09:43)
[2017-08-31] MEDS: ENALAPRIL MALEATE 10 MG TABLET (FP) PO SCH (09:43)
[2017-08-31] MEDS: NICOTINE POLACRILEX 2 MG GUM BUC PRN ×3 (09:46→21:15)
[2017-08-31] MEDS: WARFARIN NA 5 MG TABLET (UD) PO SCH (17:35)
[2017-08-31] MEDS: THIAMINE HCL 100 MG TABLET (FP) PO SCH (22:14)
[2017-08-31] MEDS: ATORVASTATIN CA 10 MG TABLET (FP) PO SCH (22:14)
[2017-08-31] MEDS: traZODone HCL 100 MG TABLET (FP) PO SCH (22:14)
[2017-08-31] MEDS: SUVOREXANT 10 MG TABLET PO PRN (23:43)
[2017-09-01] MEDS: NICOTINE 21 MG/24 HOURS TOPICAL PATCH TD SCH (09:41)
[2017-09-01] MEDS: ENALAPRIL MALEATE 10 MG TABLET (FP) PO SCH (09:41)
[2017-09-01] MEDS: PANTOPRAZOLE 40 MG TABLET (FP) PO SCH (09:41)
[2017-09-01] MEDS: PRENATAL VITAMINS W/ FOLIC ACID TABLET (FP) PO SCH (09:41)
[2017-09-01] MEDS: NICOTINE POLACRILEX 2 MG GUM BUC PRN ×2 (09:44→22:04)
[2017-09-01] MEDS: WARFARIN NA 5 MG TABLET (UD) PO SCH (17:44)
[2017-09-01] MEDS ORDERED: PT OWN MED DRAWER 7, Y5N ONE (20:40)
[2017-09-01] MEDS: traZODone HCL 100 MG TABLET (FP) PO SCH (22:03)
[2017-09-01] MEDS: THIAMINE HCL 100 MG TABLET (FP) PO SCH (22:03)
[2017-09-01] MEDS: ATORVASTATIN CA 10 MG TABLET (FP) PO SCH (22:03)
[2017-09-02] MEDS: SUVOREXANT 10 MG TABLET PO PRN (00:19)
[2017-09-02] MEDS ORDERED: PT OWN MED DRAWER 7, Y5N ONE (09:06)
[2017-09-02] MEDS: NICOTINE 21 MG/24 HOURS TOPICAL PATCH TD SCH (09:47)
[2017-09-02] MEDS: ENALAPRIL MALEATE 10 MG TABLET (FP) PO SCH (09:47)
[2017-09-02] MEDS: PRENATAL VITAMINS W/ FOLIC ACID TABLET (FP) PO SCH (09:47)
[2017-09-02] MEDS: PANTOPRAZOLE 40 MG TABLET (FP) PO SCH (09:47)
[2017-09-02 10:54] LABS: INR 1.21 (0.82-1.09); PROTHROMBIN TIME (PATIENT) 13.7 SEC (9.7-13.0)
--- NOTE | 2017-09-02 13:47 | PN ---
S Progress Note Note: PT 13.7, INR 1.21. PT ON COUMADIN 5MG HS. WILL INCREASE TO 6MG HS STARTING TONIGHT AND REPEAT PT/INR 09/05/17. CONTINUE TO MONTIOR CLINICALLY.
[2017-09-02] MEDS: hydrOXYzine PAMOATE 50 MG CAPSULE (FP) PO PRN (16:26)
[2017-09-02] MEDS: NICOTINE POLACRILEX 2 MG GUM BUC PRN (16:27)
[2017-09-02] MEDS: WARFARIN NA 3 MG TABLET PO SCH (18:10)
[2017-09-02] MEDS: ATORVASTATIN CA 10 MG TABLET (FP) PO SCH (22:18)
[2017-09-02] MEDS: THIAMINE HCL 100 MG TABLET (FP) PO SCH (22:18)
[2017-09-02] MEDS: traZODone HCL 100 MG TABLET (FP) PO SCH (22:18)
[2017-09-03] MEDS: SUVOREXANT 10 MG TABLET PO PRN ×2 (00:24→23:47)
[2017-09-03] MEDS: NICOTINE 21 MG/24 HOURS TOPICAL PATCH TD SCH (09:30)
[2017-09-03] MEDS: PANTOPRAZOLE 40 MG TABLET (FP) PO SCH (09:30)
[2017-09-03] MEDS: PRENATAL VITAMINS W/ FOLIC ACID TABLET (FP) PO SCH (09:30)
--- NOTE | 2017-09-03 11:07 | PN ---
[facility] Progress Note Note: Patient requesting to have dosage of Enalapril lowered to 10 mg PO daily because he feels that 20 mg PO is causing his BP to become too low. Patient notes that he has been on dosage of 10 mg PO daily in past. Results of last several BP readings noted. Patient denies chest pain, dizziness, and SOB. Will change dose of Enalapril to 10 mg PO daily and continue to monitor BP. Kerri Villalobos NP
[2017-09-03] MEDS: ENALAPRIL MALEATE 10 MG TABLET (FP) PO SCH ×2 (12:12→12:49)
[2017-09-03] MEDS ORDERED: PT OWN MED DRAWER 7, Y5N ONE ×2 (17:35→17:36)
[2017-09-03] MEDS: WARFARIN NA 3 MG TABLET PO SCH (17:36)
[2017-09-03] MEDS: NICOTINE POLACRILEX 2 MG GUM BUC PRN (17:37)
[2017-09-03] MEDS: hydrOXYzine PAMOATE 50 MG CAPSULE (FP) PO PRN (20:16)
[2017-09-03] MEDS: traZODone HCL 100 MG TABLET (FP) PO SCH ×2 (22:15→22:23)
[2017-09-03] MEDS: ATORVASTATIN CA 10 MG TABLET (FP) PO SCH ×2 (22:15→22:24)
[2017-09-03] MEDS: THIAMINE HCL 100 MG TABLET (FP) PO SCH ×2 (22:15→22:23)
[2017-09-04] MEDS: ENALAPRIL MALEATE 10 MG TABLET (FP) PO SCH (09:30)
[2017-09-04] MEDS: PANTOPRAZOLE 40 MG TABLET (FP) PO SCH (09:30)
[2017-09-04] MEDS: NICOTINE 21 MG/24 HOURS TOPICAL PATCH TD SCH (09:30)
[2017-09-04] MEDS: PRENATAL VITAMINS W/ FOLIC ACID TABLET (FP) PO SCH (09:31)
[2017-09-04] MEDS ORDERED: PT OWN MED DRAWER 7, Y5N ONE (18:01)
[2017-09-04] MEDS: WARFARIN NA 3 MG TABLET PO SCH (18:01)
[2017-09-04] MEDS: NICOTINE POLACRILEX 2 MG GUM BUC PRN ×2 (18:01→22:08)
[2017-09-04] MEDS: traZODone HCL 100 MG TABLET (FP) PO SCH (22:07)
[2017-09-04] MEDS: THIAMINE HCL 100 MG TABLET (FP) PO SCH (22:07)
[2017-09-04] MEDS: ATORVASTATIN CA 10 MG TABLET (FP) PO SCH (22:07)
[2017-09-05] MEDS: SUVOREXANT 10 MG TABLET PO PRN (00:37)
[2017-09-05] MEDS: hydrOXYzine PAMOATE 50 MG CAPSULE (FP) PO PRN (00:38)
[2017-09-05] MEDS: NICOTINE 21 MG/24 HOURS TOPICAL PATCH TD SCH (09:49)
[2017-09-05] MEDS: PRENATAL VITAMINS W/ FOLIC ACID TABLET (FP) PO SCH (09:50)
[2017-09-05] MEDS: ENALAPRIL MALEATE 10 MG TABLET (FP) PO SCH (09:50)
[2017-09-05] MEDS: PANTOPRAZOLE 40 MG TABLET (FP) PO SCH (09:50)
[2017-09-05 09:58] LABS: INR 1.37 (0.82-1.09); PROTHROMBIN TIME (PATIENT) 15.5 SEC (9.7-13.0)
[2017-09-05] MEDS ORDERED: WARFARIN NA 3 MG TABLET PO SCH (12:52)
--- NOTE | 2017-09-05 12:54 | PN ---
S Progress Note Note: PT/INR RESULTS 15.5/ 1.37. WILL INCREASE COUMADIN TO 8MG HS AND REPEAT LEVELS ON 09/07/17. CONTINUE TO MONITOR CLINICALLY.
[2017-09-05] MEDS: NICOTINE POLACRILEX 2 MG GUM BUC PRN ×2 (17:38→21:50)
--- NOTE | 2017-09-05 18:40 | PN ---
S Progress Note Note: Vital Signs Temperature 97.9 F 09/05/17 06:46 Pulse Rate 85 09/05/17 10:00 Respiratory Rate 18 09/05/17 06:46 Blood Pressure 118/67 09/05/17 10:00 O2 Sat by Pulse Oximetry (%) Patient is a 57 yo old male with hx of PE, asymptomatic. Patient currently refuse current increase in Coumadin dose. Patient was educated on the reason why dose was increase, and the impact ETOH has his INR levels. Patient educated on the risk of not taking the medication. Patient reports he with like to stop anticoagulant therapy, and patient advise to follow up with his PMD. Patient verbalized understanding and agree to take his medications as directed. Continue to monitor
[2017-09-05] MEDS: WARFARIN NA 5 MG, WARFARIN NA 3 MG PO SCH (19:07)
[2017-09-05] MEDS: traZODone HCL 100 MG TABLET (FP) PO SCH (21:49)
[2017-09-05] MEDS: ATORVASTATIN CA 10 MG TABLET (FP) PO SCH (21:49)
[2017-09-05] MEDS: THIAMINE HCL 100 MG TABLET (FP) PO SCH (21:50)
[2017-09-06] MEDS: SUVOREXANT 10 MG TABLET PO PRN (00:58)
[2017-09-06] MEDS: hydrOXYzine PAMOATE 50 MG CAPSULE (FP) PO PRN (00:59)
[2017-09-06] MEDS: PRENATAL VITAMINS W/ FOLIC ACID TABLET (FP) PO SCH (09:36)
[2017-09-06] MEDS: NICOTINE 21 MG/24 HOURS TOPICAL PATCH TD SCH (09:36)
[2017-09-06] MEDS: ENALAPRIL MALEATE 10 MG TABLET (FP) PO SCH (09:36)
[2017-09-06] MEDS: PANTOPRAZOLE 40 MG TABLET (FP) PO SCH (09:36)
--- NOTE | 2017-09-06 09:38 | PN ---
[facility] Progress Note Note: Psychiatric nurse practitioner : Belsomra 10mg qhs prn renewed for insomnia.
[2017-09-06] MEDS: NICOTINE POLACRILEX 2 MG GUM BUC PRN ×2 (17:26→20:37)
[2017-09-06] MEDS: WARFARIN NA 5 MG, WARFARIN NA 3 MG PO SCH (17:26)
[2017-09-06] MEDS: ATORVASTATIN CA 10 MG TABLET (FP) PO SCH (21:48)
[2017-09-06] MEDS: THIAMINE HCL 100 MG TABLET (FP) PO SCH (21:48)
[2017-09-06] MEDS: traZODone HCL 100 MG TABLET (FP) PO SCH (21:48)
[2017-09-07] MEDS: hydrOXYzine PAMOATE 50 MG CAPSULE (FP) PO PRN (00:35)
[2017-09-07] MEDS: SUVOREXANT 10 MG TABLET PO PRN (00:36)
[2017-09-07] MEDS: ENALAPRIL MALEATE 10 MG TABLET (FP) PO SCH (09:52)
[2017-09-07] MEDS: NICOTINE 21 MG/24 HOURS TOPICAL PATCH TD SCH (09:52)
[2017-09-07] MEDS: PRENATAL VITAMINS W/ FOLIC ACID TABLET (FP) PO SCH (09:52)
[2017-09-07] MEDS: PANTOPRAZOLE 40 MG TABLET (FP) PO SCH (09:52)
[2017-09-07] MEDS: NICOTINE POLACRILEX 2 MG GUM BUC PRN (09:53)
[2017-09-07 09:54] LABS: INR 1.7 (0.82-1.09); PROTHROMBIN TIME (PATIENT) 19.2 SEC (9.7-13.0)
[2017-09-07] MEDS: WARFARIN NA 5 MG, WARFARIN NA 3 MG PO SCH (18:09)
[2017-09-07] MEDS: traZODone HCL 100 MG TABLET (FP) PO SCH (21:50)
[2017-09-07] MEDS: THIAMINE HCL 100 MG TABLET (FP) PO SCH (21:50)
[2017-09-07] MEDS: ATORVASTATIN CA 10 MG TABLET (FP) PO SCH (21:50)
[2017-09-08] MEDS: MELATONIN 5 MG TABLETS PO PRN (00:42)
[2017-09-08] MEDS: SUVOREXANT 10 MG TABLET PO PRN (00:42)
[2017-09-08] MEDS: hydrOXYzine PAMOATE 50 MG CAPSULE (FP) PO PRN (00:42)
[2017-09-08] MEDS: NICOTINE POLACRILEX 2 MG GUM BUC PRN ×3 (09:44→22:45)
[2017-09-08] MEDS: ENALAPRIL MALEATE 10 MG TABLET (FP) PO SCH (09:44)
[2017-09-08] MEDS: PRENATAL VITAMINS W/ FOLIC ACID TABLET (FP) PO SCH (09:44)
[2017-09-08] MEDS: NICOTINE 21 MG/24 HOURS TOPICAL PATCH TD SCH (09:44)
[2017-09-08] MEDS: PANTOPRAZOLE 40 MG TABLET (FP) PO SCH (09:44)
--- NOTE | 2017-09-08 13:56 | PN ---
S Progress Note Note: Vital Signs Temperature 96.4 F L 09/08/17 06:52 Pulse Rate 88 09/08/17 10:00 Respiratory Rate 18 09/08/17 10:00 Blood Pressure 117/77 09/08/17 10:00 O2 Sat by Pulse Oximetry (%) Laboratory Last Values PT with INR 19.20 SEC (9.7-13.0) H 09/07/17 08:15 INR 1.70 (0.82-1.09) H 09/07/17 08:15 improvement in INR since last labs repeat INR in AM continue to monitor
[2017-09-08] MEDS: THIAMINE HCL 100 MG TABLET (FP) PO SCH (22:42)
[2017-09-08] MEDS: traZODone HCL 100 MG TABLET (FP) PO SCH (22:42)
[2017-09-08] MEDS: ATORVASTATIN CA 10 MG TABLET (FP) PO SCH (22:43)
[2017-09-08] MEDS ORDERED: WARFARIN NA 5 MG TABLET (UD) PO SCH (23:15)
--- NOTE | 2017-09-08 23:16 | PN ---
[facility] Progress Note Note: coumadin 8mg dose renewed inr 1.70
[2017-09-08] MEDS: WARFARIN NA 5 MG, WARFARIN NA 3 MG PO SCH (23:25)
[2017-09-08] MEDS ORDERED: WARFARIN NA 5 MG, WARFARIN NA 3 MG PO SCH (23:30)
[2017-09-09] MEDS: hydrOXYzine PAMOATE 50 MG CAPSULE (FP) PO PRN (00:46)
[2017-09-09] MEDS: SUVOREXANT 10 MG TABLET PO PRN (00:46)
[2017-09-09] MEDS: NICOTINE 21 MG/24 HOURS TOPICAL PATCH TD SCH (10:01)
[2017-09-09] MEDS: ENALAPRIL MALEATE 10 MG TABLET (FP) PO SCH (10:01)
[2017-09-09] MEDS: PRENATAL VITAMINS W/ FOLIC ACID TABLET (FP) PO SCH (10:01)
[2017-09-09] MEDS: PANTOPRAZOLE 40 MG TABLET (FP) PO SCH (10:01)
[2017-09-09 10:20] LABS: INR 1.8 (0.82-1.09); PROTHROMBIN TIME (PATIENT) 20.3 SEC (9.7-13.0)
[2017-09-09] MEDS: NICOTINE POLACRILEX 2 MG GUM BUC PRN (17:44)
[2017-09-09] MEDS: WARFARIN NA 5 MG, WARFARIN NA 3 MG PO SCH (17:44)
[2017-09-09] MEDS: ATORVASTATIN CA 10 MG TABLET (FP) PO SCH (22:11)
[2017-09-09] MEDS: traZODone HCL 100 MG TABLET (FP) PO SCH (22:11)
[2017-09-09] MEDS: THIAMINE HCL 100 MG TABLET (FP) PO SCH (22:11)
[2017-09-10] MEDS: PANTOPRAZOLE 40 MG TABLET (FP) PO SCH (09:41)
[2017-09-10] MEDS: NICOTINE 21 MG/24 HOURS TOPICAL PATCH TD SCH (09:41)
[2017-09-10] MEDS: ENALAPRIL MALEATE 10 MG TABLET (FP) PO SCH (09:41)
[2017-09-10] MEDS: PRENATAL VITAMINS W/ FOLIC ACID TABLET (FP) PO SCH (09:41)
[2017-09-10] MEDS: NICOTINE POLACRILEX 2 MG GUM BUC PRN ×2 (15:47→17:54)
[2017-09-10] MEDS: WARFARIN NA 5 MG, WARFARIN NA 3 MG PO SCH (17:53)
[2017-09-10] MEDS: traZODone HCL 100 MG TABLET (FP) PO SCH (21:52)
[2017-09-10] MEDS: ATORVASTATIN CA 10 MG TABLET (FP) PO SCH (21:52)
[2017-09-10] MEDS: THIAMINE HCL 100 MG TABLET (FP) PO SCH (21:52)
[2017-09-11] MEDS: hydrOXYzine PAMOATE 50 MG CAPSULE (FP) PO PRN (02:14)
[2017-09-11] MEDS: SUVOREXANT 10 MG TABLET PO PRN (02:14)
[2017-09-11] MEDS: ENALAPRIL MALEATE 10 MG TABLET (FP) PO SCH (09:57)
[2017-09-11] MEDS: PRENATAL VITAMINS W/ FOLIC ACID TABLET (FP) PO SCH (09:57)
[2017-09-11] MEDS: PANTOPRAZOLE 40 MG TABLET (FP) PO SCH (09:57)
[2017-09-11] MEDS: NICOTINE 21 MG/24 HOURS TOPICAL PATCH TD SCH (09:57)
[2017-09-11] MEDS: NICOTINE POLACRILEX 2 MG GUM BUC PRN ×2 (16:28→21:53)
[2017-09-11] MEDS: WARFARIN NA 5 MG, WARFARIN NA 3 MG PO SCH (18:19)
[2017-09-11] MEDS: traZODone HCL 100 MG TABLET (FP) PO SCH (21:38)
[2017-09-11] MEDS: THIAMINE HCL 100 MG TABLET (FP) PO SCH (21:38)
[2017-09-11] MEDS: ATORVASTATIN CA 10 MG TABLET (FP) PO SCH (21:38)
[2017-09-12] MEDS: hydrOXYzine PAMOATE 50 MG CAPSULE (FP) PO PRN (00:53)
[2017-09-12] MEDS: SUVOREXANT 10 MG TABLET PO PRN (00:53)
[2017-09-12] MEDS: NICOTINE 21 MG/24 HOURS TOPICAL PATCH TD SCH (09:49)
[2017-09-12] MEDS: PANTOPRAZOLE 40 MG TABLET (FP) PO SCH (09:49)
[2017-09-12] MEDS: ENALAPRIL MALEATE 10 MG TABLET (FP) PO SCH (09:49)
[2017-09-12] MEDS: PRENATAL VITAMINS W/ FOLIC ACID TABLET (FP) PO SCH (09:49)
[2017-09-12] MEDS: NICOTINE POLACRILEX 2 MG GUM BUC PRN ×3 (15:42→21:56)
[2017-09-12] MEDS: WARFARIN NA 5 MG, WARFARIN NA 3 MG PO SCH (17:25)
[2017-09-12] MEDS: ATORVASTATIN CA 10 MG TABLET (FP) PO SCH (21:56)
[2017-09-12] MEDS: THIAMINE HCL 100 MG TABLET (FP) PO SCH (21:56)
[2017-09-12] MEDS: traZODone HCL 100 MG TABLET (FP) PO SCH (21:56)
[2017-09-13] MEDS: hydrOXYzine PAMOATE 50 MG CAPSULE (FP) PO PRN (01:05)
[2017-09-13] MEDS: SUVOREXANT 10 MG TABLET PO PRN (01:05)
[2017-09-13] MEDS: ENALAPRIL MALEATE 10 MG TABLET (FP) PO SCH (09:42)
[2017-09-13] MEDS: PANTOPRAZOLE 40 MG TABLET (FP) PO SCH (09:42)
[2017-09-13] MEDS: PRENATAL VITAMINS W/ FOLIC ACID TABLET (FP) PO SCH (09:42)
[2017-09-13 10:01] LABS: INR 2.51 (0.82-1.09); PROTHROMBIN TIME (PATIENT) 28.4 SEC (9.7-13.0)
[2017-09-13] MEDS: NICOTINE 21 MG/24 HOURS TOPICAL PATCH TD SCH (10:14)
[2017-09-13] MEDS: NICOTINE POLACRILEX 2 MG GUM BUC PRN (15:29)
--- NOTE | 2017-09-13 15:53 | PN ---
S Progress Note Note: Vital Signs Temperature 97.5 F L 09/13/17 06:46 Pulse Rate 94 H 09/13/17 10:00 Respiratory Rate 18 09/13/17 10:00 Blood Pressure 112/73 09/13/17 10:00 O2 Sat by Pulse Oximetry (%) Laboratory Last Values PT with INR 28.40 SEC (9.7-13.0) H 09/13/17 07:00 INR 2.51 (0.82-1.09) H D 09/13/17 07:00 INR within therapeutic range continue Coumadin 8mg continue to monitor repeat INR Tuesday09/16/17
[2017-09-13] MEDS: WARFARIN NA 5 MG, WARFARIN NA 3 MG PO SCH (17:26)
[2017-09-13] MEDS: ATORVASTATIN CA 10 MG TABLET (FP) PO SCH (21:55)
[2017-09-13] MEDS: traZODone HCL 100 MG TABLET (FP) PO SCH (21:55)
[2017-09-13] MEDS: THIAMINE HCL 100 MG TABLET (FP) PO SCH (21:55)
[2017-09-14] MEDS: hydrOXYzine PAMOATE 50 MG CAPSULE (FP) PO PRN (00:55)
[2017-09-14] MEDS: SUVOREXANT 10 MG TABLET PO PRN (00:55)
[2017-09-14] MEDS: NICOTINE 21 MG/24 HOURS TOPICAL PATCH TD SCH (09:34)
[2017-09-14] MEDS: PRENATAL VITAMINS W/ FOLIC ACID TABLET (FP) PO SCH (09:34)
[2017-09-14] MEDS: PANTOPRAZOLE 40 MG TABLET (FP) PO SCH (09:34)
[2017-09-14] MEDS: ENALAPRIL MALEATE 10 MG TABLET (FP) PO SCH (09:34)
[2017-09-14] MEDS: WARFARIN NA 5 MG, WARFARIN NA 3 MG PO SCH (17:24)
[2017-09-14] MEDS: NICOTINE POLACRILEX 2 MG GUM BUC PRN ×2 (17:25→19:56)
[2017-09-14] MEDS: ATORVASTATIN CA 10 MG TABLET (FP) PO SCH (21:42)
[2017-09-14] MEDS: THIAMINE HCL 100 MG TABLET (FP) PO SCH (21:42)
[2017-09-14] MEDS: traZODone HCL 100 MG TABLET (FP) PO SCH (21:42)
[2017-09-15] MEDS: hydrOXYzine PAMOATE 50 MG CAPSULE (FP) PO PRN (01:02)
[2017-09-15] MEDS: SUVOREXANT 10 MG TABLET PO PRN (01:02)
[2017-09-15] MEDS: ENALAPRIL MALEATE 10 MG TABLET (FP) PO SCH (09:48)
[2017-09-15] MEDS: NICOTINE 21 MG/24 HOURS TOPICAL PATCH TD SCH (09:48)
[2017-09-15] MEDS: PRENATAL VITAMINS W/ FOLIC ACID TABLET (FP) PO SCH (09:48)
[2017-09-15] MEDS: PANTOPRAZOLE 40 MG TABLET (FP) PO SCH (09:49)
[2017-09-15] MEDS: NICOTINE POLACRILEX 2 MG GUM BUC PRN ×2 (16:05→19:00)
[2017-09-15] MEDS: WARFARIN NA 5 MG, WARFARIN NA 3 MG PO SCH (18:00)
[2017-09-15] MEDS: THIAMINE HCL 100 MG TABLET (FP) PO SCH (21:44)
[2017-09-15] MEDS: traZODone HCL 100 MG TABLET (FP) PO SCH (21:44)
[2017-09-15] MEDS: ATORVASTATIN CA 10 MG TABLET (FP) PO SCH (21:44)
[2017-09-15] MEDS ORDERED: SUVOREXANT 10 MG TABLET PO PRN (22:00)
[2017-09-16] MEDS: hydrOXYzine PAMOATE 50 MG CAPSULE (FP) PO PRN (01:06)
[2017-09-16 06:45] VITALS: TEMP 97.5
[2017-09-16 10:03] LABS: INR 3.49 (0.82-1.09); PROTHROMBIN TIME (PATIENT) 39.4 SEC (9.7-13.0)
[2017-09-16] MEDS: NICOTINE 21 MG/24 HOURS TOPICAL PATCH TD SCH (10:05)
[2017-09-16] MEDS: PRENATAL VITAMINS W/ FOLIC ACID TABLET (FP) PO SCH (10:05)
[2017-09-16] MEDS: PANTOPRAZOLE 40 MG TABLET (FP) PO SCH (10:06)
[2017-09-16] MEDS: ENALAPRIL MALEATE 10 MG TABLET (FP) PO SCH (10:06)
[2017-09-16 10:16] VITALS: BP 135/92; PULSE 78
--- NOTE | 2017-09-16 12:03 | PN ---
Psychiatric Progress Note Vital Signs: Vital Signs Period Temp Pulse Resp BP Sys/Herrera Pulse Ox Last 24 Hr 97.5 F 78-84 17-20 129-135/88-92 Date of Session: 09/16/17 Chief Complaint:: Discharge Note HPI: Patient addressing Alcohol Dependence comorbid with Nicotine Dependence, Bipolar Disorder, Substance-Induced Mood Disorder and Substance-Induced Sleep Disorder ROS: HTN, HLD, GERD, Neuropathy, Alcohol withdawal seizure, H/O PE Current Medications: Active Medications Generic Name Dose Route Start Last Admin Trade Name Freq PRN Reason Stop Dose Admin Acetaminophen 650 mg 08/30/17 14:19 Tylenol - PO Q4H PRN FEVER Al Hydroxide/Mg Hydroxide 30 ml 08/30/17 14:19 Mylanta Oral Suspension - PO Q6H PRN DYSPEPSIA Atorvastatin Calcium 10 mg 09/03/17 22:30 09/15/17 21:44 Lipitor - PO 10 mg HS MARY Administration Bupropion HCl 300 mg 08/31/17 10:00 09/16/17 10:06 Wellbutrin Xl - PO 300 mg DAILY MARY Administration Enalapril Maleate 10 mg 09/03/17 11:15 09/16/17 10:06 Vasotec - PO 10 mg DAILY MARY Administration Eucalyptus/Menthol/Phenol/Sorbitol 1 each 08/30/17 14:19 Cepastat Lozenge - MM Q4H PRN SORE THROAT Guaifenesin 10 ml 08/30/17 14:19 Robitussin Dm - PO Q6H PRN COUGH Hydroxyzine Pamoate 50 mg 09/02/17 11:25 09/16/17 01:06 Vistaril - PO 50 mg Q4H PRN Administration FOR ITCHING Loperamide HCl 4 mg 08/30/17 14:19 Imodium - PO Q6H PRN DIARRHEA Magnesium Citrate 300 ml 08/30/17 14:19 Citroma - PO Q48H PRN CONSTIPATION Magnesium Hydroxide 30 ml 08/30/17 14:19 Milk Of Magnesia - PO DAILY PRN CONSTIPATION Melatonin 5 mg 08/30/17 22:00 09/08/17 00:42 Melatonin PO 5 mg HS PRN Administration INSOMNIA Nicotine 21 mg 08/31/17 10:00 09/16/17 10:05 Nicoderm Patch - TD 21 mg DAILY MARY Administration Nicotine Polacrilex 2 mg 08/30/17 14:19 09/15/17 19:00 Nicorette Gum - BUC 2 mg Q2H PRN Administration NICOTINE REPLACEMENT RX Pantoprazole Sodium 40 mg 08/31/17 10:00 09/16/17 10:06 Protonix - PO 40 mg DAILY MARY Administration Multivit/Folic Acid/Iron 1 tab 08/31/17 10:00 09/16/17 10:05 Vitamins (Sjr) - PO 1 tab DAILY MARY Administration Pseudoephedrine/Triprolidine 1 combo 08/30/17 14:19 Actifed - PO TID PRN NASAL CONGESTION Suvorexant 10 mg 09/15/17 22:00 09/16/17 01:06 Belsomra PO 09/18/17 21:59 10 mg HS PRN Administration INSOMNIA Thiamine HCl 100 mg 09/03/17 22:30 09/15/17 21:44 Vitamin B1 - PO 100 mg HS MARY Administration Trazodone HCl 200 mg 09/03/17 22:30 09/15/17 21:44 Desyrel - PO 200 mg HS MARY Administration Warfarin Sodium 5 mg/ Warfarin 8 mg 09/08/17 23:30 09/15/17 18:00 Sodium 3 mg PO 8 mg DAILY@1800 MARY Administration Current Side Effect: No Lab tests ordered: Yes Lab tests reviewed: Yes Provider note:: Patient has completed this program today. He has met his treatment goals and will continue to address his issues in outpatient treatment at [facility]. He responded well to Wellbutrin Xl 300 mg po daily and Trazadone 200 mg po HS. Scripts for these medications are electronically transferred to [facility] at [address] [place] [address]. He is stable for discharge today Total face to face time:: 35 Mental Status Exam - Mental Status Exam Alert and Oriented to: Time, Place, Person Cognitive Function: Fair Patient Appearance: Well Groomed Mood: Hopeful, Euthymic Affect: Appropriate Patient Behavior: Cooperative Speech Pattern: Clear Voice Loudness: Normal Thought Process: Intact, Goal Oriented Thought Disorder: Not Present Hallucinations: Denies Suicidal Ideation: Denies Homicidal Ideation: Denies Insight/Judgement: Fair Sleep: Fair Appetite: Good Muscle strength/Tone: Normal Gait/Station: Normal Psychiatric Treatment Plan - Problem List (1) Alcohol dependence Current Visit: No (2) Nicotine dependence Current Visit: No Qualifiers: Nicotine product type: cigarettes Substance use status: uncomplicated Qualified Code(s): F17.210 - Nicotine dependence, cigarettes, uncomplicated (3) Bipolar disorder Current Visit: No Qualifiers: Active/Remission status: remission status unspecified Qualified Code(s): F31.9 - Bipolar disorder, unspecified Comment: As per existing records. (4) OCD (obsessive compulsive disorder) Current Visit: No (5) Substance induced mood disorder Current Visit: Yes (6) Substance-induced sleep disorder Current Visit: Yes (7) Essential hypertension Current Visit: No (8) Gastroesophageal reflux disease Current Visit: No (9) Hypercholesterolemia Current Visit: No (10) Neuropathy Current Visit: No (11) Seizure due to alcohol withdrawal Current Visit: No Qualifiers: Complication of substance-induced condition: with unspecified complication Qualified Code(s): F10.239 - Alcohol dependence with withdrawal, unspecified; R56.9 - Unspecified convulsions; R56.9 - Unspecified convulsions; R56.9 - Unspecified convulsions; R56.9 - Unspecified convulsions (12) s/p repair of right inguinal hernia Current Visit: No (13) History of pulmonary embolism Current Visit: No (14) s/p arthroscopic surgery of right knee Current Visit: No Initial treatment plan: Patient is discharged today and referred to [facility] for outpatient treatment
--- NOTE | 2017-09-16 15:55 | PN ---
[facility] Progress Note Note: Patient to follow up with primary care provider. Home medications sent to preferred pharmacy [facility]. Patient to hold Coumadin dose for today and resume tomorrow at lower dose. If worsening symptoms patient to follow up with ED or urgent care.
== END 2017-09-16 13:00 | disposition home or self-care (01) | DRG 772 ==
LOC: YASAS 14:02 → Y3W 14:04
PROVIDERS: ADMIT Psychiatry & Neurology Psychiatry; ATTEND Psychiatry & Neurology Psychiatry
PROC: HZ42ZZZ Group Counseling for Substance Abuse Treatment, Cognitive-Behavioral (ICD-10-PCS; principal; 2017-08-30)
DX: F10.20 Alcohol dependence, uncomplicated (principal); F17.210 Nicotine dependence, cigarettes, uncomplicated; F42.9 Obsessive-compulsive disorder, unspecified; F31.9 Bipolar disorder, unspecified; F19.24 Other psychoactive substance dependence with psychoactive substance-induced mood disorder; F19.282 Other psychoactive substance dependence with psychoactive substance-induced sleep disorder; E78.00 Pure hypercholesterolemia, unspecified; I10 Essential (primary) hypertension; K21.9 Gastro-esophageal reflux disease without esophagitis; G62.9 Polyneuropathy, unspecified; G40.509 Epileptic seizures related to external causes, not intractable, without status epilepticus; Z86.711 Personal history of pulmonary embolism; Z79.01 Long term (current) use of anticoagulants; Z98.890 Other specified postprocedural states
CPT/HCPCS: 36415; 85610